=== PATIENT | female | born 1960 | race American Indian/Alaskan Native ===

== ENCOUNTER 2017-09-01 17:11 | Emergency (ER) | payer MEDICAID ==
[2017-09-01 19:58] LABS: Basophils % (Auto) 2.1 % (0.0-1.8); Hematocrit 33.2 % (30.3-42.9); Hemoglobin 10.8 gm/dl (10.1-14.3); Mean Corpuscular HGB Conc 33 % (30-34); Mean Corpuscular Hemoglobin 28 pg (28-32); Mean Corpuscular Volume 87 fl (79-97); Platelet Count 250 K/mm3 (140-440); Red Blood Count 3.83 M/mm3 (3.65-5.03); Red Cell Distribution Width 14.9 % (13.2-15.2); White Blood Count 9.2 K/mm3 (4.5-11.0)
[2017-09-01 20:23] LABS: Alanine Aminotransferase 12 units/L (7-56); Albumin 3.9 g/dL (3.9-5); Alkaline Phosphatase 134 units/L (35-129); Anion Gap 16 mmol/L; BUN/Creatinine Ratio 26; Bilirubin,Total < 0.20 mg/dL (0.1-1.2); Blood Urea Nitrogen 21 mg/dL (7-17); Calcium 9.1 mg/dL (8.4-10.2); Carbon Dioxide 24 mmol/L (22-30); Chloride 107.6 mmol/L (98-107); Glucose 117 mg/dL (65-100); Lipase 19 units/L (13-60); Potassium 3.8 mmol/L (3.6-5.0); Sodium 144 mmol/L (137-145); Total Protein 7.8 g/dL (6.3-8.2)
--- NOTE | 2017-09-02 07:43 | XRay Report ---
PA and lateral chest: Chest pain. There is focal atelectasis at the left base. Lungs otherwise appear clear and the heart is normal in size. There is no vascular congestion. Impression: Focal left basilar atelectasis.
[2017-09-02] MEDS ORDERED: MORPHINE IV ONE ×2 (08:19→10:32)
[2017-09-02] MEDS ORDERED: DECADRON IV ONE (08:19)
[2017-09-02] MEDS ORDERED: BENADRYL IV ONE (08:20)
--- NOTE | 2017-09-02 08:22 | Emergency Department Report ---
ED Chest Pain HPI - General Chief Complaint: Chest Pain Stated Complaint: VOMITING/BACK AND CHEST PAIN Time Seen by Provider: 09/02/17 07:49 Source: patient Mode of arrival: Ambulatory Limitations: No Limitations - History of Present Illness Initial Comments: 57-year-old female with known history of lupus here with a complaint of diffuse body aches and rash itchiness and some mild chest pain. The patient has had intermittent pain like this over the course of last 3 months. She states she's had multiple lupus flares of this time. She denies any shortness of breath. She's no fevers or but some chills. She's had some nausea. MD Complaint: chest pain, other (diffuse body pain) -: Sudden Onset: during rest Pain Location: left chest Pain Radiation: none Severity scale (0 -10): 10 Improves With: nothing Worsens With: nothing - Related Data Home Medications Medication Instructions Recorded Confirmed Last Taken AtorvaSTATin [Lipitor] 10 mg PO QHS 09/20/15 12/07/15 12/06/15 Metformin HCl [Fortamet ER] 500 mg PO QDAY 09/20/15 12/07/15 12/07/15 Metoprolol [Lopressor TAB] 25 mg PO BID 09/20/15 12/07/15 12/07/15 Previous Rx's Medication Instructions Recorded Last Taken Type Pantoprazole [Protonix TAB] 40 mg PO QDAY #30 tablet 09/24/15 1 Month Ago Rx ALPRAZolam [Xanax TAB] 0.25 mg PO TID PRN #15 tab 12/08/15 Unknown Rx Aspirin [Aspirin TAB] 325 mg PO QDAY #30 tablet 12/08/15 Unknown Rx Meclizine [Antivert] 12.5 mg PO BID PRN #10 tablet 12/08/15 Unknown Rx Promethazine [Phenergan TAB] 25 mg PO Q6HR PRN #20 tab 12/28/15 Unknown Rx Promethazine [Phenergan] 25 mg VA Q6HR PRN #20 supp.rect 12/28/15 Unknown Rx Ranitidine HCl [Zantac 150 MG TAB] 150 mg PO BID #30 tablet 12/28/15 Unknown Rx HYDROcodone/APAP 5-325 [[place] 1 - 2 each PO Q6HR PRN #14 tablet 09/02/17 Unknown Rx 5-325 mg TAB] predniSONE [Deltasone] 40 mg PO QDAY #8 tab 09/02/17 Unknown Rx Allergies Allergy/AdvReac Type Severity Reaction Status Date / Time metoclopramide HCl Allergy Swelling Verified 12/27/15 13:07 [From Reglan] morphine Allergy Itching Verified 12/27/15 13:07 ondansetron HCl [From Zofran] Allergy Swelling Verified 12/27/15 13:07 Penicillins Allergy Swelling Verified 12/27/15 13:07 prochlorperazine edisylate Allergy Swelling Verified 12/27/15 13:07 [From Compazine] prochlorperazine maleate Allergy Swelling Verified 12/27/15 13:07 [From Compazine] Sulfa (Sulfonamide Allergy Swelling Verified 12/27/15 13:07 Antibiotics) tramadol Allergy Swelling Verified 12/27/15 13:07 Heart Score - HEART Score History: Slightly suspicious EKG: Non-specific Age: 45-65 Risk factors: > 3 risk factors or hx of atherosclerotic disease Troponin: < normal limit HEART Score: 4 ED Review of Systems ROS: Stated complaint: VOMITING/BACK AND CHEST PAIN Other details as noted in HPI Comment: All other systems reviewed and negative Constitutional: chills. denies: fever Eyes: denies: eye pain, vision change ENT: denies: ear pain, throat pain Respiratory: denies: cough, shortness of breath, SOB with exertion, SOB at rest , wheezing Cardiovascular: denies: chest pain, palpitations Endocrine: no symptoms reported Gastrointestinal: denies: abdominal pain, nausea, diarrhea Genitourinary: denies: urgency, dysuria, discharge Musculoskeletal: denies: back pain, joint swelling, arthralgia Skin: denies: rash, lesions Neurological: denies: headache, weakness, paresthesias Psychiatric: denies: anxiety, depression Hematological/Lymphatic: denies: easy bleeding, easy bruising ED Past Medical Hx - Past Medical History Hx Hypertension: Yes Hx CVA: Yes (TIAs,) Hx Congestive Heart Failure: Yes Hx Diabetes: Yes Hx Arthritis: Yes (spine) Hx Headaches / Migraines: Yes Hx Psychiatric Treatment: Yes (anxiety) Hx Asthma: No Hx COPD: Yes Additional medical history: vertigo. lupus. sarcoidosis. Subarachnoid hemorrhage. DDD WITH L5 BULGING DISK - Surgical History Additional Surgical History: rt lung surgery BIOPSY 2004. x 5 - Family History Family history: no significant - Social History Smoking Status: Never Smoker Substance Use Type: None - Medications Home Medications: Home Medications Medication Instructions Recorded Confirmed Last Taken Type AtorvaSTATin [Lipitor] 10 mg PO QHS 09/20/15 12/07/15 12/06/15 History Metformin HCl [Fortamet ER] 500 mg PO QDAY 09/20/15 12/07/15 12/07/15 History Metoprolol [Lopressor TAB] 25 mg PO BID 09/20/15 12/07/15 12/07/15 History Pantoprazole [Protonix TAB] 40 mg PO QDAY #30 tablet 09/24/15 12/07/15 1 Month Ago Rx ALPRAZolam [Xanax TAB] 0.25 mg PO TID PRN #15 tab 12/08/15 Unknown Rx Aspirin [Aspirin TAB] 325 mg PO QDAY #30 tablet 12/08/15 Unknown Rx Meclizine [Antivert] 12.5 mg PO BID PRN #10 tablet 12/08/15 Unknown Rx Promethazine [Phenergan TAB] 25 mg PO Q6HR PRN #20 tab 12/28/15 Unknown Rx Promethazine [Phenergan] 25 mg VA Q6HR PRN #20 supp.rect 12/28/15 Unknown Rx Ranitidine HCl [Zantac 150 MG TAB] 150 mg PO BID #30 tablet 12/28/15 Unknown Rx HYDROcodone/APAP 5-325 [[place] 1 - 2 each PO Q6HR PRN #14 tablet 09/02/17 Unknown Rx 5-325 mg TAB] predniSONE [Deltasone] 40 mg PO QDAY #8 tab 09/02/17 Unknown Rx ED Physical Exam - General Limitations: No Limitations General appearance: alert, in no apparent distress - Head Head exam: Present: atraumatic, normocephalic - Eye Eye exam: Present: normal appearance - ENT ENT exam: Present: mucous membranes moist - Neck Neck exam: Present: normal inspection - Respiratory Respiratory exam: Present: normal lung sounds bilaterally. Absent: respiratory distress, wheezes, rales - Cardiovascular Cardiovascular Exam: Present: regular rate, normal rhythm. Absent: systolic murmur, diastolic murmur, rubs, gallop - GI/Abdominal GI/Abdominal exam: Present: soft, normal bowel sounds. Absent: distended, tenderness - Extremities Exam Extremities exam: Present: normal inspection - Back Exam Back exam: Present: normal inspection - Neurological Exam Neurological exam: Present: alert, oriented X3 - Psychiatric Psychiatric exam: Present: normal affect, normal mood - Skin Skin exam: Present: warm, dry, intact, normal color. Absent: rash ED Course Vital Signs 09/01/17 09/02/17 09/02/17 18:32 01:47 08:12 Temperature 98 F 97.5 F L 97.6 F Pulse Rate 64 52 L 54 L Respiratory 20 18 16 Rate Blood Pressure 156/81 152/76 Blood Pressure 136/63 [Left] O2 Sat by Pulse 100 100 100 Oximetry 09/02/17 09:46 Temperature Pulse Rate 61 Respiratory 15 Rate Blood Pressure Blood Pressure [Left] O2 Sat by Pulse Oximetry LAURO score - Lauro Score Age > 65: (0) No Aspirin use within the Past 7 Days: (0) No 3 or more CAD Risk Factors: (1) Yes 2 or more Angina events in past 24 hrs: (0) No Known CAD with more than 50% Stenosis: (0) No Elevated Cardiac Markers: (0) No ST Deviation Greater than 0.5mm: (0) No LAURO Score: 1 ED Medical Decision Making - Lab Data Result diagrams: 09/01/17 19:47 09/01/17 19:47 Laboratory Results - last 24 hr 09/01/17 09/01/17 19:47 19:47 WBC 9.2 RBC 3.83 Hgb 10.8 Hct 33.2 MCV 87 MCH 28 MCHC 33 RDW 14.9 Plt Count 250 Lymph % (Auto) 17.6 Carter % (Auto) 4.6 Eos % (Auto) 0.0 Baso % (Auto) 2.1 H Lymph # 1.6 Carter # 0.4 Eos # 0.0 Baso # 0.2 H Seg Neutrophils % 75.7 H Seg Neutrophils # 6.9 Sodium 144 Potassium 3.8 Chloride 107.6 H Carbon Dioxide 24 Anion Gap 16 BUN 21 H Creatinine 0.8 Estimated GFR > 60 BUN/Creatinine Ratio 26 Glucose 117 H Calcium 9.1 Total Bilirubin < 0.20 AST 12 ALT 12 Alkaline Phosphatase 134 H Troponin T < 0.010 Total Protein 7.8 Albumin 3.9 Albumin/Globulin Ratio 1.0 Lipase 19 - EKG Data -: EKG Interpreted by Ia - EKG Data 09/02/17 08:38 Sinus 64 normal axis normal intervals and no ST-T wave changes - Medical Decision Making Patient is a 57-year-old female who presents to the emergency department with complaint of total body pain. Patient has a history of lupus and has had multiple flares lately. She is currently taking 4 mg of Decadron daily. She describes the pain as diffuse and all over her body. She does have some chest pain. She denies shortness of breath. No fevers. Some chills. Her EKG is nonischemic and I do not think she has any cardiac issues. This is likely a lupus flare. Plan treat the patient's pain here and discharged home. Portions of this chart were dictated with dictation software. There may be dictation errors contained within this note. Workup negative plan to discharge patient with increased steroids and follow-up with her Lupus specialist. Critical care attestation.: If time is entered above; I have spent that time in minutes in the direct care of this critically ill patient, excluding procedure time. ED Disposition Clinical Impression: Lupus, Chest pain Disposition: DC- TO HOME OR SELFCARE Is pt being admited?: No Condition: Stable Instructions: Chest Pain (ED) Prescriptions: HYDROcodone/APAP 5-325 [[place] 5-325 mg TAB] 1 - 2 each PO Q6HR PRN #14 tablet PRN Reason: Pain predniSONE [Deltasone] 40 mg PO QDAY #8 tab Referrals: KUNAL STONE DO [Primary Care Provider] - 3-5 Days
[2017-09-02 11:27] VITALS: BP 121/61
== END 2017-09-02 11:30 | disposition home or self-care (01) ==
LOC: ED 17:11
DX: R07.89 Other chest pain (principal); L93.0 Discoid lupus erythematosus; I10 Essential (primary) hypertension; I50.9 Heart failure, unspecified; E11.9 Type 2 diabetes mellitus without complications; M19.90 Unspecified osteoarthritis, unspecified site; G43.909 Migraine, unspecified, not intractable, without status migrainosus; F41.9 Anxiety disorder, unspecified; J44.9 Chronic obstructive pulmonary disease, unspecified; Z86.73 Personal history of transient ischemic attack (TIA), and cerebral infarction without residual deficits; Z88.0 Allergy status to penicillin; Z88.1 Allergy status to other antibiotic agents; Z88.6 Allergy status to analgesic agent; Z88.5 Allergy status to narcotic agent
CPT/HCPCS: 36415; 71020; 80053; 83690; 84484; 85025; 93005; 93010; 96374; 96375; 96376; 99284; J1100; J1200; J2270

== ENCOUNTER 2017-12-23 04:12 | Emergency (ER) | payer MEDICAID ==
--- NOTE | 2017-12-23 06:28 | XRay Report ---
FINAL REPORT EXAM: XR SPINE LUMBOSACRAL 2-3V HISTORY: lower back pain TECHNIQUE: Three views of the lumbar spine were obtained. FINDINGS: There is a mild levoscoliosis of the lumbar spine. There is severe narrowing of the L5-S1 disc with bilateral facet arthropathy changes. There is a grade 1 anterolisthesis of L4 over L5 secondary to severe disc degeneration and facet arthropathy changes. There is mild narrowing of the L3-4 disc with mild facet arthropathy changes. There is also [id number] narrowing of the L2-3 disc with endplate spurring. There is no evidence of fracture. The SI joints are unremarkable. IMPRESSION: Grade 1 anterolisthesis of L4 over L5 secondary to severe disc degeneration and facet arthropathy changes. Severe disc degeneration at the L5-S1 level with facet arthropathy changes. Underlying spinal stenosis cannot be excluded. [id number]-[id number] disc degeneration at the L2-3 and L3-4 levels with additional facet arthropathy changes at the L3-4 level. No evidence of fracture.
[2017-12-23 07:28] LABS: Basophils % (Auto) 0.5 % (0.0-1.8); Eosinophils # (Auto) 0.1 K/mm3 (0.0-0.4); Eosinophils % (Auto) 2.1 % (0.0-4.3); Hematocrit 34.4 % (30.3-42.9); Lymphocytes # (Auto) 2.1 K/mm3 (1.2-5.4); Lymphocytes % (Auto) 29.8 % (13.4-35.0); Mean Corpuscular HGB Conc 32 % (30-34); Mean Corpuscular Hemoglobin 28 pg (28-32); Mean Corpuscular Volume 87 fl (79-97); Monocytes # (Auto) 0.8 K/mm3 (0.0-0.8); Monocytes % (Auto) 11.8 % (0.0-7.3); Platelet Count 240 K/mm3 (140-440); Red Blood Count 3.98 M/mm3 (3.65-5.03); Red Cell Distribution Width 14.7 % (13.2-15.2)
[2017-12-23 07:58] LABS: BUN/Creatinine Ratio 18; Blood Urea Nitrogen 16 mg/dL (7-17); Hemolysis Index 9
[2017-12-23 08:28] LABS: Bilirubin,Urine NEG (Negative); Blood,Urine NEG (Negative); Color,Urine Yellow (Yellow); Mucus,Urine FEW /HPF; Nitrite,Urine NEG (Negative); Protein,Urine <15 mg/dL mg/dL (Negative); Urobilinogen,Urine < 2.0 mg/dL (<2.0)
[2017-12-23 08:30] LABS: WBC,Urine < 1.0 /HPF (0.0-6.0)
--- NOTE | 2017-12-23 15:53 | Emergency Department Report ---
ED Back Pain/Injury HPI - General Chief Complaint: Back Pain/Injury Stated Complaint: BACK PAIN Time Seen by Provider: 12/23/17 15:12 Source: family Limitations: No Limitations - History of Present Illness Initial Comments: Mrs. Williamson is a 57-year-old female with a history of lupus admitted to the hospital and a half ago for lupus flare. She was given Solu-Medrol while in the hospital, but on discharge she was given a prednisone taper. According to the Mrs. Williamson, when she started to taper from the steroids she started having back pain leg pain and generalized body pain. She feels that the taper is too quick. MD Complaint: back pain -: Gradual (secondary to prednisone taper) Similar Symptoms Previously: Yes Place: home Radiation: none Severity scale (0 -10): 10 Quality: aching Consistency: constant Improves With: other (steroids) Worsens With: movement, walking Context: other (prednisone taper) Associated Symptoms: denies other symptoms - Related Data Home Medications Medication Instructions Recorded Confirmed Last Taken PROzac 10 mg PO DAILY 12/08/17 12/08/17 12/06/17 Previous Rx's Medication Instructions Recorded Last Taken Type ALPRAZolam [Xanax TAB] 0.25 mg PO TID PRN #15 tab 12/10/17 Unknown Rx Albuterol Sulfate [Albuterol 0.63% 0.63 mg IH TID PRN #180 vial.neb 12/10/17 Unknown Rx NEBS] AtorvaSTATin [Lipitor] 10 mg PO QHS #30 tablet 12/10/17 Unknown Rx Docusate Sodium [Colace CAP] 100 mg PO BID #60 capsule 12/10/17 Unknown Rx HYDROmorphone [Dilaudid] 2 mg PO Q4H PRN #14 tablet 12/10/17 Unknown Rx Ipratropium/Albuter (Nf) 2 puff IH QID #1 inha 12/10/17 Unknown Rx [Combivent Inhaler] Meclizine [Antivert] 25 mg PO TID PRN #90 tablet 12/10/17 Unknown Rx Metoprolol [Lopressor TAB] 25 mg PO BID #60 tablet 12/10/17 Unknown Rx Prednisone [predniSONE 10 mg 10 mg PO .TAPER #1 tab.ds.pk 12/10/17 Unknown Rx (6-Day Pack, 21 Tabs)] Ranitidine HCl [Zantac 150 MG TAB] 150 mg PO BID #60 tablet 12/10/17 Unknown Rx HYDROmorphone [Dilaudid] 2 mg PO Q6HR #12 tablet 12/23/17 Unknown Rx Allergies Allergy/AdvReac Type Severity Reaction Status Date / Time metoclopramide HCl Allergy Swelling Verified 12/27/15 13:07 [From Reglan] morphine Allergy Itching Verified 12/27/15 13:07 ondansetron HCl [From Zofran] Allergy Swelling Verified 12/27/15 13:07 Penicillins Allergy Swelling Verified 12/27/15 13:07 prochlorperazine edisylate Allergy Swelling Verified 12/27/15 13:07 [From Compazine] prochlorperazine maleate Allergy Swelling Verified 12/27/15 13:07 [From Compazine] Sulfa (Sulfonamide Allergy Swelling Verified 12/27/15 13:07 Antibiotics) tramadol Allergy Swelling Verified 12/27/15 13:07 ED Review of Systems ROS: Stated complaint: BACK PAIN Other details as noted in HPI Constitutional: denies: chills, fever Eyes: denies: eye pain, eye discharge, vision change ENT: denies: ear pain, throat pain Respiratory: denies: cough, shortness of breath, wheezing Cardiovascular: denies: chest pain, palpitations Endocrine: no symptoms reported Gastrointestinal: denies: abdominal pain, nausea, diarrhea Genitourinary: denies: urgency, dysuria, discharge Musculoskeletal: denies: joint swelling, arthralgia Skin: denies: rash, lesions Neurological: denies: headache, weakness, paresthesias Psychiatric: depression. denies: anxiety Hematological/Lymphatic: denies: easy bleeding, easy bruising ED Past Medical Hx - Past Medical History Previous Medical History?: Yes Hx Hypertension: Yes Hx CVA: Yes (TIAs) Hx Congestive Heart Failure: Yes Hx Diabetes: Yes Hx Arthritis: Yes (spine) Hx Headaches / Migraines: Yes Hx Psychiatric Treatment: Yes (anxiety) Hx Asthma: No Hx COPD: Yes Additional medical history: vertigo. lupus. sarcoidosis. Subarachnoid hemorrhage. DDD WITH L5 BULGING DISK - Surgical History Past Surgical History?: Yes Additional Surgical History: rt lung surgery BIOPSY 2004. x 5 - Social History Smoking Status: Never Smoker Substance Use Type: None - Medications Home Medications: Home Medications Medication Instructions Recorded Confirmed Last Taken Type PROzac 10 mg PO DAILY 12/08/17 12/08/17 12/06/17 History ALPRAZolam [Xanax TAB] 0.25 mg PO TID PRN #15 tab 12/10/17 Unknown Rx Albuterol Sulfate [Albuterol 0.63% 0.63 mg IH TID PRN #180 vial.neb 12/10/17 Unknown Rx NEBS] AtorvaSTATin [Lipitor] 10 mg PO QHS #30 tablet 12/10/17 Unknown Rx Docusate Sodium [Colace CAP] 100 mg PO BID #60 capsule 12/10/17 Unknown Rx HYDROmorphone [Dilaudid] 2 mg PO Q4H PRN #14 tablet 12/10/17 Unknown Rx Ipratropium/Albuter (Nf) 2 puff IH QID #1 inha 12/10/17 Unknown Rx [Combivent Inhaler] Meclizine [Antivert] 25 mg PO TID PRN #90 tablet 12/10/17 Unknown Rx Metoprolol [Lopressor TAB] 25 mg PO BID #60 tablet 12/10/17 Unknown Rx Prednisone [predniSONE 10 mg 10 mg PO .TAPER #1 tab.ds.pk 12/10/17 Unknown Rx (6-Day Pack, 21 Tabs)] Ranitidine HCl [Zantac 150 MG TAB] 150 mg PO BID #60 tablet 12/10/17 Unknown Rx HYDROmorphone [Dilaudid] 2 mg PO Q6HR #12 tablet 12/23/17 Unknown Rx ED Physical Exam - General Limitations: No Limitations General appearance: alert, in no apparent distress - Head Head exam: Present: atraumatic, normocephalic - Eye Eye exam: Present: normal appearance, EOMI - ENT ENT exam: Present: mucous membranes moist - Neck Neck exam: Present: normal inspection, full ROM - Respiratory Respiratory exam: Present: normal lung sounds bilaterally. Absent: respiratory distress, wheezes, rales, rhonchi - Cardiovascular Cardiovascular Exam: Present: regular rate, normal rhythm. Absent: systolic murmur, diastolic murmur, rubs, gallop - GI/Abdominal GI/Abdominal exam: Present: soft, normal bowel sounds, other. Absent: distended , tenderness - Rectal Rectal exam: Present: deferred - Extremities Exam Extremities exam: Present: normal inspection, full ROM, other (fat) - Back Exam Back exam: Present: normal inspection, full ROM - Neurological Exam Neurological exam: Present: alert, oriented X3, CN II-XII intact - Psychiatric Psychiatric exam: Present: normal affect, normal mood - Skin Skin exam: Present: warm, dry, intact, normal color. Absent: rash ED Course Vital Signs 12/23/17 12/23/17 04:19 16:06 Temperature 98.4 F 98.6 F Pulse Rate 69 66 Respiratory 18 18 Rate Blood Pressure 156/82 Blood Pressure 110/50 [Right] O2 Sat by Pulse 98 100 Oximetry - Reevaluation(s) Reevaluation #1: 12/23/17 17:24 Dr. Wyatt the patient's PCP came to the emergency department to examine her. He recommended Solu-Medrol and Dilaudid. And once her discharge with 2 days' worth of Dilaudid and no steroids. ED Medical Decision Making - Lab Data Result diagrams: 12/23/17 07:00 12/23/17 07:00 - Radiology Data Radiology results: report reviewed (x-ray lumbar spine: Grade 1 anterior listhesis of L4 over L5 secondary to severe disc degeneration and facet arthropathy changes:; Severe disc degeneration at L5-S1 level with facet arthropathy changes; mild to moderate discharge degeneration at the L2 to 3 and L3 to 4 levels with additional facet arthropathy changes at the L3 to L4 level) Critical care attestation.: If time is entered above; I have spent that time in minutes in the direct care of this critically ill patient, excluding procedure time. 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 Wyatt tomorrow. Return to the emergency department if you have any urinating on herself or bowel movement on herself or inability to urinate or inability to have a bowel movement Or for any increasing ear symptoms or for any concerns. Prescriptions: HYDROmorphone [Dilaudid] 2 mg PO Q6HR #12 tablet Referrals: PAYAM MURILLO MD [Primary Care Provider] - 3-5 Days Time of Disposition: 16:06 (Dr. WYATT her PCP was paged and he came and examined the patient and will see her tomorrow in the office.)
[2017-12-23 16:08] VITALS: BP 110/50
[2017-12-23] MEDS ORDERED: DILAUDID PO ONE (17:15)
[2017-12-23] MEDS ORDERED: BENADRYL PO ONE ×2 (17:33→17:34)
[2017-12-23] MEDS ORDERED: PERCOCET 5/325 ONE (17:54)
== END 2017-12-23 18:57 | disposition home or self-care (01) ==
LOC: ED 04:12
DX: M51.36 Other intervertebral disc degeneration, lumbar region (principal); L93.0 Discoid lupus erythematosus; Z86.73 Personal history of transient ischemic attack (TIA), and cerebral infarction without residual deficits; I50.9 Heart failure, unspecified; E11.9 Type 2 diabetes mellitus without complications; F41.9 Anxiety disorder, unspecified; I10 Essential (primary) hypertension; J44.9 Chronic obstructive pulmonary disease, unspecified; Z88.6 Allergy status to analgesic agent; Z88.8 Allergy status to other drugs, medicaments and biological substances
CPT/HCPCS: 36415; 72100; 80048; 81001; 85025; 96372; 99284; J2930

== ENCOUNTER 2018-02-21 03:53 | Emergency (ER) | payer MEDICAID ==
[2018-02-21 06:43] LABS: Basophils # (Auto) 0.1 K/mm3 (0.0-0.1); Basophils % (Auto) 0.9 % (0.0-1.8); Eosinophils # (Auto) 0.2 K/mm3 (0.0-0.4); Eosinophils % (Auto) 3.2 % (0.0-4.3); Hemoglobin 11.4 gm/dl (10.1-14.3); Lymphocytes # (Auto) 2.7 K/mm3 (1.2-5.4); Lymphocytes % (Auto) 40.7 % (13.4-35.0); Mean Corpuscular HGB Conc 33 % (30-34); Mean Corpuscular Hemoglobin 28 pg (28-32); Mean Corpuscular Volume 86 fl (79-97); Monocytes # (Auto) 0.7 K/mm3 (0.0-0.8); Monocytes % (Auto) 9.9 % (0.0-7.3); Platelet Count 240 K/mm3 (140-440); Red Blood Count 4.07 M/mm3 (3.65-5.03); Red Cell Distribution Width 14.7 % (13.2-15.2)
[2018-02-21 07:03] LABS: Albumin 3.6 g/dL (3.9-5); BUN/Creatinine Ratio 23; Blood Urea Nitrogen 21 mg/dL (7-17); Calcium 9.2 mg/dL (8.4-10.2); Hemolysis Index 178; Lipase 22 units/L (13-60)
[2018-02-21 07:17] LABS: Alanine Aminotransferase 25 units/L (7-56)
[2018-02-21 07:59] LABS: Bilirubin,Urine NEG (Negative); Color,Urine Yellow (Yellow)
[2018-02-21 08:00] LABS: Bacteria,Urine 1+ /HPF (Negative); Blood,Urine NEG (Negative); Mucus,Urine FEW /HPF; Protein,Urine <15 mg/dL mg/dL (Negative); Urobilinogen,Urine < 2.0 mg/dL (<2.0)
--- NOTE | 2018-02-21 10:58 | Cat Scan Report ---
CT ABDOMEN AND PELVIS WITHOUT CONTRAST: 02/21/18 03:53:00 CLINICAL:Right flank pain. TECHNIQUE: Volumetric acquisition and 1.25 millimeter scan reconstructions from the lung bases through the pelvis. The study was performed without oral contrast. FINDINGS: Abdomen: The uppermost cut demonstrates wedge-shaped opacification of the lingula. The lung bases are otherwise clear. No urinary calculi identified. The kidneys are small with the right kidney measuring 8.7 x 4.2 x 3.6 cm and the left kidney measuring 8.8 x 5.9 x 5.0 cm. The renal collecting systems and ureters are nondilated. A 1.4 cm benign cyst in the posterior midportion of the right kidney. Normal adrenal glands. Normal liver, bile ducts and gallbladder. Stomach is normal but there are a few prominent lymph nodes medial to the gastric fundus. The largest measures 2.2 x 1.2 cm. Normal duodenum, pancreas and spleen. No ascites and no pneumoperitoneum. The small bowel and colon are normal. The appendix is well imaged and normal. Pelvis: Normal bladder, uterus and rectum.Normal right ovary. The left ovary is not identified. Status post bilateral tubal ligation. Normal sigmoid colon. IMPRESSION: 1. Small but otherwise normal kidneys. 2. No urinary calculus and no signs of pyelonephritis. 3. Lingular airspace disease, scar or atelectasis. 4. Nonspecific upper abdominal lymphadenopathy. 5. Normal pelvis but no left ovary identified.
[2018-02-21] MEDS ORDERED: TORADOL IM ONE (11:24)
--- NOTE | 2018-02-21 12:42 | Emergency Department Report ---
ED General Adult HPI - General Chief complaint: Back Pain/Injury Stated complaint: BACK PAIN Time Seen by Provider: 02/21/18 09:40 Source: patient Mode of arrival: Ambulatory Limitations: No Limitations - History of Present Illness Initial comments: Mrs. Williamson is a 57-year-old female with history of lupus multiple comorbidities presents with right lower quadrant pain radiating to the right flank for 2 days. She has nausea and vomiting. She denies dysuria. She denies hematuria. Pain is 9 out of 10 sharp pain. No change with movement. Pain is been constant. Patient also has pain in her right anterior thigh. Very tender to touch. With mild swelling. No fever. No trauma. Gradual onset of this pain several days prior. Has had history of lupus flare. Severity scale (0 -10): 0 - Related Data Home Medications Medication Instructions Recorded Confirmed Last Taken PROzac 10 mg PO DAILY 12/08/17 12/08/17 12/06/17 Previous Rx's Medication Instructions Recorded Last Taken Type ALPRAZolam [Xanax TAB] 0.25 mg PO TID PRN #15 tab 12/10/17 Unknown Rx Albuterol Sulfate [Albuterol 0.63% 0.63 mg IH TID PRN #180 vial.neb 12/10/17 Unknown Rx NEBS] AtorvaSTATin [Lipitor] 10 mg PO QHS #30 tablet 12/10/17 Unknown Rx Docusate Sodium [Colace CAP] 100 mg PO BID #60 capsule 12/10/17 Unknown Rx HYDROmorphone [Dilaudid] 2 mg PO Q4H PRN #14 tablet 12/10/17 Unknown Rx Ipratropium/Albuter (Nf) 2 puff IH QID #1 inha 12/10/17 Unknown Rx [Combivent Inhaler] Meclizine [Antivert] 25 mg PO TID PRN #90 tablet 12/10/17 Unknown Rx Metoprolol [Lopressor TAB] 25 mg PO BID #60 tablet 12/10/17 Unknown Rx Prednisone [predniSONE 10 mg 10 mg PO .TAPER #1 tab.ds.pk 12/10/17 Unknown Rx (6-Day Pack, 21 Tabs)] Ranitidine HCl [Zantac 150 MG TAB] 150 mg PO BID #60 tablet 12/10/17 Unknown Rx HYDROmorphone [Dilaudid] 2 mg PO Q6HR #12 tablet 12/23/17 Unknown Rx HYDROmorphone [Dilaudid] 2 mg PO Q6HR PRN #8 tablet 02/21/18 Unknown Rx Allergies Allergy/AdvReac Type Severity Reaction Status Date / Time acetaminophen [From Percocet] Allergy Swelling Verified 12/23/17 18:04 metoclopramide HCl Allergy Swelling Verified 12/27/15 13:07 [From Reglan] morphine Allergy Itching Verified 12/27/15 13:07 ondansetron HCl [From Zofran] Allergy Swelling Verified 12/27/15 13:07 oxycodone [From Percocet] Allergy Swelling Verified 12/23/17 18:04 Penicillins Allergy Swelling Verified 12/27/15 13:07 prochlorperazine edisylate Allergy Swelling Verified 12/27/15 13:07 [From Compazine] prochlorperazine maleate Allergy Swelling Verified 12/27/15 13:07 [From Compazine] Sulfa (Sulfonamide Allergy Swelling Verified 12/27/15 13:07 Antibiotics) tramadol Allergy Swelling Verified 12/27/15 13:07 ED Review of Systems ROS: Stated complaint: BACK PAIN Other details as noted in HPI Comment: All other systems reviewed and negative Respiratory: denies: cough Cardiovascular: denies: chest pain Gastrointestinal: nausea, vomiting ED Past Medical Hx - Past Medical History Hx Hypertension: Yes Hx CVA: Yes (TIAs) Hx Congestive Heart Failure: Yes Hx Diabetes: Yes Hx Arthritis: Yes (spine) Hx Headaches / Migraines: Yes Hx Psychiatric Treatment: Yes (anxiety) Hx Asthma: No Hx COPD: Yes Additional medical history: vertigo. lupus. sarcoidosis. Subarachnoid hemorrhage. DDD WITH L5 BULGING DISK - Surgical History Additional Surgical History: rt lung surgery BIOPSY 2004. x 5, Uterine Ablation - Social History Smoking Status: Never Smoker Substance Use Type: None - Medications Home Medications: Home Medications Medication Instructions Recorded Confirmed Last Taken Type PROzac 10 mg PO DAILY 12/08/17 12/08/17 12/06/17 History ALPRAZolam [Xanax TAB] 0.25 mg PO TID PRN #15 tab 12/10/17 Unknown Rx Albuterol Sulfate [Albuterol 0.63% 0.63 mg IH TID PRN #180 vial.neb 12/10/17 Unknown Rx NEBS] AtorvaSTATin [Lipitor] 10 mg PO QHS #30 tablet 12/10/17 Unknown Rx Docusate Sodium [Colace CAP] 100 mg PO BID #60 capsule 12/10/17 Unknown Rx HYDROmorphone [Dilaudid] 2 mg PO Q4H PRN #14 tablet 12/10/17 Unknown Rx Ipratropium/Albuter (Nf) 2 puff IH QID #1 inha 12/10/17 Unknown Rx [Combivent Inhaler] Meclizine [Antivert] 25 mg PO TID PRN #90 tablet 12/10/17 Unknown Rx Metoprolol [Lopressor TAB] 25 mg PO BID #60 tablet 12/10/17 Unknown Rx Prednisone [predniSONE 10 mg 10 mg PO .TAPER #1 tab.ds.pk 12/10/17 Unknown Rx (6-Day Pack, 21 Tabs)] Ranitidine HCl [Zantac 150 MG TAB] 150 mg PO BID #60 tablet 12/10/17 Unknown Rx HYDROmorphone [Dilaudid] 2 mg PO Q6HR #12 tablet 12/23/17 Unknown Rx HYDROmorphone [Dilaudid] 2 mg PO Q6HR PRN #8 tablet 02/21/18 Unknown Rx ED Physical Exam - General Limitations: No Limitations General appearance: alert, in no apparent distress - Head Head exam: Present: atraumatic, normocephalic - Eye Eye exam: Present: normal appearance - ENT ENT exam: Present: mucous membranes moist - Neck Neck exam: Present: normal inspection - Respiratory Respiratory exam: Present: normal lung sounds bilaterally. Absent: respiratory distress, wheezes, rhonchi - Cardiovascular Cardiovascular Exam: Present: regular rate, normal rhythm. Absent: systolic murmur, diastolic murmur, rubs, gallop - GI/Abdominal GI/Abdominal exam: Present: soft, normal bowel sounds. Absent: distended, tenderness, guarding, rebound - Extremities Exam Extremities exam: Present: normal inspection, other (mild anterior thigh tenderness without swelling) - Back Exam Back exam: Present: normal inspection - Neurological Exam Neurological exam: Present: alert, oriented X3 - Psychiatric Psychiatric exam: Present: normal affect, normal mood - Skin Skin exam: Present: warm, dry, intact, normal color. Absent: rash ED Course Vital Signs 02/21/18 02/21/1818 05:32 09:43 09:45 Temperature 97.6 F Pulse Rate 73 Respiratory 20 Rate Blood Pressure 178/69 104/50 Blood Pressure [Left] O2 Sat by Pulse 98 100 96 Oximetry 02/21/18 02/21/18 02/21/18 10:00 10:15 10:40 Temperature Pulse Rate Respiratory Rate Blood Pressure 130/56 120/61 130/56 Blood Pressure [Left] O2 Sat by Pulse 96 97 45 L Oximetry 02/21/18 02/21/18 02/21/18 10:46 11:00 11:12 Temperature 98.9 F Pulse Rate 88 Respiratory 20 Rate Blood Pressure 127/65 143/68 Blood Pressure 128/82 [Left] O2 Sat by Pulse 100 96 100 Oximetry ED Medical Decision Making - Lab Data Result diagrams: 02/21/18 05:57 02/21/18 05:57 Laboratory Results - last 24 hr 02/21/18 02/21/18 02/21/18 05:57 05:57 06:53 WBC 6.8 RBC 4.07 Hgb 11.4 Hct 35.0 MCV 86 MCH 28 MCHC 33 RDW 14.7 Plt Count 240 Lymph % (Auto) 40.7 H [place] % (Auto) 9.9 H Eos % (Auto) 3.2 Baso % (Auto) 0.9 Lymph # 2.7 [place] # 0.7 Eos # 0.2 Baso # 0.1 Seg Neutrophils % 45.3 Seg Neutrophils # 3.1 Sodium 142 Potassium 5.3 H Chloride 105.2 Carbon Dioxide 22 Anion Gap 20 BUN 21 H Creatinine 0.9 Estimated GFR > 60 BUN/Creatinine Ratio 23 Glucose 77 Calcium 9.2 Total Bilirubin 0.30 AST 36 ALT 25 Alkaline Phosphatase 116 Total Protein 7.8 Albumin 3.6 L Albumin/Globulin Ratio 0.9 Lipase 22 Urine Color Yellow Urine Turbidity Clear Urine pH 5.0 Ur Specific [place] 1.025 Urine Protein <15 mg/dl Urine Glucose (UA) Neg Urine Ketones Neg Urine Blood Neg Urine Nitrite Neg Urine Bilirubin Neg Urine Urobilinogen < 2.0 Ur Leukocyte Esterase Neg Urine WBC (Auto) 1.0 Urine RBC (Auto) 1.0 U Epithel Cells (Auto) 2.0 Urine Bacteria (Auto) 1+ Urine Mucus Few Vital Signs - 24 hr 02/21/18 02/21/18 02/21/18 05:32 09:43 09:45 Temperature 97.6 F Pulse Rate 73 Respiratory 20 Rate Blood Pressure 178/69 104/50 Blood Pressure [Left] O2 Sat by Pulse 98 100 96 Oximetry 02/21/18 02/21/18 02/21/18 10:00 10:15 10:40 Temperature Pulse Rate Respiratory Rate Blood Pressure 130/56 120/61 130/56 Blood Pressure [Left] O2 Sat by Pulse 96 97 45 L Oximetry 02/21/18 02/21/18 02/21/18 10:46 11:00 11:12 Temperature 98.9 F Pulse Rate 88 Respiratory 20 Rate Blood Pressure 127/65 143/68 Blood Pressure 128/82 [Left] O2 Sat by Pulse 100 96 100 Oximetry - Medical Decision Making Mrs. blanco presents with right flank pain. No indication of appendicitis or renal colic. Mentation of intra-abdominal process. Right lower extremity pain differential diagnosis includes sciatica versus lupus flare. Unfortunately with multiple drug allergies, unable to treat with hydromorphine or morphine in the ED due to unavailability of these medications. She has allergy to Toradol and tramadol. I have prescribed oral Dilaudid until she is in able to see her PCP Dr. Wyatt on Friday. Critical care attestation.: If time is entered above; I have spent that time in minutes in the direct care of this critically ill patient, excluding procedure time. ED Disposition Clinical Impression: Right flank pain, Right leg pain, Lupus Disposition: TO HOME OR SELFCARE Is pt being admited?: No Does the pt Need Aspirin: No Condition: Stable Instructions: Lumbar Radiculopathy (ED) Prescriptions: HYDROmorphone [Dilaudid] 2 mg PO Q6HR PRN #8 tablet PRN Reason: Pain Referrals: ZOFIA WYATT MD [Staff Physician] - 2-3 Days Time of Disposition: 12:43
[2018-02-21] MEDS ORDERED: ZOFRAN ODT ONE (13:01)
[2018-02-21] MEDS ORDERED: PHENERGAN ONE (13:03)
[2018-02-21] MEDS ORDERED: PHENERGAN PO ONE (13:05)
[2018-02-21 13:52] VITALS: BP 133/42
== END 2018-02-21 14:06 | disposition home or self-care (01) ==
LOC: ED 03:53
DX: M32.9 Systemic lupus erythematosus, unspecified (principal); R10.31 Right lower quadrant pain; M79.651 Pain in right thigh; R11.2 Nausea with vomiting, unspecified; I11.0 Hypertensive heart disease with heart failure; I50.9 Heart failure, unspecified; E11.9 Type 2 diabetes mellitus without complications; F41.9 Anxiety disorder, unspecified; G43.909 Migraine, unspecified, not intractable, without status migrainosus; M47.9 Spondylosis, unspecified; J44.9 Chronic obstructive pulmonary disease, unspecified; Z86.73 Personal history of transient ischemic attack (TIA), and cerebral infarction without residual deficits; Z88.6 Allergy status to analgesic agent; Z88.5 Allergy status to narcotic agent; Z88.8 Allergy status to other drugs, medicaments and biological substances
CPT/HCPCS: 36415; 74176; 80053; 81001; 83690; 85025; 99284; J1885; Q0162; Q0169

== ENCOUNTER 2018-12-26 20:32 | Inpatient (IN) | payer MEDICAID ==
[2018-12-26] MEDS ORDERED: ASPIRIN PO ONE (20:50)
[2018-12-26 21:29] LABS: Basophils # (Auto) 0.1 K/mm3 (0.0-0.1); Basophils % (Auto) 0.9 % (0.0-1.8); Eosinophils # (Auto) 0.2 K/mm3 (0.0-0.4); Eosinophils % (Auto) 2.5 % (0.0-4.3); Hematocrit 35.5 % (30.3-42.9); Hemoglobin 11.4 gm/dl (10.1-14.3); Lymphocytes # (Auto) 2.6 K/mm3 (1.2-5.4); Mean Corpuscular HGB Conc 32 % (30-34); Mean Corpuscular Volume 90 fl (79-97); Monocytes # (Auto) 0.8 K/mm3 (0.0-0.8); Monocytes % (Auto) 11.9 % (0.0-7.3); Platelet Count 246 K/mm3 (140-440); Red Blood Count 3.96 M/mm3 (3.65-5.03); Red Cell Distribution Width 14.4 % (13.2-15.2)
[2018-12-26 21:33] LABS: BUN/Creatinine Ratio 19; Blood Urea Nitrogen 25 mg/dL (7-17); Calcium 9.8 mg/dL (8.4-10.2); Hemolysis Index 2
[2018-12-27] MEDS ORDERED: MORPHINE IV ONE ×3 (00:21→21:26)
[2018-12-27] MEDS ORDERED: BENADRYL IV ONE ×3 (00:21→21:25)
--- NOTE | 2018-12-27 00:24 | Emergency Department Report ---
ED Chest Pain HPI - General Chief Complaint: Chest Pain Stated Complaint: CP,VOMITING Time Seen by Provider: 12/27/18 00:10 Source: patient Mode of arrival: Ambulatory Limitations: No Limitations - History of Present Illness Initial Comments: Patient is a 8-year-old female that presents to emergency room with complaints of chest pain, nausea vomiting and diarrhea 2 days. Patient states the chest pain is substernal and 10 out of 10 and nonradiating. Patient states that the pain is better with rest and worse with exertion. Patient states that she's had a gastrointestinal virus causing her to have nausea vomiting and diarrhea. Patient states that she's having mild epigastric tenderness. Patient states that she's been able to tolerate oral intake. Patient states that she has multiple comorbidities and risk factors. Patient has a history of diabetes, CHF, COPD, CVA, hypertension. Denies shortness of breath. Patient denies fever and chills. MD Complaint: chest pain Onset: during rest Pain Location: substernal, left chest Pain Radiation: none Severity: severe Severity scale (0 -10): 10 Quality: heaviness, sharp Consistency: constant Improves With: rest Worsens With: exertion Context: recent illness re: nausea, vomting. denies: diaphoresis, dyspnea, sense of impending doom Other Symptoms: denies: cough, fever, syncope, rash, acid taste in mouth, leg swelling, palpitations, burping Treatments Prior to Arrival: none Aspirin use within the Past 7 Days: (1) Yes - Related Data On Oral Contraceptives: No Previous Rx's Medication Instructions Recorded Last Taken Type ALPRAZolam [Xanax TAB] 0.25 mg PO TID PRN #15 tab 12/10/17 Unknown Rx Albuterol Sulfate [Albuterol 0.63% 0.63 mg IH TID PRN #180 vial.neb 12/10/17 Unknown Rx NEBS] AtorvaSTATin [Lipitor] 10 mg PO QHS #30 tablet 12/10/17 Unknown Rx Docusate Sodium [Colace CAP] 100 mg PO BID #60 capsule 12/10/17 Unknown Rx Ipratropium/Albuter (Nf) 2 puff IH QID #1 inha 12/10/17 Unknown Rx [Combivent Inhaler] Meclizine [Antivert] 25 mg PO TID PRN #90 tablet 12/10/17 Unknown Rx Metoprolol [Lopressor TAB] 25 mg PO BID #60 tablet 12/10/17 Unknown Rx Ranitidine HCl [Zantac 150 MG TAB] 150 mg PO BID #60 tablet 12/10/17 Unknown Rx Promethazine [Phenergan TAB] 25 mg PO Q6HR PRN #20 tab 02/21/18 Unknown Rx Furosemide [Lasix TAB] 20 mg PO QDAY #30 tablet 04/28/18 Unknown Rx Allergies Allergy/AdvReac Type Severity Reaction Status Date / Time acetaminophen [From Percocet] Allergy Swelling Verified 12/23/17 18:04 metoclopramide HCl Allergy Swelling Verified 12/27/15 13:07 [From Reglan] morphine Allergy Itching Verified 12/27/15 13:07 nitroglycerin Allergy Hives Verified 04/26/18 10:59 ondansetron HCl [From Zofran] Allergy Swelling Verified 12/27/15 13:07 oxycodone [From Percocet] Allergy Swelling Verified 12/23/17 18:04 Penicillins Allergy Swelling Verified 12/27/15 13:07 prochlorperazine edisylate Allergy Swelling Verified 12/27/15 13:07 [From Compazine] prochlorperazine maleate Allergy Swelling Verified 12/27/15 13:07 [From Compazine] Sulfa (Sulfonamide Allergy Swelling Verified 12/27/15 13:07 Antibiotics) tramadol Allergy Swelling Verified 12/27/15 13:07 Heart Score - HEART Score History: Highly suspicious EKG: Non-specific Age: 45-65 Risk factors: > 3 risk factors or hx of atherosclerotic disease Troponin: < normal limit HEART Score: 6 ED Review of Systems ROS: Stated complaint: CP,VOMITING Other details as noted in HPI Constitutional: denies: chills, fever Eyes: denies: eye pain, eye discharge, vision change ENT: denies: ear pain, throat pain Respiratory: denies: cough, shortness of breath, wheezing Cardiovascular: chest pain. denies: palpitations Endocrine: no symptoms reported Gastrointestinal: abdominal pain, nausea, vomiting, diarrhea Genitourinary: denies: urgency, dysuria, discharge Musculoskeletal: denies: back pain, joint swelling, arthralgia Skin: denies: rash, lesions Neurological: denies: headache, weakness, paresthesias Psychiatric: denies: anxiety, depression Hematological/Lymphatic: denies: easy bleeding, easy bruising ED Past Medical Hx - Past Medical History Previous Medical History?: Yes Hx Hypertension: Yes Hx CVA: Yes (TIAs) Hx Congestive Heart Failure: Yes Hx Diabetes: Yes Hx Arthritis: Yes (spine) Hx Headaches / Migraines: Yes Hx Psychiatric Treatment: Yes (anxiety) Hx Asthma: Yes Hx COPD: Yes Additional medical history: vertigo, Obesity. lupus, C.diff. sarcoidosis. Subarachnoid hemorrhage. DDD WITH L5 BULGING DISK - Surgical History Past Surgical History?: Yes Additional Surgical History: rt lung surgery BIOPSY 2004. x 5, Uterine Ablation - Family History Family history: no significant - Social History Smoking Status: Never Smoker Substance Use Type: None - Medications Home Medications: Home Medications Medication Instructions Recorded Confirmed Last Taken Type ALPRAZolam [Xanax TAB] 0.25 mg PO TID PRN #15 tab 12/10/17 04/28/18 Unknown Rx Albuterol Sulfate [Albuterol 0.63% 0.63 mg IH TID PRN #180 vial.neb 12/10/17 04/28/18 Unknown Rx NEBS] AtorvaSTATin [Lipitor] 10 mg PO QHS #30 tablet 12/10/17 04/28/18 Unknown Rx Docusate Sodium [Colace CAP] 100 mg PO BID #60 capsule 12/10/17 04/28/18 Unknown Rx Ipratropium/Albuter (Nf) 2 puff IH QID #1 inha 12/10/17 04/28/18 Unknown Rx [Combivent Inhaler] Meclizine [Antivert] 25 mg PO TID PRN #90 tablet 12/10/17 04/28/18 Unknown Rx Metoprolol [Lopressor TAB] 25 mg PO BID #60 tablet 12/10/17 04/28/18 Unknown Rx Ranitidine HCl [Zantac 150 MG TAB] 150 mg PO BID #60 tablet 12/10/17 04/28/18 Unknown Rx Promethazine [Phenergan TAB] 25 mg PO Q6HR PRN #20 tab 02/21/18 04/28/18 Unknown Rx Furosemide [Lasix TAB] 20 mg PO QDAY #30 tablet 04/28/18 Unknown Rx ED Physical Exam - General Limitations: No Limitations General appearance: alert, in no apparent distress - Head Head exam: Present: atraumatic, normocephalic - Eye Eye exam: Present: normal appearance - ENT ENT exam: Present: mucous membranes moist - Neck Neck exam: Present: normal inspection - Respiratory Respiratory exam: Present: normal lung sounds bilaterally. Absent: respiratory distress - Cardiovascular Cardiovascular Exam: Present: regular rate, normal rhythm. Absent: systolic murmur, diastolic murmur, rubs, gallop - GI/Abdominal GI/Abdominal exam: Present: soft, tenderness (epigastric tenderness), normal bowel sounds - Extremities Exam Extremities exam: Present: normal inspection - Back Exam Back exam: Present: normal inspection - Neurological Exam Neurological exam: Present: alert, oriented X3 - Psychiatric Psychiatric exam: Present: normal affect, normal mood - Skin Skin exam: Present: warm, dry, intact, normal color. Absent: rash ED Course Vital Signs 12/26/18 12/27/18 12/27/18 20:45 00:02 00:16 Temperature 98.7 F Pulse Rate 85 93 H 75 Respiratory 18 13 Rate Blood Pressure 128/60 146/74 O2 Sat by Pulse 100 100 Oximetry 12/27/18 12/27/18 12/27/18 00:30 00:46 01:00 Temperature Pulse Rate 72 74 72 Respiratory 10 L 11 L 13 Rate Blood Pressure 146/74 146/74 146/74 O2 Sat by Pulse 97 100 100 Oximetry 12/27/18 12/27/18 12/27/18 01:16 01:30 01:56 Temperature Pulse Rate 87 76 79 Respiratory 11 L 15 18 Rate Blood Pressure 146/74 146/74 146/74 O2 Sat by Pulse 100 100 100 Oximetry 12/27/18 12/27/18 02:00 02:16 Temperature Pulse Rate 77 89 Respiratory 14 18 Rate Blood Pressure 146/74 146/75 O2 Sat by Pulse 99 100 Oximetry - Reevaluation(s) Reevaluation #1: Initial evaluation done. Patient states she is able to take morphine as long as she gets Benadryl. Patient given aspirin and morphine and Benadryl. 12/27/18 00:10 Discussed all results with patient. 12/27/18 01:01 Discussed all results with patient. Patient agrees plan of care and admission. Patient to be admitted to the hospitalist service for further evaluation treatment. 12/27/18 02:31 She needs an IV. Patient refused for me to put an EJ in. 12/27/18 03:00 - Consultations Consultation #1: Hospitals consultation for admission. Hospitalist to admit patient and assume care of patient. 12/27/18 02:30 LAURO score - Lauro Score Age > 65: (0) No Aspirin use within the Past 7 Days: (1) Yes 3 or more CAD Risk Factors: (1) Yes 2 or more Angina events in past 24 hrs: (1) Yes Known CAD with more than 50% Stenosis: (0) No Elevated Cardiac Markers: (0) No ST Deviation Greater than 0.5mm: (0) No LAURO Score: 3 ED Medical Decision Making - Lab Data Result diagrams: 12/26/18 20:51 12/26/18 20:51 - EKG Data -: EKG Interpreted by Me EKG shows normal: sinus rhythm, axis, intervals, QRS complexes, ST-T waves Rate: normal - Radiology Data Radiology results: report reviewed, image reviewed interpreted by me: Chest x-ray negative. CT negative for acute findings. - Medical Decision Making Patient is a 58-year-old female that presents emergency room with complaints of chest pain and abdominal pain, nausea and vomiting and diarrhea. Patient's abdominal pain nausea vomiting diarrhea most likely secondary to a viral gastroenteritis. Patient to be admitted to the hospitalist service to rule out ACS. Initial cardiac workup negative. Labs unremarkable Except for renal insufficiency. - Differential Diagnosis acs. cp. gastroenteritis. n/v/d Critical Care Time: Yes Critical care attestation.: If time is entered above; I have spent that time in minutes in the direct care of this critically ill patient, excluding procedure time. Critical Care Time: 35 minutes. ED Disposition Clinical Impression: Epigastric abdominal pain, Gastroenteritis Chest pain Qualifiers: Chest pain type: unspecified Qualified Code(s): R07.9 - Chest pain, unspecified Nausea & vomiting Qualifiers: Vomiting type: unspecified Vomiting Intractability: non-intractable Qualified Code(s): R11.2 - Nausea with vomiting, unspecified Diarrhea Qualifiers: Diarrhea type: unspecified type Qualified Code(s): R19.7 - Diarrhea, unspe cified Disposition: 09 OP ADMIT IP TO THIS HOSP Is pt being admited?: Yes Does the pt Need Aspirin: No Condition: Critical Time of Disposition: 02:34
--- NOTE | 2018-12-27 02:21 | Cat Scan Report ---
FINAL REPORT EXAM: CT ABDOMEN PELVIS WO CON HISTORY: n/v abd pain. TECHNIQUE: Helical CT scan through the abdomen and pelvis without contrast. Images are reconstructed in the sagittal and coronal planes. PRIORS: 12/27/2015 FINDINGS: Solid organ and bowel evaluation is limited without intravenous contrast. Bowel evaluation is limited without oral contrast. The lung bases are clear. The liver, gallbladder, pancreas, spleen and adrenal glands appear normal. The kidneys appear grossly normal. The pelvic organs appear grossly normal. The stomach appears grossly within normal limits. There are no abnormally dilated loops of bowel or acute inflammatory changes. A normal-appearing appe ndix is identified. The abdominal aorta has a normal diameter. There is a old healed fracture of right posterior 6th rib. There is advanced degenerative disc diseas e at L5 S1 with severe loss of disc height and vacuum disc. There is advanced degenerative facet dise ase at L4-5 with 5 mm anterolisthesis of L4 on L5. IMPRESSION: No acute findings in the abdomen/pelvis
[2018-12-27] MEDS ORDERED: MORPHINE ONE (02:34)
[2018-12-27] MEDS ORDERED: BENADRYL ONE ×2 (02:34→17:12)
[2018-12-27] MEDS ORDERED: ASPIRIN ONE (02:38)
--- NOTE | 2018-12-27 02:43 | XRay Report ---
FINAL REPORT PROCEDURE: XR CHEST 1V AP TECHNIQUE: Chest radiograph anteroposterior view. CPT 94570 HISTORY: cp COMPARISON: No prior studies are available for comparison. FINDINGS: Heart: Normal. Mediastinum/Vessels: Normal. Lungs/Pleural space: Lungs are expanded. There are no infiltrates, effusions or pneumothoraces.. Bony thorax: No acute osseous abnormality. Life support devices: None. IMPRESSION: No acute cardiopulmonary abnormality.
[2018-12-27] MEDS ORDERED: SODIUM CHLORIDE FLUSH SYRINGE 10 ML IV PRN ×2 (06:21)
[2018-12-27] MEDS ORDERED: ZOFRAN IV PRN (06:21)
[2018-12-27] MEDS ORDERED: NITROSTAT SL PRN (06:21)
--- NOTE | 2018-12-27 06:21 | History and Physical Report ---
History of Present Illness Date of examination: 12/27/18 Date of admission: 12/27/2018 Chief complaint: Chest pain History of present illness: Patient is a 58-year-old female with past medical history of CAD/KS, CHF, CVA, DM type II, hypertension, hypercholesterolemia, morbid obesity who presents to the ER with complaints of chest pain, nausea and vomiting x 1 day. Patient states that the chest pain occurred in the middle of the night, she also was having nausea and vomiting. Patient reports that she has been taking Lasix which caused her to urinate often, she has been unable to control her urine and her feces, which upset her sister's who decided to take her to the ER for evaluation. Patient denies any shortness of breath, denies any recent illn ess, denied coughs, denies congestions, denies palpitation, denies lightheadedness or dizziness. In the ER her EKG was negative, her cardiac enzymes were negative, a CT scan of the abdomen and pelvis was negative, chest x-ray was negative, patient was admitted for further evaluation of this chest p ain. Past History Past Medical History: CAD, diabetes, hypertension, hyperlipidemia, stroke Past Surgical History: No surgical history Social history: no significant social history Family history: no significant family history Medications and Allergies Allergies Allergy/AdvReac Type Severity Reaction Status Date / Time acetaminophen [From Percocet] Allergy Swelling Verified 12/23/17 18:04 metoclopramide HCl Allergy Swelling Verified 12/27/15 13:07 [From Reglan] morphine Allergy Itching Verified 12/27/15 13:07 nitroglycerin Allergy Hives Verified 04/26/18 10:59 ondansetron HCl [From Zofran] Allergy Swelling Verified 12/27/15 13:07 oxycodone [From Percocet] Allergy Swelling Verified 12/23/17 18:04 Penicillins Allergy Swelling Verified 12/27/15 13:07 prochlorperazine edisylate Allergy Swelling Verified 12/27/15 13:07 [From Compazine] prochlorperazine maleate Allergy Swelling Verified 12/27/15 13:07 [From Compazine] Sulfa (Sulfonamide Allergy Swelling Verified 12/27/15 13:07 Antibiotics) tramadol Allergy Swelling Verified 12/27/15 13:07 Home Medications Medication Instructions Recorded Confirmed Last Taken Type ALPRAZolam [Xanax TAB] 0.25 mg PO TID PRN #15 tab 12/10/17 04/28/18 Unknown Rx Albuterol Sulfate [Albuterol 0.63% 0.63 mg IH TID PRN #180 vial.neb 12/10/17 04/28/18 Unknown Rx NEBS] AtorvaSTATin [Lipitor] 10 mg PO QHS #30 tablet 12/10/17 04/28/18 Unknown Rx Docusate Sodium [Colace CAP] 100 mg PO BID #60 capsule 12/10/17 04/28/18 Unknown Rx Ipratropium/Albuter (Nf) 2 puff IH QID #1 inha 12/10/17 04/28/18 Unknown Rx [Combivent Inhaler] Meclizine [Antivert] 25 mg PO TID PRN #90 tablet 12/10/17 04/28/18 Unknown Rx Metoprolol [Lopressor TAB] 25 mg PO BID #60 tablet 12/10/17 04/28/18 Unknown Rx Ranitidine HCl [Zantac 150 MG TAB] 150 mg PO BID #60 tablet 12/10/17 04/28/18 Unknown Rx Promethazine [Phenergan TAB] 25 mg PO Q6HR PRN #20 tab 02/21/18 04/28/18 Unknown Rx Furosemide [Lasix TAB] 20 mg PO QDAY #30 tablet 04/28/18 Unknown Rx Review of Systems Cardiovascular: chest pain Gastrointestinal: nausea Exam - Constitutional Vitals: Temp Pulse Resp BP Pulse Ox 98.7 F 85 12 146/75 99 12/26/18 20:45 12/27/18 03:16 12/27/18 03:16 12/27/18 04:16 12/27/18 04:16 General appearance: Present: no acute distress - EENT Eyes: Present: PERRL, EOM intact ENT: hearing intact - Neck Neck: Present: supple, normal ROM - Respiratory Respiratory effort: normal - Cardiovascular Rhythm: regular - Extremities Extremities: no ischemia, No edema Peripheral Pulses: within normal limits - Abdominal General gastrointestinal: Present: non-tender, non-distended Female genitourinary: Present: deferred - Rectal Rectal Exam: deferred - Integumentary Integumentary: Present: warm, dry - Musculoskeletal Musculoskeletal: strength equal bilaterally - Psychiatric Psychiatric: appropriate mood/affect, cooperative - Neurologic Neurologic: moves all extremities Results - Labs CBC & Chem 7: 12/26/18 20:51 12/27/18 06:39 Labs: Laboratory Last Values WBC 6.7 K/mm3 (4.5-11.0) 12/26/18 20:51 RBC 3.96 M/mm3 (3.65-5.03) 12/26/18 20:51 Hgb 11.4 gm/dl (10.1-14.3) 12/26/18 20:51 Hct 35.5 % (30.3-42.9) 12/26/18 20:51 MCV 90 fl (79-97) 12/26/18 20:51 MCH 29 pg (28-32) 12/26/18 20:51 MCHC 32 % (30-34) 12/26/18 20:51 RDW 14.4 % (13.2-15.2) 12/26/18 20:51 Plt Count 246 K/mm3 (140-440) 12/26/18 20:51 Lymph % (Auto) 39.0 % (13.4-35.0) H 12/26/18 20:51 [place] % (Auto) 11.9 % (0.0-7.3) H 12/26/18 20:51 Eos % (Auto) 2.5 % (0.0-4.3) 12/26/18 20:51 Baso % (Auto) 0.9 % (0.0-1.8) 12/26/18 20:51 Lymph # 2.6 K/mm3 (1.2-5.4) 12/26/18 20:51 [place] # 0.8 K/mm3 (0.0-0.8) 12/26/18 20:51 Eos # 0.2 K/mm3 (0.0-0.4) 12/26/18 20:51 Baso # 0.1 K/mm3 (0.0-0.1) 12/26/18 20:51 Seg Neutrophils % 45.7 % (40.0-70.0) 12/26/18 20:51 Seg Neutrophils # 3.1 K/mm3 (1.8-7.7) 12/26/18 20:51 Sodium 145 mmol/L (137-145) 12/26/18 20:51 Potassium 4.0 mmol/L (3.6-5.0) 12/26/18 20:51 Chloride 105.5 mmol/L (98-107) 12/26/18 20:51 Carbon Dioxide 25 mmol/L (22-30) 12/26/18 20:51 Anion Gap 19 mmol/L 12/26/18 20:51 BUN 25 mg/dL (7-17) H 12/26/18 20:51 Creatinine 1.3 mg/dL (0.7-1.2) H 12/26/18 20:51 Estimated GFR 51 ml/min 12/26/18 20:51 BUN/Creatinine Ratio 19 % 12/26/18 20:51 Glucose 79 mg/dL (65-100) 12/26/18 20:51 Calcium 9.8 mg/dL (8.4-10.2) 12/26/18 20:51 Troponin T < 0.010 ng/mL (0.00-0.029) 12/26/18 23:03 Assessment and Plan Assessment and plan: 1. Chest pain rule out KS 2. CAD/s/p [place] 3. CHF/cardiomyopathy (EF unknown) 4. CVA 5. DM type II 6. Hypertension 7. Hyperlipidemia 8. Morbid obesity Plan: Patient is admitted for rule out KS, and for CHF Continue cardiac enzymes every 6 hours 2 Continue cardiac monitoring Morphine when necessary for chest pain Resume home meds Consult cardiology for evaluation Continue Lasix Further plan per cardiology evaluation Plan discussed with patient's voiced understanding Patient's condition and plan of care discussed with Advance Directives: Yes VTE prophylaxis?: Chemical Plan of care discussed with patient/family: Yes
[2018-12-27 07:16] LABS: BUN/Creatinine Ratio 27; Blood Urea Nitrogen 24 mg/dL (7-17); Calcium 9.4 mg/dL (8.4-10.2); Hemolysis Index 55
[2018-12-27 07:32] LABS: Basophils # (Auto) 0.1 K/mm3 (0.0-0.1); Eosinophils # (Auto) 0.2 K/mm3 (0.0-0.4); Eosinophils % (Auto) 3.1 % (0.0-4.3); Hematocrit 32.4 % (30.3-42.9); Hemoglobin 10.5 gm/dl (10.1-14.3); Lymphocytes # (Auto) 2.7 K/mm3 (1.2-5.4); Lymphocytes % (Auto) 41.2 % (13.4-35.0); Mean Corpuscular HGB Conc 33 % (30-34); Mean Corpuscular Volume 89 fl (79-97); Monocytes # (Auto) 0.9 K/mm3 (0.0-0.8); Monocytes % (Auto) 14.2 % (0.0-7.3); Red Blood Count 3.66 M/mm3 (3.65-5.03); Red Cell Distribution Width 14.4 % (13.2-15.2)
[2018-12-27 08:08] LABS: Platelet Count 215 K/mm3 (140-440)
--- NOTE | 2018-12-27 13:37 | Consultation ---
History of Present Illness Consult date: 12/27/18 Consult reason: chest pain History of present illness: 58-year-old woman with a history of obesity, hypertension who presented to the hospital with 2 days of abdominal discomfort and repeated vomiting, culminating in chest pain that occurred at the end of 2 days of bed vomiting. There are no associated symptoms, and the chest pain was nonexertional. Cardiac consultation was requested for chest pain and assessment. At this time, the patient is on telemetry floor, looks and feels comfortable except she continues to complain of abdominal discomfort and nausea. ECG is normal sinus rhythm, normal ECG. Chest x-ray was reported normal. Patient has had prior cardiac workup including an echocardiogram several months ago that reported left ventricular ejection fraction 50-55%, and a thallium stress test about a year ago that was negative. In addition to the atypical chest pain, there is some reference in the records to "CHF", but patient has no symptoms, no clinical or radiologic evidence of he art failure or fluid overload. Past History Past Medical History: diabetes, hypertension, hyperlipidemia Past Surgical History: No surgical history Social history: no significant social history Family history: no significant family history Medications and Allergies Allergies Allergy/AdvReac Type Severity Reaction Status Date / Time acetaminophen [From Percocet] Allergy Swelling Verified 12/23/17 18:04 metoclopramide HCl Allergy Swelling Verified 12/27/15 13:07 [From Reglan] morphine Allergy Itching Verified 12/27/15 13:07 nitroglycerin Allergy Hives Verified 04/26/18 10:59 ondansetron HCl [From Zofran] Allergy Swelling Verified 12/27/15 13:07 oxycodone [From Percocet] Allergy Swelling Verified 12/23/17 18:04 Penicillins Allergy Swelling Verified 12/27/15 13:07 prochlorperazine edisylate Allergy Swelling Verified 12/27/15 13:07 [From Compazine] prochlorperazine maleate Allergy Swelling Verified 12/27/15 13:07 [From Compazine] Sulfa (Sulfonamide Allergy Swelling Verified 12/27/15 13:07 Antibiotics) tramadol Allergy Swelling Verified 12/27/15 13:07 Home Medications Medication Instructions Recorded Confirmed Last Taken Type ALPRAZolam [Xanax TAB] 0.25 mg PO TID PRN #15 tab 12/10/17 04/28/18 Unknown Rx Albuterol Sulfate [Albuterol 0.63% 0.63 mg IH TID PRN #180 vial.neb 12/10/17 04/28/18 Unknown Rx NEBS] AtorvaSTATin [Lipitor] 10 mg PO QHS #30 tablet 12/10/17 04/28/18 Unknown Rx Docusate Sodium [Colace CAP] 100 mg PO BID #60 capsule 12/10/17 04/28/18 Unknown Rx Ipratropium/Albuter (Nf) 2 puff IH QID #1 inha 12/10/17 04/28/18 Unknown Rx [Combivent Inhaler] Meclizine [Antivert] 25 mg PO TID PRN #90 tablet 12/10/17 04/28/18 Unknown Rx Metoprolol [Lopressor TAB] 25 mg PO BID #60 tablet 12/10/17 04/28/18 Unknown Rx Ranitidine HCl [Zantac 150 MG TAB] 150 mg PO BID #60 tablet 12/10/17 04/28/18 Unknown Rx Promethazine [Phenergan TAB] 25 mg PO Q6HR PRN #20 tab 02/21/18 04/28/18 Unknown Rx Furosemide [Lasix TAB] 20 mg PO QDAY #30 tablet 04/28/18 Unknown Rx Active Meds: Active Medications Acetaminophen (Tylenol) 650 mg PO Q4H PRN PRN Reason: Pain MILD(1-3)/Fever >100.5/ANDINO Aspirin (Ecotrin) 325 mg PO QDAY EPI Furosemide (Lasix) 20 mg PO 0600,1800 EPI Nitroglycerin (Nitrostat) 0.4 mg SL Q5M PRN PRN Reason: Chest Pain Ondansetron HCl (Zofran) 4 mg IV Q8H PRN PRN Reason: Nausea And Vomiting Sodium Chloride (Sodium Chloride Flush Syringe 10 Ml) 10 ml IV BID EPI Sodium Chloride (Sodium Chloride Flush Syringe 10 Ml) 10 ml IV PRN PRN PRN Reason: LINE FLUSH Sodium Chloride (Sodium Chloride Flush Syringe 10 Ml) 10 ml IV PRN PRN PRN Reason: LINE FLUSH Review of Systems Cardiovascular: chest pain, no orthopnea, no palpitations, no rapid/irregular heart beat, no edema, no syncope, no lightheadedness, no shortness of breath Gastrointestinal: abdominal pain, nausea, vomiting Physical Examination Vital Signs Temp Pulse Resp BP Pulse Ox 98.7 F 85 18 128/60 100 12/26/18 20:45 12/26/18 20:45 12/26/18 20:45 12/26/18 20:45 12/26/18 20:45 General appearance: no acute distress, obese HEENT: Positive: PERRL Neck: Positive: neck supple Cardiac: Positive: Reg Rate and Rhythm Lungs: Positive: Decreased Breath Sounds Neuro: Positive: Grossly Intact Abdomen: Positive: Soft Female genitourinary: deferred Skin: Positive: Clear Extremities: Absent: edema Results 12/27/18 06:39 12/27/18 06:39 CBC 12/26/18 12/27/18 Range/Units 20:51 06:39 WBC 6.7 6.5 (4.5-11.0) K/mm3 RBC 3.96 3.66 (3.65-5.03) M/mm3 Hgb 11.4 10.5 (10.1-14.3) gm/dl Hct 35.5 32.4 (30.3-42.9) % Plt Count 246 215 (140-440) K/mm3 Lymph # 2.6 2.7 (1.2-5.4) K/mm3 [place] # 0.8 0.9 H (0.0-0.8) K/mm3 Eos # 0.2 0.2 (0.0-0.4) K/mm3 Baso # 0.1 0.1 (0.0-0.1) K/mm3 Comprehensive Metabolic Panel 12/26/18 12/27/18 Range/Units 20:51 06:39 Sodium 145 138 (137-145) mmol/L Potassium 4.0 3.6 (3.6-5.0) mmol/L Chloride 105.5 106.9 (98-107) mmol/L Carbon Dioxide 25 20 L (22-30) mmol/L BUN 25 H 24 H (7-17) mg/dL Creatinine 1.3 H 0.9 (0.7-1.2) mg/dL Glucose 79 106 H (65-100) mg/dL Calcium 9.8 9.4 (8.4-10.2) mg/dL EKG interpretations - Telemetry EKG Rhythm: Sinus Rhythm Assessment and Plan - Patient Problems (1) Chest pain Current Visit: Yes Status: Acute Qualifiers: Chest pain type: unspecified Qualified Code(s): R07.9 - Chest pain, unspecified Plan to address problem: The patient's chest pain is atypical, and its presentation after 2 days of repeated vomiting likely suggests gastroesophageal reflux. We will recommend treatment with a proton pump inhibitor, and focused attention on work up of the patient's abdominal pain and nausea.
[2018-12-27] MEDS: PERCOCET 5/325 PO PRN (17:11)
[2018-12-27] MEDS: SODIUM CHLORIDE FLUSH SYRINGE 10 ML IV SCH (17:12)
[2018-12-27] MEDS: LASIX PO SCH (17:12)
[2018-12-28] MEDS: SODIUM CHLORIDE FLUSH SYRINGE 10 ML IV SCH ×3 (00:54→22:57)
[2018-12-28] MEDS ORDERED: RESTORIL PO PRN (02:28)
[2018-12-28] MEDS: BENADRYL IV PRN ×3 (03:01→16:34)
[2018-12-28] MEDS: PERCOCET 5/325 PO PRN ×2 (03:02→10:08)
[2018-12-28] MEDS: LASIX PO SCH ×2 (06:02→18:25)
--- NOTE | 2018-12-28 10:30 | Progress Note ---
Addendum entered and electronically signed by AGUSTIN DEL ANGEL MD 12/28/18 14:46: Atypical chest pain, following a protracted bout of vomiting, appears gastroesop hageal reflux. Original Note: Assessment and Plan Abdominal pain with N/V Chest pain is atypical Hypertension Diabetes Obesity 03/2018 echocardiogram reports a normal LVEF 50-55%. 08/2017 stress thallium test was negative for ischemia. Conservative cardiac management. Subjective Date of service: 12/28/18 Interval history: Patient complains of nausea without vomiting. She denies chest pain and shortness of breath. Objective Vital Signs Temp Pulse Resp BP Pulse Ox 12/28/18 07:41 98.4 F 90 20 112/72 97 12/28/18 04:09 97.9 F 91 H 18 102/60 95 12/28/18 03:02 18 12/27/18 23:10 98.0 F 89 18 104/44 98 12/27/18 21:50 20 12/27/18 20:03 98.3 F 103 H 18 144/79 96 12/27/18 17:53 96 H 12/27/18 15:49 98.4 F 85 20 103/61 98 - Physical Examination General: No Apparent Distress HEENT: Positive: PERRL Neck: Positive: trachea midline Cardiac: Positive: Reg Rate and Rhythm Lungs: Positive: Decreased Breath Sounds Neuro: Positive: Grossly Intact Abdomen: Positive: Soft Extremities: Absent: edema
[2018-12-28] MEDS: ECOTRIN PO SCH (12:54)
--- NOTE | 2018-12-28 15:57 | Discharge Summary ---
Providers - Providers Date of Admission: 12/27/18 09:14 Date of discharge: 12/28/18 Attending physician: SAQIB ARIZA 12/27/18 Consult to Cardiac Rehabilitation [CONS] Routine Reason For Exam: Phase I 12/27/18 06:21 Consult to Cardiology [CONS] Routine Consulting Provider: PAYAM GAMINO Reason For Exam: chest pain, CHF Primary care physician: SAQIB ARIZA Hospitalization Condition: Critical Hospital course: Discharge diagnosis: Atypical chest pain, following a protracted bout of vomiting, appears gastroesophageal reflux. - 03/2018 echocardiogram reports a normal LVEF 50-55%. - 08/2017 stress thallium test was negative for ischemia. Abdominal pain with N/V, likely viral gastroenteritis Hypertension Diabetes Obesity Disposition: - TO HOME OR SELFCARE Time spent for discharge: 34 minutes Core Measure Documentation - Palliative Care Palliative Care/ Comfort Measures: Not Applicable - Core Measures Any of the following diagnoses?: none Exam - Constitutional Vitals: Temp Pulse Resp BP Pulse Ox 98.0 F 79 20 125/71 100 12/28/18 10:43 12/28/18 10:43 12/28/18 10:43 12/28/18 10:43 12/28/18 10:43 General appearance: Present: no acute distress, well-nourished - EENT Eyes: Present: PERRL ENT: hearing intact, clear oral mucosa - Neck Neck: Present: supple, normal ROM - Respiratory Respiratory effort: normal Respiratory: bilateral: CTA - Cardiovascular Heart Sounds: Present: S1 & S2. Absent: rub, click - Extremities Extremities: pulses symmetrical, No edema Peripheral Pulses: within normal limits - Abdominal General gastrointestinal: Present: soft, non-tender, non-distended, normal bowel sounds - Integumentary Integumentary: Present: clear, warm, dry - Musculoskeletal Musculoskeletal: gait normal, strength equal bilaterally - Psychiatric Psychiatric: appropriate mood/affect, intact judgment & insight - Neurologic Neurologic: CNII-XII intact, moves all extremities Plan Activity: advance as tolerated Weight Bearing Status: Weight Bear as Tolerated Diet: low fat, low salt Follow up with: LUNA SULLIVAN MD [Staff Physician] - 3-5 Days Prescriptions: Pantoprazole [Protonix] 40 mg PO QDAY #30 tablet
[2018-12-28] MEDS: TYLENOL PO PRN (18:19)
[2018-12-28] MEDS ORDERED: NON-FORMULARY (Albuterol Sulfate [Albuterol 0.63% Nebs] 0.63 MG) IH PRN (19:04)
[2018-12-28] MEDS ORDERED: XANAX PO PRN (19:04)
--- NOTE | 2018-12-28 19:07 | Progress Note ---
Assessment and Plan Suicidal thought ?? - refused to go home stating she will feel suicidal if she was discharged (initially stated she has no ride), but feels ok as long as she stays in the hospital - suspect fictitious?? STAES SHE HAS NO PLAN FOR COMMITTING SUICIDE BUT STESSORS AT HOME WILL MAKE HER FEEL SUICIDAL - consulted psych, no 1013 Atypical chest pain, following a protracted bout of vomiting, appears gastroesophageal reflux. - 03/2018 echocardiogram reports a normal LVEF 50-55%. - 08/2017 stress thallium test was negative for ischemia. 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 So her d/c cancelled. She has no plan for any suicidal attempt now or as long as she is in the hospital she says denies any chest pain Objective - Constitutional Vitals: Vital Signs - 12hr 12/28/18 12/28/18 12/28/18 07:41 10:43 15:44 Temperature 98.4 F 98.0 F 98.6 F Pulse Rate 90 79 80 Respiratory 20 20 20 Rate Blood Pressure 112/72 125/71 93/52 O2 Sat by Pulse 97 100 97 Oximetry General appearance: Present: no acute distress, obese - EENT Eyes: PERRL, EOM intact ENT: hearing intact, clear oral mucosa Ears: bilateral: normal - Neck Neck: supple, normal ROM - Respiratory Respiratory effort: normal Respiratory: bilateral: CTA - Cardiovascular Rhythm: regular Heart Sounds: Present: S1 & S2. Absent: gallop, rub Extremities: pulses intact, No edema, normal color, Full ROM - Gastrointestinal General gastrointestinal: Present: soft, non-tender, non-distended, normal bowel sounds - Integumentary Integumentary: clear, warm, dry - Musculoskeletal Musculoskeletal: 1, strength equal bilaterally - Neurologic Neurologic: moves all extremities - Psychiatric Psychiatric: memory intact, appropriate mood/affect, intact judgment & insight - Labs CBC & Chem 7: 12/27/18 06:39 12/27/18 06:39 Labs: Abnormal lab results 12/27/18 Range/Units 21:31 POC Glucose 109 H (70-105)
[2018-12-28] MEDS ORDERED: PROVENTIL IH PRN (19:08)
[2018-12-28] MEDS ORDERED: NON-FORMULARY (Ipratropium/Albuter (Nf) 2 PUFF) IH SCH (22:00)
[2018-12-28] MEDS: COLACE PO SCH (22:57)
[2018-12-29] MEDS: TYLENOL PO PRN ×2 (02:03→14:39)
[2018-12-29] MEDS: LASIX PO SCH (06:58)
[2018-12-29] MEDS: DUONEB *Not for PRN Use IH SCH ×3 (08:33→14:29)
[2018-12-29] MEDS: ECOTRIN PO SCH (09:42)
[2018-12-29] MEDS: COLACE PO SCH (09:42)
[2018-12-29] MEDS: SODIUM CHLORIDE FLUSH SYRINGE 10 ML IV SCH (09:43)
--- NOTE | 2018-12-29 12:54 | Progress Note ---
Assessment and Plan - Patient Problems (1) Chest pain Current Visit: Yes Status: Acute Qualifiers: Chest pain type: unspecified Qualified Code(s): R07.9 - Chest pain, unspecified Plan to address problem: The patient's chest pain is atypical, and its presentation after 2 days of repeated vomiting likely suggests gastroesophageal reflux. We will recommend treatment with a proton pump inhibitor, and focused attention on work up of the patient's abdominal pain and nausea. Subjective Date of service: 12/29/18 Interval history: Patient is comfortable, no cardiac complaints. Objective Vital Signs Temp Pulse Pulse Pulse Resp Resp Resp 12/29/18 09:05 87 20 12/29/18 09:04 98.1 F 12/29/18 08:35 85 91 H 16 18 12/29/18 05:22 98.4 F 86 20 12/29/18 00:07 97.9 F 83 20 12/28/18 20:12 98.2 F 85 20 12/28/18 20:00 87 12/28/18 15:44 98.6 F 80 20 BP Pulse Ox 12/29/18 09:05 127/53 100 12/29/18 09:04 12/29/18 08:35 12/29/18 05:22 117/69 96 12/29/18 00:07 115/65 100 12/28/18 20:12 121/58 99 12/28/18 20:00 12/28/18 15:44 93/52 97 - Physical Examination General: No Apparent Distress HEENT: Positive: PERRL Neck: Positive: trachea midline Cardiac: Positive: Reg Rate and Rhythm Lungs: Positive: Decreased Breath Sounds Neuro: Positive: Grossly Intact Abdomen: Positive: Soft Skin: Positive: Clear Extremities: Absent: edema
[2018-12-29 13:08] VITALS: BP 125/77
--- NOTE | 2018-12-29 15:45 | Progress Note ---
Assessment and Plan Suicidal thought ?? - refused to go home stating she will feel suicidal if she was discharged (initially stated she has no ride), but feels ok as long as she stays in the hospital - suspect fictitious?? STAES SHE HAS NO PLAN FOR COMMITTING SUICIDE BUT STESSORS AT HOME WILL MAKE HER FEEL SUICIDAL - consulted psych, no 1013 Atypical chest pain, following a protracted bout of vomiting, appears gastroesophageal reflux. treat with PPI - 03/2018 echocardiogram reports a normal LVEF 50-55%. - 08/2017 stress thallium test was negative for ischemia. Abdominal pain with N/V, likely viral gastroenteritis, resolved tolerating diet Hypertension, cont home meds Diabetes, diet controlled, A1c 6.2 Obesity, given exercise/dietary recommendation Dvt Px, ambulatory Subjective Date of service: 12/29/18 Objective - Exam Narrative Exam: General appearance: Present: no acute distress, obese - EENT Eyes: PERRL, EOM intact ENT: hearing intact, clear oral mucosa Ears: bilateral: normal - Neck Neck: supple, normal ROM - Respiratory Respiratory effort: normal Respiratory: bilateral: CTA - Cardiovascular Rhythm: regular Heart Sounds: Present: S1 & S2. Absent: gallop, rub Extremities: pulses intact, No edema, normal color, Full ROM - Gastrointestinal General gastrointestinal: Present: soft, non-tender, non-distended, normal bowel sounds - Integumentary Integumentary: clear, warm, dry - Musculoskeletal Musculoskeletal: 1, strength equal bilaterally - Neurologic Neurologic: moves all extremities - Psychiatric Psychiatric: memory intact, appropriate mood/affect, intact judgment & insight - Constitutional Vitals: Vital Signs - 12hr 12/29/18 12/29/18 12/29/18 05:22 08:35 09:04 Temperature 98.4 F 98.1 F Pulse Rate 86 Pulse Rate [ 85 Bilateral Throughout] Pulse Rate [ 91 H Throughout] Respiratory 20 Rate Respiratory 16 Rate [Bilateral Throughout] Respiratory 18 Rate [ Throughout] Blood Pressure 117/69 O2 Sat by Pulse 96 Oximetry 12/29/18 12/29/18 12/29/18 09:05 13:07 13:08 Temperature 97.7 F Pulse Rate 87 98 H Pulse Rate [ Bilateral Throughout] Pulse Rate [ Throughout] Respiratory 20 18 Rate Respiratory Rate [Bilateral Throughout] Respiratory Rate [ Throughout] Blood Pressure 127/53 125/77 O2 Sat by Pulse 100 99 Oximetry 12/29/18 14:32 Temperature Pulse Rate Pulse Rate [ 85 Bilateral Throughout] Pulse Rate [ 88 Throughout] Respiratory Rate Respiratory 18 Rate [Bilateral Throughout] Respiratory 18 Rate [ Throughout] Blood Pressure O2 Sat by Pulse Oximetry - Labs CBC & Chem 7: 12/27/18 06:39 12/27/18 06:39 Labs: Abnormal lab results 12/28/18 Range/Units 20:29 Hemoglobin A1c 6.2 H (4-6) %
[2018-12-29] MEDS ORDERED: PROTONIX PO SCH (16:00)
--- NOTE | 2018-12-29 16:41 | Discharge Summary ---
Providers - Providers Date of Admission: 12/27/18 09:14 Date of discharge: 12/29/18 Attending physician: SAQIB ARIZA 12/27/18 Consult to Cardiac Rehabilitation [CONS] Routine Reason For Exam: Phase I 12/27/18 06:21 Consult to Cardiology [CONS] Routine Consulting Provider: PAYAM GAMINO Reason For Exam: chest pain, CHF 12/28/18 19:03 Consult to Mental Health [CONS] Routine Reason For Exam: feels sucidal when at home Place consult to:: mental health Notified:: yes 12/29/18 11:10 Physical Therapy Evaluation and Treat [CONS] Routine Comment: Reason For Exam: placement Primary care physician: SAQIB ARIZA Hospitalization Condition: Critical Pertinent studies: abdomen/pelvis CT CXR Hospital course: 58-year-old woman with a history of obesity, hypertension who presented to the hospital with 2 days of abdominal discomfort and repeated vomiting, culminating in chest pain that occurred at the end of 2 days of bed vomiting. There are no associated symptoms, and the chest pain was nonexertional. Cardiac consultation was requested for chest pain and assessment. ECG is normal sinus rhythm, normal ECG. Chest x-ray was reported normal. Patient has had prior cardiac workup including an echocardiogram several months ago that reported left ventricular ejection fraction 50-55%, and a thallium stress test about a year ago that was negative. CXR and CT abdomen/pelvis was unremarkable. Cardiology recommended medical management. Then she stated that she might feel suicidal if she was discharge, but then later she stated she has no plan for suicide and due to stress she stated something like that but her social issue now has taken care off. She feels safe for discharge and was then discharged home in stable condition at her sister's place. Discahrge diagnosis and management: /Suicidal thought ?? - refused to go home stating she will feel suicidal if she was discharged (initially stated she has no ride), but feels ok as long as she stays in the hospital - suspect fictitious?? STAES SHE HAS NO PLAN FOR COMMITTING SUICIDE BUT STESSORS AT HOME WILL MAKE HER FEEL SUICIDAL - next day she stated She will be Ok at home, and has no major issue going on and denied any suicidal thought /Atypical chest pain, following a protracted bout of vomiting, appears gastroesophageal reflux. treat with PPI - 03/2018 echocardiogram reports a normal LVEF 50-55%. - 08/2017 stress thallium test was negative for ischemia. /Abdominal pain with N/V, likely viral gastroenteritis, resolved tolerating diet /Hypertension, cont home meds /Diabetes, diet controlled, A1c 6.2 /Obesity, given exercise/dietary recommendation /Noah, likley prerenal due to dehydration, resolved - was present on admission /Dvt Px, ambulatory Objective - Exam Narrative Exam: General appearance: Present: no acute distress, obese - EENT Eyes: PERRL, EOM intact ENT: hearing intact, clear oral mucosa Ears: bilateral: normal - Neck Neck: supple, normal ROM - Respiratory Respiratory effort: normal Respiratory: bilateral: CTA - Cardiovascular Rhythm: regular Heart Sounds: Present: S1 & S2. Absent: gallop, rub Extremities: pulses intact, No edema, normal color, Full ROM - Gastrointestinal General gastrointestinal: Present: soft, non-tender, non-distended, normal bowel sounds - Integumentary Integumentary: clear, warm, dry - Musculoskeletal Musculoskeletal: 1, strength equal bilaterally - Neurologic Neurologic: moves all extremities - Psychiatric Psychiatric: memory intact, appropriate mood/affect, intact judgment & insight Disposition: DC-01 TO HOME OR SELFCARE Core Measure Documentation - Palliative Care Palliative Care/ Comfort Measures: Not Applicable - Core Measures Any of the following diagnoses?: history only Exam - Constitutional Vitals: Temp Pulse Resp BP Pulse Ox 97.7 F 85 18 125/77 99 12/29/18 13:08 12/29/18 14:32 12/29/18 14:32 12/29/18 13:07 12/29/18 13:07 Plan Activity: advance as tolerated Weight Bearing Status: Weight Bear as Tolerated Diet: low fat, low salt Follow up with: LUNA SULLIVAN MD [Staff Physician] - 3-5 Days Prescriptions: Dicyclomine [Bentyl] 10 mg PO QID #14 capsule Pantoprazole [Protonix] 40 mg PO QDAY #30 tablet
== END 2018-12-29 17:02 | disposition home or self-care (01) | DRG 683 ==
LOC: ED 20:32 → 4A 12-27 09:14
PROVIDERS: ADMIT Internal Medicine; ATTEND Internal Medicine
DX: N17.9 Acute kidney failure, unspecified (principal); Z68.43 Body mass index [BMI] 50.0-59.9, adult; I42.9 Cardiomyopathy, unspecified; K21.9 Gastro-esophageal reflux disease without esophagitis; E66.01 Morbid (severe) obesity due to excess calories; A08.4 Viral intestinal infection, unspecified; E11.9 Type 2 diabetes mellitus without complications; I25.10 Atherosclerotic heart disease of native coronary artery without angina pectoris; I25.2 Old myocardial infarction; I11.0 Hypertensive heart disease with heart failure; I50.9 Heart failure, unspecified; Z86.73 Personal history of transient ischemic attack (TIA), and cerebral infarction without residual deficits; E78.00 Pure hypercholesterolemia, unspecified; E78.5 Hyperlipidemia, unspecified; Z88.8 Allergy status to other drugs, medicaments and biological substances; Z88.0 Allergy status to penicillin; Z88.2 Allergy status to sulfonamides; M19.90 Unspecified osteoarthritis, unspecified site; J44.9 Chronic obstructive pulmonary disease, unspecified; G43.909 Migraine, unspecified, not intractable, without status migrainosus; F41.9 Anxiety disorder, unspecified; M32.9 Systemic lupus erythematosus, unspecified
CPT/HCPCS: 36415; 71045; 74176; 80048; 82962; 83036; 84484; 85025; 87116; 93005; 93010; 94640; G0378; A9270-GY; J1200; J2270

== ENCOUNTER 2019-05-04 18:01 | Emergency (ER) | payer MEDICAID ==
[2019-05-04 19:20] LABS: Basophils # (Auto) 0.1 K/mm3 (0.0-0.1); Eosinophils # (Auto) 0.1 K/mm3 (0.0-0.4); Eosinophils % (Auto) 1.6 % (0.0-4.3); Hematocrit 34.9 % (30.3-42.9); Hemoglobin 11.6 gm/dl (10.1-14.3); Lymphocytes # (Auto) 2.7 K/mm3 (1.2-5.4); Lymphocytes % (Auto) 35.3 % (13.4-35.0); Mean Corpuscular HGB Conc 33 % (30-34); Mean Corpuscular Volume 87 fl (79-97); Monocytes # (Auto) 0.8 K/mm3 (0.0-0.8); Monocytes % (Auto) 9.8 % (0.0-7.3); Platelet Count 290 K/mm3 (140-440)
--- NOTE | 2019-05-04 19:21 | Emergency Department Report ---
ED General Adult HPI - General Chief complaint: Chest Pain Stated complaint: CHEST AND RT LEG PAIN Time Seen by Provider: 05/04/19 19:13 Source: patient, RN notes reviewed, old records reviewed Mode of arrival: Stretcher Limitations: Physical Limitation - History of Present Illness Initial comments: This is a 58-year-old female. The patient is not known to this provider previously. Her primary care nurse practitioner is Stephen Weeks Her past medical history includes morbid obesity, stability, reported history of hypertension. She may also have a history of diabetes, and possible COPD, bronchitis. The patient presents to the emergency room today with multiple complaints. Her first complaint is nontraumatic right leg pain and swelling. It is around the right thigh. This swelling is intermittent. It comes and goes. The swelling does not appear to have exacerbating or relieving factors. She reports that she saw her primary care provider in March earlier on this year for similar complaint, and was given meloxicam. The swelling subsided, and it subsequently returned. The swelling has been present for the past 3-4 days. She reports the swelling and pain is most prominent on the medial aspect of her right thigh. She endorses a secondary complaint of hip pain. She endorses a tertiary complaint of chest wall pain. The pain is present constantly for the past 2 days. She reports it does not radiate to the back, arms or neck. There is positive vomiting. There is no diaphoresis. There is chronic shortness of breath which is not a new, worsening or different. She may have had a DVT in the right lower extremity in 2006 at 2007. However, she endorses for mobility over the past 4 days. She endorses that she is able to tolerate Zofran and hydromorphone and morphine, but typically requires Benadryl for "itching." No recent aspirin consumption. Of note, the patient was seen by cardiology at this hospital for similar sy mptoms in December 2018. The patient had an extensive evaluation by cardiology, and they documented that she had an unremarkable ejection fraction of 50-55%, and an unremarkable thallium stress test approximately 1 year prior to December 2018. They did not recommend further ischemic workup. They felt like her symptoms were likely due to GI etiology. -: days(s) Location: chest, right, lower extremity Radiation: non-radiation Severity scale (0 -10): 10 Quality: aching Consistency: constant Improves with: rest Worsens with: movement Associated Symptoms: chest pain, cough, nausea/vomiting, shortness of breath - Related Data Previous Rx's Medication Instructions Recorded Last Taken Type Albuterol Sulfate [Albuterol 0.63% 0.63 mg IH TID PRN #180 vial.neb 12/10/17 Unknown Rx NEBS] AtorvaSTATin [Lipitor] 10 mg PO QHS #30 tablet 12/10/17 Unknown Rx Docusate Sodium [Colace CAP] 100 mg PO BID #60 capsule 12/10/17 Unknown Rx Ipratropium/Albuter (Nf) 2 puff IH QID #1 inha 12/10/17 Unknown Rx [Combivent Inhaler] Metoprolol [Lopressor TAB] 25 mg PO BID #60 tablet 12/10/17 Unknown Rx Dicyclomine [Bentyl] 10 mg PO QID #14 capsule 05/05/19 Unknown Rx Ondansetron [Zofran Odt] 4 mg PO Q8HR PRN #20 tab.rapdis 05/05/19 Unknown Rx Pantoprazole [Protonix TAB] 40 mg PO QDAY #30 tablet 05/05/19 Unknown Rx Allergies Allergy/AdvReac Type Severity Reaction Status Date / Time acetaminophen [From Percocet] Allergy Swelling Verified 12/23/17 18:04 metoclopramide HCl Allergy Swelling Verified 12/27/15 13:07 [From Reglan] morphine Allergy Itching Verified 12/27/15 13:07 nitroglycerin Allergy Hives Verified 04/26/18 10:59 ondansetron HCl [From Zofran] Allergy Swelling Verified 12/27/15 13:07 oxycodone [From Percocet] Allergy Swelling Verified 12/23/17 18:04 Penicillins Allergy Swelling Verified 12/27/15 13:07 prochlorperazine edisylate Allergy Swelling Verified 12/27/15 13:07 [From Compazine] prochlorperazine maleate Allergy Swelling Verified 12/27/15 13:07 [From Compazine] Sulfa (Sulfonamide Allergy Swelling Verified 12/27/15 13:07 Antibiotics) tramadol Allergy Swelling Verified 12/27/15 13:07 ED Review of Systems ROS: Stated complaint: CHEST AND RT LEG PAIN Other details as noted in HPI Constitutional: malaise. denies: fever Eyes: denies: eye discharge ENT: congestion Respiratory: shortness of breath Cardiovascular: chest pain Gastrointestinal: nausea, vomiting Musculoskeletal: arthralgia, myalgia Skin: denies: lesions Neurological: weakness (global) ED Past Medical Hx - Past Medical History Hx Hypertension: Yes Hx CVA: Yes (TIAs) Hx Congestive Heart Failure: Yes Hx Diabetes: No Hx Arthritis: Yes (spine) Hx Headaches / Migraines: Yes Hx Psychiatric Treatment: Yes (anxiety) Hx Asthma: Yes Hx COPD: Yes Additional medical history: vertigo, Obesity. lupus, C.diff. sarcoidosis. Subarachnoid hemorrhage. DDD WITH L5 BULGING DISK, DVT right leg - Surgical History Past Surgical History?: Yes Additional Surgical History: rt lung surgery BIOPSY 2004. x 5, Uter ine Ablation - Social History Smoking Status: Never Smoker Substance Use Type: None - Medications Home Medications: Home Medications Medication Instructions Recorded Confirmed Last Taken Type Albuterol Sulfate [Albuterol 0.63% 0.63 mg IH TID PRN #180 vial.neb 12/10/17 04/28/18 Unknown Rx NEBS] AtorvaSTATin [Lipitor] 10 mg PO QHS #30 tablet 12/10/17 04/28/18 Unknown Rx Docusate Sodium [Colace CAP] 100 mg PO BID #60 capsule 12/10/17 04/28/18 Unknown Rx Ipratropium/Albuter (Nf) 2 puff IH QID #1 inha 12/10/17 04/28/18 Unknown Rx [Combivent Inhaler] Metoprolol [Lopressor TAB] 25 mg PO BID #60 tablet 12/10/17 04/28/18 Unknown Rx Dicyclomine [Bentyl] 10 mg PO QID #14 capsule 05/05/19 Unknown Rx Ondansetron [Zofran Odt] 4 mg PO Q8HR PRN #20 tab.rapdis 05/05/19 Unknown Rx Pantoprazole [Protonix TAB] 40 mg PO QDAY #30 tablet 05/05/19 Unknown Rx ED Physical Exam - General Limitations: Physical Limitation General appearance: alert, anxious, obese - Head Head exam: Present: atraumatic, normocephalic - Eye Eye exam: Present: normal appearance, EOMI. Absent: nystagmus - ENT ENT exam: Present: normal exam, normal orophraynx, mucous membranes moist, normal external ear exam - Neck Neck exam: Present: normal inspection, full ROM. Absent: tenderness, meningismus - Respiratory Respiratory exam: Present: normal lung sounds bilaterally, chest wall tenderness. Absent: respiratory distress, wheezes, rales, rhonchi, stridor - Cardiovascular Cardiovascular Exam: Present: regular rate, normal rhythm, normal heart sounds. Absent: bradycardia, tachycardia, irregular rhythm, systolic murmur, diastolic murmur, rubs, gallop - GI/Abdominal GI/Abdominal exam: Present: soft. Absent: distended, tenderness, guarding, rebound, rigid, pulsatile mass - Extremities Exam Extremities exam: Present: normal inspection (chaperoned by nurse Shahid Lorenz), full ROM, tenderness (right medial thigh tenderness. no palpable cord. compartments soft), other (2+ pulses noted in the bilateral upper, lower extremities. Compartments soft. No long bony tenderness. The pelvis is stable.). Absent: calf tenderness - Back Exam Back exam: Present: normal inspection, full ROM, tenderness (there is reproducible right sided anterior and lateral and medial knee tenderness. There is medial thigh tenderness.). Absent: CVA tenderness (R), CVA tenderness (L), paraspinal tenderness, vertebral tenderness - Neurological Exam Neurological exam: Present: alert, oriented X3, other (2+ pulses noted in the bilateral upper, lower extremities. Compartments soft. No long bony tenderness. The pelvis is stable.). Absent: motor sensory deficit - Psychiatric Psychiatric exam: Present: anxious - Skin Skin exam: Present: warm, dry, intact, normal color. 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 03/27/2019 2 03/26/2019 ALPRAZOLAM 0.5 MG TABLET 30.0 30 ZE FOR [id number] [facility] [id number] [place] 02/23/2019 1 02/23/2019 ZOLPIDEM TARTRATE 5 MG TABLET 18.0 26 JE PHI [id number] [facility] ([id number]) 0 [place] 02/01/2019 1 02/01/2019 ACETAMINOPHEN-COD #3 TABLET 28.0 7 FOR [id number] [facility] ([id number]) 0 18.0 [facility] [place] 01/29/2019 1 01/29/2019 PROMETHAZINE-CODEINE SYRUP 70.0 7 JE PHI [id number] [facility] ([id number]) 0 3.0 [place] 01/29/2019 5 01/21/2019 ALPRAZOLAM 0.5 MG TABLET 60.0 30 [facility] [id number] [facility] ([id number]) 0 [place] 01/26/2019 2 01/25/2019 HYDROCODONE-CHLORPHEN ER SUSP 20.0 3 [facility] [id number] [facility] ([id number]) 0 13.33 [place] 01/03/2019 6 09/20/2018 OXYCODONE-ACETAMINOPHEN 5-325 60.0 30 [facility] [id number] [facility] ([id number]) 0 15.0 [place] 01/01/2019 5 10/20/2018 ALPRAZOLAM 0.5 MG TABLET 60.0 30 [facility] [id number] [facility] ([id number]) 0 [place] 12/02/2018 5 10/20/2018 OXYCODONE-ACETAMINOPHEN 5-325 60.0 30 [facility] [id number] [facility] ([id number]) 0 15.0 [place] Reevaluation #2: 05/04/19 20:37 Differential diagnosis, including but not limited to: Patellofemoral syndrome, sprain, strain, fracture, dislocation, arthritis secondary to morbid obesity Costochondritis, GERD, gastritis, hiatal hernia, pneumonia, acute coronary syndrome, pulmonary embolus Assessment and plan: 58-year-old female, morbid obesity, hypertension, diabetes, with multiple complaints Complaint #1, intermittent, reproducible, right leg, thigh pain and subjective swelling. She is tender, without evidence of cellulitis or compartment syndro me. Highly doubt DVT. This is most likely secondary to morbid obesity, deconditioning, question patellofemoral syndrome. We will obtain plain films. She will be given hydromorphone for her pain, which she reports she can tolerate. We'll attempt trial of ambulation after pain medication has been given. It appears that she is taking meloxicam for her muscular skeletal pain. This may be exacerbating complaint #2. Complaint #2, chest wall pain, nausea, vomiting. Suspect GI etiology, likely m ultifactorial, secondary to probable NSAID use. Shortness of breath appears to be chronic, she is not hypoxic, she is not tachycardic, I think a pulmonary embolus is unlikely, but we will send a d-dimer to risk stratify the patient for pulmonary embolus. Her EKG today is reviewed and appreciated, and appears to be unchanged from her old EKG. Her age, vascular risk factors, and history are reviewed and appreciated, I appreciate her heart score, however, I think the patient is unlikely to experience a major adverse cardiac event, given the history and contacts in totality. Reevaluation #3: 05/04/19 20:41 Patient watching movies on her cellular phone, headphones on, speaking in an animated fashion on her cellular phone prior to my interview, does not appear to be in any acute distress at this time. Reevaluation #4: 05/05/19 00:56 Patient is asking for saltine crackers. Patient also endorsing nausea. No active vomiting noted. Troponin negative 3. EKG unchanged 2. Nuclear medicine study low probability for pulmonary embolus. Pelvic x-ray, right femur x-ray, right knee x-ray negative for acute traumatic disease. Right-sided knee osteoarthritis is reviewed and appreciated. The patient has been observed in the emergency department for a prolonged period of time. She was observed by nursing staff to have ambulated with minimal assistance to a commode, and she reported to nursing team that she lives at home with her daughter. A case management consult has been ordered as an outpatient to determine if the patient is eligible for physical therapy. I have strongly encouraged the patient to consider diet and lifestyle modifications, as her right leg pain is likely secondary to morbid obesity, arthritis, and musculoskeletal pain. Renal insufficiency appears to be improved. Nuclear medicine study and is reviewed and appreciated. The patient will need to follow up with her primary care doctor, she can follow up with outpatient cardiology team that saw her earlier on this year, and I will refer her to outpatient bariatric surgery for consultation, as well as orthopedic surgery to discuss her options for outpatient management. Unfortunately, the patient is not an NSAID candidate given her history of mild renal insufficiency, and presumed GERD, gastritis. She is also unfortunately allergic to acetaminophen and tramadol. She will therefore need to follow up with her primary care physician for alternatives for pain control, and we can also refer her to outpatient pain specialist. ED Medical Decision Making - Lab Data Result diagrams: 05/04/19 19:05 05/04/19 23:48 Vital Signs 05/04/19 05/04/19 18:28 18:42 Temperature 98.6 F Pulse Rate 84 Respiratory 15 Rate Blood Pressure 111/59 O2 Sat by Pulse 96 99 Oximetry Lab Results 05/04/19 05/04/19 Range/Units 19:05 19:05 WBC 7.8 (4.5-11.0) K/mm3 RBC 4.00 (3.65-5.03) M/mm3 Hgb 11.6 (10.1-14.3) gm/dl Hct 34.9 (30.3-42.9) % MCV 87 (79-97) fl MCH 29 (28-32) pg MCHC 33 (30-34) % RDW 15.0 (13.2-15.2) % Plt Count 290 (140-440) K/mm3 Lymph % (Auto) 35.3 H (13.4-35.0) % [place] % (Auto) 9.8 H (0.0-7.3) % Eos % (Auto) 1.6 (0.0-4.3) % Baso % (Auto) 1.0 (0.0-1.8) % Lymph # 2.7 (1.2-5.4) K/mm3 [place] # 0.8 (0.0-0.8) K/mm3 Eos # 0.1 (0.0-0.4) K/mm3 Baso # 0.1 (0.0-0.1) K/mm3 Seg Neutrophils % 52.3 (40.0-70.0) % Seg Neutrophils # 4.1 (1.8-7.7) K/mm3 Sodium 140 (137-145) mmol/L Potassium 4.0 (3.6-5.0) mmol/L Chloride 99.7 (98-107) mmol/L Carbon Dioxide 25 (22-30) mmol/L Anion Gap 19 mmol/L BUN 36 H (7-17) mg/dL Creatinine 1.5 H (0.7-1.2) mg/dL Estimated GFR 43 ml/min BUN/Creatinine Ratio 24 % Glucose 91 (65-100) mg/dL Calcium 9.8 (8.4-10.2) mg/dL Troponin T < 0.010 (0.00-0.029) ng/mL - EKG Data -: EKG Interpreted by Me EKG shows normal: sinus rhythm Rate: normal - EKG Data 05/04/19 20:40 EKG today shows a sinus rhythm, 73 bpm, normal axis, normal intervals, unremarkable EKG, not consistent with ST elevation myocardial infarction, unchanged from prior EKG from December 2018. - Radiology Data Radiology results: report reviewed, image reviewed X-ray of the chest shows enlarged cardiac silhouette, otherwise, no acute disease. Critical care attestation.: If time is entered above; I have spent that time in minutes in the direct care of this critically ill patient, excluding procedure time. ED Disposition Clinical Impression: Thigh pain, Chest wall pain, History of nausea Disposition: -01 TO HOME OR SELFCARE Is pt being admited?: No Does the pt Need Aspirin: No Condition: Stable Instructions: Chest Pain (ED) Additional Instructions: Discontinue meloxicam, Motrin, ibuprofen, Naprosyn, Aleve. These medications will affect the way the kidney is functioning, and they may upset the stomach, and cause additional nausea, vomiting and discomfort. The patient will need to follow up with either her primary care doctor or a pain specialist for control of her pain. Unfortunately, because of the allergies of the patient has endorsed, the emergency room will not be able to provide outpatient pain medication, as we would typically recommend either acetaminophen, Motrin, ibuprofen, Naprosyn, Aleve, or some cases tramadol. One of the local pain specialist is Dr. Roca Avoid consumption of heavy, spicy foods. Participate in physical activities as tolerated. We recommend diet and lifestyle modifications, aggressive weight loss, and the patient may follow-up with her primary care doctor, or bariatric surgeon, Dr. Villafana, within the next month for further evaluation and management of these conditions. The patient's right leg pain is likely coming from arthritis, and excessive body weight and strain on the musculoskeletal joints. Weight loss will most likely alleviate the symptoms. The patient can follow up with her primary care doctor or orthopedic surgeon for her right leg pain, Dr. Miller is a local orthopedic surgeon. We do recommend that the patient follow up with her primary care doctor or cardi ologist, such as Dr. Del Angel, within the next 3-5 days for her chest wall pain. Please return to the emergency room right away with new, worsening or different symptoms. The patient may follow-up with orthopedics within the next 3-4 weeks. A case management consult has been requested to determine if the patient is eligible for a home physical therapy evaluation and treatment. Referrals: AGUSTIN DEL ANGEL MD [Staff Physician] - 3-5 Days CARMINA MILLER MD [Staff Physician] - 3-5 Days ROBERT VILLAFANA MD [Staff Physician] - 3-5 Days CAREY SWARTZ MD [Staff Physician] - 3-5 Days
[2019-05-04] MEDS ORDERED: CARAFATE PO ONE (19:33)
[2019-05-04] MEDS ORDERED: DILAUDID IV ONE (19:33)
[2019-05-04] MEDS ORDERED: PEPCID IV ONE (19:33)
[2019-05-04 19:37] LABS: BUN/Creatinine Ratio 24; Blood Urea Nitrogen 36 mg/dL (7-17); Calcium 9.8 mg/dL (8.4-10.2); Hemolysis Index 25
[2019-05-04] MEDS ORDERED: BANOPHEN PO ONE (19:38)
[2019-05-04] MEDS ORDERED: ZOFRAN IV ONE (19:38)
--- NOTE | 2019-05-04 20:07 | XRay Report ---
PROCEDURE: XR CHEST 1V AP TECHNIQUE: Chest radiograph single view. HISTORY: Chest Pain COMPARISONS: CXR 12/27/2018 . FINDINGS: Heart: Enlarged but stable. Mediastinum/Vessels: Normal. Lungs/Pleural space: Normal. Bony thorax: No acute osseous abnormality. Life support devices: None. IMPRESSION: No acute cardiopulmonary abnormality. Cardiomegaly is stable. This document is electronically signed by Radha Reich MD., May 04 2019 08:05:12 PM ET
[2019-05-04] MEDS ORDERED: NACL 0.9% 1000 ML 1,000 ML IV ONE (20:27)
[2019-05-04 21:52] VITALS: BP 134/60
[2019-05-05] MEDS ORDERED: DILAUDID IV ONE (00:23)
[2019-05-05 00:27] LABS: Calcium 9.9 mg/dL (8.4-10.2); Hemolysis Index 11
--- NOTE | 2019-05-05 00:29 | XRay Report ---
PROCEDURE: XR FEMUR 2+V RT TECHNIQUE: Right femur radiographs, AP and lateral views. HISTORY: right leg pain COMPARISONS: None . FINDINGS: Fracture (s) and/or Dislocation(s): None . Joint space(s): Normal . Soft tissues: Normal . Bone mineralization: Normal . Foreign bodies: None . IMPRESSION: Normal Examination . This document is electronically signed by Chi Alvares MD., May 04 2019 10:01:39 PM ET
--- NOTE | 2019-05-05 00:29 | XRay Report ---
PROCEDURE: XR KNEE 3V RT TECHNIQUE: Right knee radiographs, AP, lateral, and oblique views. HISTORY: right leg pain COMPARISONS: None FINDINGS: Bony alignment is within normal limits. Moderate degree osteophyte formation is noted involving the l ateral tibiofemoral and patellofemoral compartments. There is no evidence of joint effusion. An acute fracture is not identified. Soft tissues are normal. No radiopaque foreign bodies. IMPRESSION: Osteoarthritis of mild to moderate degree This document is electronically signed by Chi Alvares MD., May 04 2019 10:01:03 PM ET
--- NOTE | 2019-05-05 00:29 | XRay Report ---
PROCEDURE: XR PELVIS 1-2V TECHNIQUE: Pelvis radiograph, one view. HISTORY: leg pain COMPARISONS: None FINDINGS: Fracture(s): None Joint spaces: Normal Soft tissues: Normal Foreign bodies: None Bone mineralization: Normal IMPRESSION: Normal Examination This document is electronically signed by Chi Alvares MD., May 04 2019 10:02:16 PM ET
--- NOTE | 2019-05-05 00:30 | Nuclear Medicine Report ---
PROCEDURE: NM LUNG SCAN PERF/VENT TECHNIQUE: 3.96 mCi Tc-99m MAA was injected IV for pulmonary perfusion imaging in multiple projectio ns. 19.7 mCi xenon-133 gas was inhaled for pulmonary ventilation imaging in multiple projections. Inj ection site: RIGHT antecubital fossa. HISTORY: cp sob COMPARISONS: None . FINDINGS: Perfusion: No defects . Ventilation: No defects . IMPRESSION: Normal Examination . This document is electronically signed by Bozena Huratdo DO., May 04 2019 11:23:30 PM ET
[2019-05-05] MEDS ORDERED: PHENERGAN PO ONE (00:32)
[2019-05-05 00:47] LABS: BUN/Creatinine Ratio 26; Blood Urea Nitrogen 34 mg/dL (7-17)
== END 2019-05-05 02:01 | disposition home or self-care (01) ==
LOC: ED 18:01
DX: M79.651 Pain in right thigh (principal); R07.89 Other chest pain; R11.0 Nausea
CPT/HCPCS: 36415; 71045; 72170; 73552; 73562; 78582; 80048; 82550; 83735; 84484; 85025; 85379; 93005; 93010; 96361; 96374; 96375; 96376; 99285; A9540; A9558; J1170; J2405; J7030; Q0163; Q0169

== ENCOUNTER 2019-05-18 20:24 | Emergency (ER) | payer MEDICAID ==
--- NOTE | 2019-05-18 20:59 | Event Note ---
ED Screening Note Date of service: 05/18/19 Time: 20:57 ED Screening Note: 58 y/o female c/o N/V back pain and right leg pain and swelling. This initial assessment/diagnostic orders/clinical plan/treatment(s) is/are subject to change based on patients health status, clinical progression and re- assessment by fellow clinical providers in the ED. Further treatment and workup at subsequent clinical providers discretion. Patient/guardian urged not to elope from the ED as their condition may be serious if not clinically assessed and managed. Initial orders include:
[2019-05-18 21:33] LABS: Basophils % (Auto) 0.6 % (0.0-1.8); Eosinophils # (Auto) 0.1 K/mm3 (0.0-0.4); Eosinophils % (Auto) 2.4 % (0.0-4.3); Hemoglobin 11.2 gm/dl (10.1-14.3); Lymphocytes # (Auto) 2.5 K/mm3 (1.2-5.4); Mean Corpuscular HGB Conc 33 % (30-34); Mean Corpuscular Volume 88 fl (79-97); Monocytes # (Auto) 0.7 K/mm3 (0.0-0.8); Monocytes % (Auto) 11.7 % (0.0-7.3); Platelet Count 285 K/mm3 (140-440); Red Blood Count 3.86 M/mm3 (3.65-5.03); Red Cell Distribution Width 14.4 % (13.2-15.2)
[2019-05-18 22:06] LABS: Albumin 3.8 g/dL (3.9-5); Calcium 9.7 mg/dL (8.4-10.2)
[2019-05-18] MEDS ORDERED: BENADRYL IM ONE (23:33)
[2019-05-18] MEDS ORDERED: MORPHINE IM ONE (23:33)
--- NOTE | 2019-05-18 23:37 | Emergency Department Report ---
ED General Adult HPI - General Chief complaint: Extremity Injury, Lower Stated complaint: RT THIGH AND BACK PAIN Time Seen by Provider: 05/18/19 20:53 Source: patient, EMS Mode of arrival: Wheelchair Limitations: No Limitations - History of Present Illness Initial comments: Patient is 58 years old female morbidly obese. Patient presented to the ER comp laining of right thigh pain and swelling since yesterday. Patient also had history of chronic back pain. Patient stated that she had history of blood clots in her right leg and she was on Lovenox. Patient denied any chest pain or shortness of breath. - Related Data Previous Rx's Medication Instructions Recorded Last Taken Type Albuterol Sulfate [Albuterol 0.63% 0.63 mg IH TID PRN #180 vial.neb 12/10/17 Unknown Rx NEBS] AtorvaSTATin [Lipitor] 10 mg PO QHS #30 tablet 12/10/17 Unknown Rx Docusate Sodium [Colace CAP] 100 mg PO BID #60 capsule 12/10/17 Unknown Rx Ipratropium/Albuter (Nf) 2 puff IH QID #1 inha 12/10/17 Unknown Rx [Combivent Inhaler] Metoprolol [Lopressor TAB] 25 mg PO BID #60 tablet 12/10/17 Unknown Rx Dicyclomine [Bentyl] 10 mg PO QID #14 capsule 05/05/19 Unknown Rx Ondansetron [Zofran Odt] 4 mg PO Q8HR PRN #20 tab.rapdis 05/05/19 Unknown Rx Pantoprazole [Protonix TAB] 40 mg PO QDAY #30 tablet 05/05/19 Unknown Rx Allergies Allergy/AdvReac Type Severity Reaction Status Date / Time acetaminophen [From Percocet] Allergy Swelling Verified 12/23/17 18:04 metoclopramide HCl Allergy Swelling Verified 12/27/15 13:07 [From Reglan] morphine Allergy Itching Verified 12/27/15 13:07 nitroglycerin Allergy Hives Verified 04/26/18 10:59 ondansetron HCl [From Zofran] Allergy Swelling Verified 12/27/15 13:07 oxycodone [From Percocet] Allergy Swelling Verified 12/23/17 18:04 Penicillins Allergy Swelling Verified 12/27/15 13:07 prochlorperazine edisylate Allergy Swelling Verified 12/27/15 13:07 [From Compazine] prochlorperazine maleate Allergy Swelling Verified 12/27/15 13:07 [From Compazine] Sulfa (Sulfonamide Allergy Swelling Verified 12/27/15 13:07 Antibiotics) tramadol Allergy Swelling Verified 12/27/15 13:07 ED Review of Systems ROS: Stated complaint: RT THIGH AND BACK PAIN Other details as noted in HPI Comment: All other systems reviewed and negative Constitutional: denies: chills, fever Respiratory: denies: cough, orthopnea, shortness of breath, SOB with exertion, wheezing Cardiovascular: denies: chest pain, palpitations Gastrointestinal: denies: abdominal pain, nausea, vomiting, diarrhea, constipation, hematemesis, melena, hematochezia Musculoskeletal: back pain Neurological: denies: headache, weakness, numbness, paresthesias, confusion, abnormal gait ED Past Medical Hx - Past Medical History Previous Medical History?: Yes Hx Hypertension: Yes Hx CVA: Yes (TIAs) Hx Congestive Heart Failure: Yes Hx Diabetes: No Hx Arthritis: Yes (spine) Hx Headaches / Migraines: Yes Hx Psychiatric Treatment: Yes (anxiety) Hx Asthma: Yes Hx COPD: Yes Additional medical history: vertigo, Obesity. lupus, C.diff. sarcoidosis. Subarachnoid hemorrhage. DDD WITH L5 BULGING DISK, DVT right leg - Surgical History Past Surgical History?: Yes Additional Surgical History: rt lung surgery BIOPSY 2004. x 5, Uterine Ablation - Social History Smoking Status: Never Smoker Substance Use Type: None - Medications Home Medications: Home Medications Medication Instructions Recorded Confirmed Last Taken Type Albuterol Sulfate [Albuterol 0.63% 0.63 mg IH TID PRN #180 vial.neb 12/10/17 04/28/18 Unknown Rx NEBS] AtorvaSTATin [Lipitor] 10 mg PO QHS #30 tablet 12/10/17 04/28/18 Unknown Rx Docusate Sodium [Colace CAP] 100 mg PO BID #60 capsule 12/10/17 04/28/18 Unknown Rx Ipratropium/Albuter (Nf) 2 puff IH QID #1 inha 12/10/17 04/28/18 Unknown Rx [Combivent Inhaler] Metoprolol [Lopressor TAB] 25 mg PO BID #60 tablet 12/10/17 04/28/18 Unknown Rx Dicyclomine [Bentyl] 10 mg PO QID #14 capsule 05/05/19 Unknown Rx Ondansetron [Zofran Odt] 4 mg PO Q8HR PRN #20 tab.rapdis 05/05/19 Unknown Rx Pantoprazole [Protonix TAB] 40 mg PO QDAY #30 tablet 05/05/19 Unknown Rx ED Physical Exam - General Limitations: No Limitations General appearance: alert, in no apparent distress - Head Head exam: Present: atraumatic, normocephalic, normal inspection - Eye Eye exam: Present: normal appearance, PERRL - ENT ENT exam: Present: normal exam, normal orophraynx, mucous membranes moist - Neck Neck exam: Present: normal inspection, full ROM. Absent: tenderness, meningismus, lymphadenopathy, thyromegaly - Respiratory Respiratory exam: Present: normal lung sounds bilaterally - Cardiovascular Cardiovascular Exam: Present: regular rate, normal rhythm, normal heart sounds - GI/Abdominal GI/Abdominal exam: Present: soft, normal bowel sounds. Absent: distended, tenderness, guarding, rebound, rigid, organomegaly, mass, bruit, pulsatile mass, hernia - Extremities Exam Extremities exam: Present: normal inspection, full ROM, normal capillary refill. Absent: calf tenderness - Back Exam Back exam: Present: normal inspection, full ROM. Absent: tenderness, CVA tenderness (R), CVA tenderness (L), muscle spasm, paraspinal tenderness, vertebral tenderness - Neurological Exam Neurological exam: Present: alert, oriented X3, CN II-XII intact - Skin Skin exam: Present: warm, intact, normal color ED Course Vital Signs 05/18/19 05/18/19 05/18/19 20:51 23:12 23:30 Temperature 98.5 F Pulse Rate 64 63 Respiratory 18 21 16 Rate Blood Pressure 106/50 Blood Pressure [Right] O2 Sat by Pulse 98 98 Oximetry 05/19/19 05/19/19 05/19/19 00:00 00:10 00:40 Temperature Pulse Rate 67 Respiratory 11 L 16 16 Rate Blood Pressure 129/74 Blood Pressure [Right] O2 Sat by Pulse 98 Oximetry 05/19/19 05/19/19 05/19/19 01:00 02:43 03:07 Temperature 98.1 F Pulse Rate 67 69 Respiratory 12 16 17 Rate Blood Pressure 129/74 Blood Pressure 123/73 [Right] O2 Sat by Pulse 97 98 Oximetry ED Medical Decision Making - Lab Data Result diagrams: 05/18/19 21:01 05/18/19 21:01 - Radiology Data Radiology results: report reviewed - Medical Decision Making Patient is 58 years old female morbidly obese. Patient presented to the ER complaining of right thigh pain and swelling since yesterday. Patient also had history of chronic back pain. Patient stated that she had history of blood clots in her right leg and she was on Lovenox. Patient denied any chest pain or shortness of breath. Labs reviewed and is unremarkable. D-dimer is negative. Right lower extremity Doppler ultrasound is negative for acute finding no DVT. Patient stated that symptoms improved after pain medicine and patient advised to follow-up with her primary care physician in the next 2-3 days and to return to the ER if symptoms are not improved. Critical care attestation.: If time is entered above; I have spent that time in minutes in the direct care of this critically ill patient, excluding procedure time. ED Disposition Clinical Impression: Right thigh pain, Back pain Disposition: TO HOME OR SELFCARE Is pt being admited?: No Condition: Stable Instructions: Lumbar Radiculopathy (ED), Arthralgia (ED) Referrals: LORETA CRANE MD [Primary Care Provider] - 3-5 Days
[2019-05-19] MEDS ORDERED: PHENERGAN PO ONE (00:32)
[2019-05-19 00:48] LABS: INR 1.07 (0.87-1.13)
[2019-05-19 00:49] LABS: Partial Thromboplastin Time 30.1 Sec. (24.2-36.6)
[2019-05-19] MEDS ORDERED: MORPHINE IM ONE (02:28)
--- NOTE | 2019-05-19 02:55 | Vascular Lab Report ---
PROCEDURE: VL VENOUS DUPLEX LE RT TECHNIQUE: Duplex Doppler sonography of the right lower extremity. Matt scale imaging with and witho ut compression, spectral waveform analysis with and without augmentation, and color flow Doppler were employed. HISTORY: leg swelling and pain COMPARISONS: None FINDINGS: Deep Venous Thrombus: None Superficial Venous Thrombus: None Venous valvular incompetence: None Soft tissue abnormality: None IMPRESSION: No evidence of deep venous thrombosis This document is electronically signed by Bozena Hurtado DO., May 19 2019 02:53:17 AM ET
[2019-05-19 03:07] VITALS: BP 123/73
== END 2019-05-19 03:52 | disposition home or self-care (01) ==
LOC: ED 20:24
DX: M79.651 Pain in right thigh (principal); M54.9 Dorsalgia, unspecified; I11.0 Hypertensive heart disease with heart failure; I50.9 Heart failure, unspecified; M19.90 Unspecified osteoarthritis, unspecified site; J44.9 Chronic obstructive pulmonary disease, unspecified; Z86.73 Personal history of transient ischemic attack (TIA), and cerebral infarction without residual deficits; Z79.899 Other long term (current) drug therapy; Z88.6 Allergy status to analgesic agent; Z88.0 Allergy status to penicillin; Z88.2 Allergy status to sulfonamides; Z88.8 Allergy status to other drugs, medicaments and biological substances
CPT/HCPCS: 29505; 36415; 80053; 83690; 85025; 85379; 85610; 85730; 93971; 96372; 99284; J1200; J2270; Q0169

== ENCOUNTER 2019-05-28 19:50 | Emergency (ER) | payer MEDICAID ==
[2019-05-28 20:10] VITALS: BP 99/38
--- NOTE | 2019-05-28 21:04 | Event Note ---
ED Screening Note Date of service: 05/28/19 Time: 20:37 ED Screening Note: This is a 58 y.o. F. that presents to the ER with right thigh pain and swelling for several weeks. She also report back pain without recent injury. Patient states she was told RLE pain was related to obesity. She consulted a bariatric surgeon and can't have surgery until 6 month due to her insurance. This initial assessment/diagnostic orders/clinical plan/treatment(s) is/are subject to change based on patients health status, clinical progression and re- assessment by fellow clinical providers in the ED. Further treatment and workup at subsequent clinical providers discretion. Patient/guardian urged not to elope from the ED as their condition may be serious if not clinically assessed and managed. Initial orders include: XR of L-spine and labs
--- NOTE | 2019-05-28 21:30 | XRay Report ---
PROCEDURE: XR SPINE LUMBOSACRAL 2-3V TECHNIQUE: Lumbar spine 2 views HISTORY: low back pain COMPARISONS: Comparison is dated December 23, 2017 FINDINGS: Demonstrated is grade 1 anterolisthesis of L4 relative L5 which appears unchanged from prior exam. Th ere is disc space narrowing at L5-S1. Facet joint hypertrophy at L4-L5 and L5-S1 again noted. Vertebr al bodies are normal in height. Remaining disc spaces appear within normal limits. Overall stable fro m prior exam IMPRESSION: Spondylolisthesis at L4-L5 with disc space narrowing unchanged. Degenerative disc space narrowing at L5-S1 Facet joint hypertrophy lower lumbar spine. This document is electronically signed by Sher Gomez MD., May 28 2019 09:28:12 PM ET
[2019-05-29] MEDS ORDERED: TORADOL IM ONE (00:50)
--- NOTE | 2019-05-29 00:50 | Emergency Department Report ---
ED Lower Extremity HPI - General Chief Complaint: Back Pain/Injury Stated Complaint: VOMITING,BACK PAIN Time Seen by Provider: 05/28/19 20:31 Source: patient Mode of arrival: Ambulatory Limitations: No Limitations - History of Present Illness Initial Comments: Mrs. Williamson is a 58 yo female who presents with right leg swelling for 5-6 weeks. 2 years ago, dx'd with DVT in RLE. Previously treated with Lovenox. 10 days ago, US negative for DVT in RLE. Severe pain. Desires orthopedic referral. She also desires "Pain shot." Complaint: other (leg pain for 5-6 weeks) -: week(s) Injury: Leg: Right Severity: severe Worsens With: weight bearing Associated Symptoms: snap/pop sensation (feels that her knee is popping out of place) - Related Data Previous Rx's Medication Instructions Recorded Last Taken Type Albuterol Sulfate [Albuterol 0.63% 0.63 mg IH TID PRN #180 vial.neb 12/10/17 Unknown Rx NEBS] AtorvaSTATin [Lipitor] 10 mg PO QHS #30 tablet 12/10/17 Unknown Rx Docusate Sodium [Colace CAP] 100 mg PO BID #60 capsule 12/10/17 Unknown Rx Ipratropium/Albuter (Nf) 2 puff IH QID #1 inha 12/10/17 Unknown Rx [Combivent Inhaler] Metoprolol [Lopressor TAB] 25 mg PO BID #60 tablet 12/10/17 Unknown Rx Dicyclomine [Bentyl] 10 mg PO QID #14 capsule 05/05/19 Unknown Rx Ondansetron [Zofran Odt] 4 mg PO Q8HR PRN #20 tab.rapdis 05/05/19 Unknown Rx Pantoprazole [Protonix TAB] 40 mg PO QDAY #30 tablet 05/05/19 Unknown Rx HYDROcodone/APAP 5-325 [Silex 1 each PO Q6HR PRN #10 tablet 05/19/19 Unknown Rx 5/325] Promethazine [Phenergan] 25 mg PO Q8HR PRN #10 tab 05/19/19 Unknown Rx HYDROcodone/APAP 5-325 [Silex 1 each PO Q6HR PRN #10 tablet 05/29/19 Unknown Rx 5/325] Promethazine [Phenergan] 25 mg PO Q6HR PRN #10 tab 05/29/19 Unknown Rx Allergies Allergy/AdvReac Type Severity Reaction Status Date / Time acetaminophen [From Percocet] Allergy Swelling Verified 12/23/17 18:04 metoclopramide HCl Allergy Swelling Verified 12/27/15 13:07 [From Reglan] morphine Allergy Itching Verified 12/27/15 13:07 nitroglycerin Allergy Hives Verified 04/26/18 10:59 ondansetron HCl [From Zofran] Allergy Swelling Verified 12/27/15 13:07 oxycodone [From Percocet] Allergy Swelling Verified 12/23/17 18:04 Penicillins Allergy Swelling Verified 12/27/15 13:07 prochlorperazine edisylate Allergy Swelling Verified 12/27/15 13:07 [From Compazine] prochlorperazine maleate Allergy Swelling Verified 12/27/15 13:07 [From Compazine] Sulfa (Sulfonamide Allergy Swelling Verified 12/27/15 13:07 Antibiotics) tramadol Allergy Swelling Verified 12/27/15 13:07 ED Review of Systems ROS: Stated complaint: VOMITING,BACK PAIN Other details as noted in HPI Comment: All other systems reviewed and negative Constitutional: denies: fever, malaise Respiratory: denies: cough Cardiovascular: denies: chest pain ED Past Medical Hx - Past Medical History Previous Medical History?: Yes Hx Hypertension: Yes Hx CVA: Yes (TIAs) Hx Congestive Heart Failure: Yes Hx Diabetes: No Hx Arthritis: Yes (spine) Hx Headaches / Migraines: Yes Hx Psychiatric Treatment: Yes (anxiety) Hx Asthma: Yes Hx COPD: Yes Additional medical history: vertigo, Obesity. lupus, C.diff. sarcoidosis. Subarachnoid hemorrhage. DDD WITH L5 BULGING DISK, DVT right leg - Surgical History Past Surgical History?: Yes Additional Surgical History: rt lung surgery BIOPSY 2004. x 5, Uterine Ablation - Social History Smoking Status: Never Smoker Substance Use Type: None - Medications Home Medications: Home Medications Medication Instructions Recorded Confirmed Last Taken Type Albuterol Sulfate [Albuterol 0.63% 0.63 mg IH TID PRN #180 vial.neb 12/10/17 04/28/18 Unknown Rx NEBS] AtorvaSTATin [Lipitor] 10 mg PO QHS #30 tablet 01/10/18 05/29/18 Unknown Rx Docusate Sodium [Colace CAP] 100 mg PO BID #60 capsule 12/10/17 04/28/18 Unknown Rx Ipratropium/Albuter (Nf) 2 puff IH QID #1 inha 12/10/17 04/28/18 Unknown Rx [Combivent Inhaler] Metoprolol [Lopressor TAB] 25 mg PO BID #60 tablet 12/10/17 04/28/18 Unknown Rx Dicyclomine [Bentyl] 10 mg PO QID #14 capsule 05/05/19 Unknown Rx Ondansetron [Zofran Odt] 4 mg PO Q8HR PRN #20 tab.rapdis 05/05/19 Unknown Rx Pantoprazole [Protonix TAB] 40 mg PO QDAY #30 tablet 05/05/19 Unknown Rx HYDROcodone/APAP 5-325 [Silex 1 each PO Q6HR PRN #10 tablet 05/19/19 Unknown Rx 5/325] Promethazine [Phenergan] 25 mg PO Q8HR PRN #10 tab 05/19/19 Unknown Rx HYDROcodone/APAP 5-325 [Silex 1 each PO Q6HR PRN #10 tablet 05/29/19 Unknown Rx 5/325] Promethazine [Phenergan] 25 mg PO Q6HR PRN #10 tab 05/29/19 Unknown Rx ED Physical Exam - General Limitations: No Limitations General appearance: alert, in no apparent distress - Head Head exam: Present: atraumatic, normocephalic - Eye Eye exam: Present: normal appearance - ENT ENT exam: Present: mucous membranes moist - Neck Neck exam: Present: normal inspection, full ROM - Respiratory Respiratory exam: Present: normal lung sounds bilaterally. Absent: respiratory distress, wheezes, rales, rhonchi - Cardiovascular Cardiovascular Exam: Present: regular rate, normal rhythm, normal heart sounds. Absent: systolic murmur, diastolic murmur, rubs, gallop - GI/Abdominal GI/Abdominal exam: Present: soft, normal bowel sounds. Absent: distended, tenderness, guarding, rebound - Extremities Exam Extremities exam: Present: normal inspection - Back Exam Back exam: Present: normal inspection - Neurological Exam Neurological exam: Present: alert, oriented X3, other (steady gait but ambulates with slight limp) - Psychiatric Psychiatric exam: Present: normal affect, normal mood - Skin Skin exam: Present: warm, dry, intact, normal color. Absent: rash ED Course Vital Signs 05/28/19 20:07 Temperature 97.7 F Pulse Rate 74 Respiratory 19 Rate Blood Pressure 99/38 O2 Sat by Pulse 93 Oximetry ED Lower Extremity MDM - Medical Decision Making Mrs. Williamson presents with right lower extremity pain: Suspect DJD due to severe obesity BMI 57. Recent ultrasound negative for DVT. No evidence of cellulitis. Provided referral to orthopedic surgeon. Prescription for promethazine and Silex provided. Critical care attestation.: If time is entered above; I have spent that time in minutes in the direct care of this critically ill patient, excluding procedure time. ED Disposition Clinical Impression: Osteoarthritis, Severe obesity Disposition: DC- TO HOME OR SELFCARE Is pt being admited?: No Does the pt Need Aspirin: No Condition: Stable Instructions: Osteoarthritis (ED) Prescriptions: HYDROcodone/APAP 5-325 [Silex 5/325] 1 each PO Q6HR PRN #10 tablet PRN Reason: Pain Promethazine [Phenergan] 25 mg PO Q6HR PRN #10 tab PRN Reason: Nausea Referrals: CARMINA COPELAND MD [Staff Physician] - 3-5 Days
[2019-05-29] MEDS ORDERED: NORCO 5/325 PO ONE (01:32)
[2019-05-29] MEDS ORDERED: ZOFRAN ONE (01:45)
[2019-05-29] MEDS ORDERED: ZOFRAN IM ONE (02:22)
== END 2019-05-29 02:29 | disposition home or self-care (01) ==
LOC: ED 19:50
DX: M19.90 Unspecified osteoarthritis, unspecified site (principal); E66.01 Morbid (severe) obesity due to excess calories; Z68.43 Body mass index [BMI] 50.0-59.9, adult; I11.0 Hypertensive heart disease with heart failure; I50.9 Heart failure, unspecified; Z86.73 Personal history of transient ischemic attack (TIA), and cerebral infarction without residual deficits; M46.90 Unspecified inflammatory spondylopathy, site unspecified; G43.909 Migraine, unspecified, not intractable, without status migrainosus; F41.9 Anxiety disorder, unspecified; J44.9 Chronic obstructive pulmonary disease, unspecified; Z86.718 Personal history of other venous thrombosis and embolism; Z79.01 Long term (current) use of anticoagulants; Z79.899 Other long term (current) drug therapy; Z88.6 Allergy status to analgesic agent; Z88.0 Allergy status to penicillin; Z88.8 Allergy status to other drugs, medicaments and biological substances; M51.36 Other intervertebral disc degeneration, lumbar region
CPT/HCPCS: 36415; 72100; 85379; 96372; 99283; J2405; J1885

== ENCOUNTER 2019-06-14 12:43 | Emergency (ER) | payer MEDICAID ==
--- NOTE | 2019-06-14 12:52 | Emergency Department Report ---
Blank Doc - Documentation Documentation: This is a 58-year-old female that presents with bilateral leg pain and SOB. HX of CHF. This initial assessment/diagnostic orders/clinical plan/treatment(s) is/are subject to change based on patient's health status, clinical progression and re- assessment by fellow clinical providers in the ED. Further treatment and workup at subsequent clinical providers discretion. Patient/guardians urged not to elope from the ED as their condition may be serious if not clinically assessed and managed. Initial orders include: 1- Patient sent to MAIN ED for further evaluation and treatment 2- labs 3- EKG 4- CXR
--- NOTE | 2019-06-14 13:45 | XRay Report ---
CHEST 2 VIEWS INDICATION: Chest Pain. COMPARISON: 05/04/2019 FINDINGS: Support devices: None. Heart: Within normal limits. Pulmonary vasculature: Mild central vascular congestion and indistinctness of the pulmonary vessels. Lungs/pleura: Low lung volumes and left basal subsegmental atelectasis. No airspace disease or pleura l effusion. No pneumothorax. Additional findings: None. IMPRESSION: Low lung volumes and mild left lower lobe subsegmental atelectasis. No CHF or pneumonia. Signer Name: Collin Yeager MD Signed: 06/14/2019 1:40 PM Workstation Name: [id number]
[2019-06-14] MEDS ORDERED: NORCO 5/325 PO ONE (16:05)
[2019-06-14] MEDS ORDERED: ZOFRAN ODT ONE (16:19)
[2019-06-14] MEDS ORDERED: ZOFRAN ODT PO ONE (16:23)
[2019-06-14] MEDS ORDERED: MORPHINE IM ONE (17:02)
--- NOTE | 2019-06-14 17:02 | Emergency Department Report ---
ED Extremity Problem HPI - General Chief complaint: Back Pain/Injury Stated complaint: SOB/BACK PAIN Time Seen by Provider: 06/14/19 12:51 Source: patient Mode of arrival: Ambulatory Limitations: No Limitations - History of Present Illness Initial comments: 58 yo F presents to ED with complaint of right knee and leg pain and swelling x 1 week. Pt states she was previously told that her symptoms was due to her being overweight, so she recently saw a weight loss surgeon for possible bariatric surgery. Pt states she was seen at [facility] for same, given a dose of lovenox, and appt was scheduled for 2 weeks from now for an US. Pt states here PCP advised her to come to ED b/c 2 weeks was too long to wait for vascular US. MD Complaint: extremity pain, extremity swelling -: week(s) (1) Location: right, lower extremity History of Same: No -: Yes arthralgia, No fever, No associated chest pain Severity scale (0 -10): 9 Quality: aching Consistency: constant Improves with: immobilization Worsens with: weight bearing, walking Associated Symptoms: shortness of breath. denies: chest pain, fever - Related Data Previous Rx's Medication Instructions Recorded Last Taken Type Albuterol Sulfate [Albuterol 0.63% 0.63 mg IH TID PRN #180 vial.neb 12/10/17 Unknown Rx NEBS] AtorvaSTATin [Lipitor] 10 mg PO QHS #30 tablet 12/10/17 Unknown Rx Docusate Sodium [Colace CAP] 100 mg PO BID #60 capsule 12/10/17 Unknown Rx Ipratropium/Albuter (Nf) 2 puff IH QID #1 inha 12/10/17 Unknown Rx [Combivent Inhaler] Metoprolol [Lopressor TAB] 25 mg PO BID #60 tablet 12/10/17 Unknown Rx Dicyclomine [Bentyl] 10 mg PO QID #14 capsule 05/05/19 Unknown Rx Ondansetron [Zofran Odt] 4 mg PO Q8HR PRN #20 tab.rapdis 05/05/19 Unknown Rx Pantoprazole [Protonix TAB] 40 mg PO QDAY #30 tablet 05/05/19 Unknown Rx HYDROcodone/APAP 5-325 [[place] 1 each PO Q6HR PRN #10 tablet 05/19/19 Unknown Rx 5/325] Promethazine [Phenergan] 25 mg PO Q8HR PRN #10 tab 05/19/19 Unknown Rx HYDROcodone/APAP 5-325 [[place] 1 each PO Q6HR PRN #10 tablet 05/29/19 Unknown Rx 5/325] Promethazine [Phenergan] 25 mg PO Q6HR PRN #10 tab 05/29/19 Unknown Rx Allergies Allergy/AdvReac Type Severity Reaction Status Date / Time acetaminophen [From Percocet] Allergy Swelling Verified 12/23/17 18:04 metoclopramide HCl Allergy Swelling Verified 12/27/15 13:07 [From Reglan] nitroglycerin Allergy Hives Verified 04/26/18 10:59 ondansetron HCl [From Zofran] Allergy Swelling Verified 12/27/15 13:07 oxycodone [From Percocet] Allergy Swelling Verified 12/23/17 18:04 Penicillins Allergy Swelling Verified 12/27/15 13:07 prochlorperazine edisylate Allergy Swelling Verified 12/27/15 13:07 [From Compazine] prochlorperazine maleate Allergy Swelling Verified 12/27/15 13:07 [From Compazine] Sulfa (Sulfonamide Allergy Swelling Verified 12/27/15 13:07 Antibiotics) tramadol Allergy Swelling Verified 12/27/15 13:07 ED Review of Systems ROS: Stated complaint: SOB/BACK PAIN Other details as noted in HPI Comment: All other systems reviewed and negative Constitutional: denies: chills, fever Respiratory: shortness of breath Cardiovascular: denies: chest pain Musculoskeletal: joint swelling, arthralgia ED Past Medical Hx - Past Medical History Previous Medical History?: Yes Hx Hypertension: Yes Hx CVA: Yes (TIAs) Hx Congestive Heart Failure: Yes Hx Diabetes: No Hx Arthritis: Yes (spine) Hx Headaches / Migraines: Yes Hx Psychiatric Treatment: Yes (anxiety) Hx Asthma: Yes Hx COPD: Yes Additional medical history: vertigo, Obesity. lupus, C.diff. sarcoidosis. Subarachnoid hemorrhage. DDD WITH L5 BULGING DISK, DVT right leg - Surgical History Past Surgical History?: Yes Additional Surgical History: rt lung surgery BIOPSY 2004. x 5, Uterine Ablation - Social History Smoking Status: Former Smoker Substance Use Type: None - Medications Home Medications: Home Medications Medication Instructions Recorded Confirmed Last Taken Type Albuterol Sulfate [Albuterol 0.63% 0.63 mg IH TID PRN #180 vial.neb 12/10/17 04/28/18 Unknown Rx NEBS] AtorvaSTATin [Lipitor] 10 mg PO QHS #30 tablet 12/10/17 04/28/18 Unknown Rx Docusate Sodium [Colace CAP] 100 mg PO BID #60 capsule 12/10/17 04/28/18 Unknown Rx Ipratropium/Albuter (Nf) 2 puff IH QID #1 inha 12/10/17 04/28/18 Unknown Rx [Combivent Inhaler] Metoprolol [Lopressor TAB] 25 mg PO BID #60 tablet 12/10/17 04/28/18 Unknown Rx Dicyclomine [Bentyl] 10 mg PO QID #14 capsule 05/05/19 Unknown Rx Ondansetron [Zofran Odt] 4 mg PO Q8HR PRN #20 tab.rapdis 05/05/19 Unknown Rx Pantoprazole [Protonix TAB] 40 mg PO QDAY #30 tablet 05/05/19 Unknown Rx HYDROcodone/APAP 5-325 [[place] 1 each PO Q6HR PRN #10 tablet 05/19/19 Unknown Rx 5/325] Promethazine [Phenergan] 25 mg PO Q8HR PRN #10 tab 05/19/19 Unknown Rx HYDROcodone/APAP 5-325 [[place] 1 each PO Q6HR PRN #10 tablet 05/29/19 Unknown Rx 5/325] Promethazine [Phenergan] 25 mg PO Q6HR PRN #10 tab 05/29/19 Unknown Rx ED Physical Exam - General Limitations: No Limitations General appearance: alert, in no apparent distress - Head Head exam: Present: atraumatic, normocephalic - Eye Eye exam: Present: normal appearance, PERRL, EOMI - ENT ENT exam: Present: mucous membranes moist - Neck Neck exam: Present: normal inspection - Respiratory Respiratory exam: Present: normal lung sounds bilaterally. Absent: respiratory distress, wheezes - Cardiovascular Cardiovascular Exam: Present: regular rate, normal rhythm - GI/Abdominal GI/Abdominal exam: Present: soft. Absent: distended - Extremities Exam Extremities exam: Present: other (RLE slightly larger tahn LLE, tenderness present, no erythema present) - Neurological Exam Neurological exam: Present: alert, oriented X3 - Psychiatric Psychiatric exam: Present: normal affect, normal mood - Skin Skin exam: Present: warm, dry, intact, normal color. Absent: rash ED Course Vital Signs 06/14/19 06/14/19 06/14/19 12:52 15:00 15:29 Temperature 98.5 F Pulse Rate 79 Respiratory 18 19 Rate Blood Pressure 146/83 O2 Sat by Pulse 100 100 86 Oximetry 06/14/19 06/14/19 06/14/19 15:30 15:46 16:00 Temperature Pulse Rate 66 65 Respiratory 15 13 13 Rate Blood Pressure 126/59 126/59 O2 Sat by Pulse 98 100 100 Oximetry 06/14/19 06/14/19 06/14/19 16:16 16:30 16:46 Temperature Pulse Rate 65 67 58 L Respiratory 11 L 10 L 18 Rate Blood Pressure 126/59 126/59 126/59 O2 Sat by Pulse 92 100 100 Oximetry 06/14/19 06/14/19 06/14/19 17:04 17:29 17:30 Temperature Pulse Rate Respiratory Rate Blood Pressure 126/59 126/59 126/59 O2 Sat by Pulse 87 80 L 82 L Oximetry 06/14/19 17:46 Temperature Pulse Rate Respiratory Rate Blood Pressure 126/59 O2 Sat by Pulse 100 Oximetry - Reevaluation(s) Reevaluation #1: 06/14/19 17:00 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 ED Disposition Clinical Impression: Pain of right lower extremity Disposition: TO HOME OR SELFCARE Is pt being admited?: No Condition: Stable Instructions: Knee Pain (ED), Arthralgia (ED) Referrals: GOOD VOSSCAVALIER MD YAS [Primary Care Provider] - 3-5 Days PRIMARY CAREMD [Referring] - 3-5 Days Time of Disposition: 17:01
--- NOTE | 2019-06-14 17:14 | Vascular Lab Report ---
DUPLEX DOPPLER LOWER EXTREMITY VEINS, RIGHT INDICATION: pain, swelling. TECHNIQUE: Duplex doppler imaging was performed through the veins of the right lower extremity using venous comp ression and other maneuvers. COMPARISON: None available. FINDINGS: Common Femoral vein: Negative. Femoral vein: Negative. Popliteal vein: Negative. Calf veins: Negative. Additional findings: Small right popliteal cyst IMPRESSION: 1. No sonographic evidence for DVT in the right lower extremity. Signer Name: Anil Guerrero MD Signed: 06/14/2019 5:10 PM Workstation Name: [id number]
[2019-06-14] MEDS ORDERED: BENADRYL PO ONE (17:50)
[2019-06-14 19:15] VITALS: BP 135/84
== END 2019-06-14 18:15 | disposition home or self-care (01) ==
LOC: ED 12:43
DX: M25.561 Pain in right knee (principal); I11.0 Hypertensive heart disease with heart failure; I50.9 Heart failure, unspecified; M19.90 Unspecified osteoarthritis, unspecified site; F41.9 Anxiety disorder, unspecified; J44.9 Chronic obstructive pulmonary disease, unspecified; Z86.73 Personal history of transient ischemic attack (TIA), and cerebral infarction without residual deficits; Z79.899 Other long term (current) drug therapy; Z98.890 Other specified postprocedural states; Z87.891 Personal history of nicotine dependence; Z88.6 Allergy status to analgesic agent; Z88.0 Allergy status to penicillin; Z88.2 Allergy status to sulfonamides; Z88.8 Allergy status to other drugs, medicaments and biological substances
CPT/HCPCS: 71046; 93005; 93010; 93971; 96372; 99284; J2270; Q0162

== ENCOUNTER 2019-06-19 18:30 | Emergency (ER) | payer MEDICAID ==
[2019-06-19 18:37] VITALS: BP 162/87
--- NOTE | 2019-06-19 19:33 | XRay Report ---
Right knee, 4 views INDICATION: Right knee pain FINDINGS: The joint spaces are intact. There is slight lateral and patellofemoral spurring. No fractu re is seen. There may be a small joint effusion. No acute abnormality. Signer Name: Moi Solorzano MD Signed: 06/19/2019 7:28 PM Workstation Name: [id number]
[2019-06-19] MEDS ORDERED: SOLU-Medrol IV ONE (20:50)
[2019-06-19] MEDS ORDERED: MORPHINE IV STA (20:57)
[2019-06-19] MEDS ORDERED: BENADRYL IV STA (20:58)
--- NOTE | 2019-06-19 21:03 | Emergency Department Report ---
ED General Adult HPI - General Chief complaint: Extremity Injury, Lower Stated complaint: RT KNEE SWELLING/PAIN Time Seen by Provider: 06/19/19 20:26 Source: patient Mode of arrival: Wheelchair Limitations: No Limitations - History of Present Illness Initial comments: 58-year-old morbidly obese -[place] female with past medical history of lupus the care of orthopedics emergency department complaining of pain to the right knee. She status post injection to her right knee with still reports a couple days ago reports since getting the injection. She noticed more swelling to the thigh area and pain in the was some warmth. She also been experiencing some nausea, vomiting, and seeks treatment for that as well. She is requesting a steroid-induced diabetes thinks this may be flaring up and trying to be healed over until she can follow up with orthopedic. She's been taken Motrin at home but has not been resolving. The pain reports no fever, chills, sweats. Location: lower extremity Radiation: non-radiation Quality: aching, dull Consistency: constant Improves with: none Worsens with: none Associated Symptoms: denies: chest pain, cough, diaphoresis, malaise, nausea/vomiting, shortness of breath, syncope, weakness Treatments Prior to Arrival: none - Related Data Previous Rx's Medication Instructions Recorded Last Taken Type Albuterol Sulfate [Albuterol 0.63% 0.63 mg IH TID PRN #180 vial.neb 12/10/17 Unknown Rx NEBS] AtorvaSTATin [Lipitor] 10 mg PO QHS #30 tablet 12/10/17 Unknown Rx Docusate Sodium [Colace CAP] 100 mg PO BID #60 capsule 12/10/17 Unknown Rx Ipratropium/Albuter (Nf) 2 puff IH QID #1 inha 12/10/17 Unknown Rx [Combivent Inhaler] Metoprolol [Lopressor TAB] 25 mg PO BID #60 tablet 12/10/17 Unknown Rx Dicyclomine [Bentyl] 10 mg PO QID #14 capsule 05/05/19 Unknown Rx Ondansetron [Zofran Odt] 4 mg PO Q8HR PRN #20 tab.rapdis 05/05/19 Unknown Rx Pantoprazole [Protonix TAB] 40 mg PO QDAY #30 tablet 05/05/19 Unknown Rx HYDROcodone/APAP 5-325 [[place] 1 each PO Q6HR PRN #10 tablet 05/19/19 Unknown Rx 5/325] Promethazine [Phenergan] 25 mg PO Q8HR PRN #10 tab 05/19/19 Unknown Rx HYDROcodone/APAP 5-325 [[place] 1 each PO Q6HR PRN #10 tablet 05/29/19 Unknown Rx 5/325] Promethazine [Phenergan] 25 mg PO Q6HR PRN #10 tab 05/29/19 Unknown Rx predniSONE [Deltasone] 20 mg PO QDAY #7 tab 06/19/19 Unknown Rx Allergies Allergy/AdvReac Type Severity Reaction Status Date / Time acetaminophen [From Percocet] Allergy Swelling Verified 12/23/17 18:04 metoclopramide HCl Allergy Swelling Verified 12/27/15 13:07 [From Reglan] nitroglycerin Allergy Hives Verified 04/26/18 10:59 ondansetron HCl [From Zofran] Allergy Swelling Verified 12/27/15 13:07 oxycodone [From Percocet] Allergy Swelling Verified 12/23/17 18:04 Penicillins Allergy Swelling Verified 12/27/15 13:07 prochlorperazine edisylate Allergy Swelling Verified 12/27/15 13:07 [From Compazine] prochlorperazine maleate Allergy Swelling Verified 12/27/15 13:07 [From Compazine] Sulfa (Sulfonamide Allergy Swelling Verified 12/27/15 13:07 Antibiotics) tramadol Allergy Swelling Verified 12/27/15 13:07 ED Review of Systems ROS: Stated complaint: RT KNEE SWELLING/PAIN Other details as noted in HPI Comment: All other systems reviewed and negative ED Past Medical Hx - Past Medical History Previous Medical History?: Yes Hx Hypertension: Yes Hx CVA: Yes (TIAs) Hx Congestive Heart Failure: Yes Hx Diabetes: No Hx Arthritis: Yes (spine) Hx Headaches / Migraines: Yes Hx Psychiatric Treatment: Yes (anxiety) Hx Asthma: Yes Hx COPD: Yes Additional medical history: vertigo, Obesity. lupus, C.diff. sarcoidosis. Subarachnoid hemorrhage. DDD WITH L5 BULGING DISK, DVT right leg - Surgical History Past Surgical History?: Yes Additional Surgical History: rt lung surgery BIOPSY 2004. x 5, Uterine Ablation - Social History Smoking Status: Never Smoker Substance Use Type: None - Medications Home Medications: Home Medications Medication Instructions Recorded Confirmed Last Taken Type Albuterol Sulfate [Albuterol 0.63% 0.63 mg IH TID PRN #180 vial.neb 12/10/17 04/28/18 Unknown Rx NEBS] AtorvaSTATin [Lipitor] 10 mg PO QHS #30 tablet 12/10/17 04/28/18 Unknown Rx Docusate Sodium [Colace CAP] 100 mg PO BID #60 capsule 12/10/17 04/28/18 Unknown Rx Ipratropium/Albuter (Nf) 2 puff IH QID #1 inha 12/10/17 04/28/18 Unknown Rx [Combivent Inhaler] Metoprolol [Lopressor TAB] 25 mg PO BID #60 tablet 12/10/17 04/28/18 Unknown Rx Dicyclomine [Bentyl] 10 mg PO QID #14 capsule 05/05/19 Unknown Rx Ondansetron [Zofran Odt] 4 mg PO Q8HR PRN #20 tab.rapdis 05/05/19 Unknown Rx Pantoprazole [Protonix TAB] 40 mg PO QDAY #30 tablet 05/05/19 Unknown Rx HYDROcodone/APAP 5-325 [[place] 1 each PO Q6HR PRN #10 tablet 05/19/19 Unknown Rx 5/325] Promethazine [Phenergan] 25 mg PO Q8HR PRN #10 tab 05/19/19 Unknown Rx HYDROcodone/APAP 5-325 [[place] 1 each PO Q6HR PRN #10 tablet 05/29/19 Unknown Rx 5/325] Promethazine [Phenergan] 25 mg PO Q6HR PRN #10 tab 05/29/19 Unknown Rx predniSONE [Deltasone] 20 mg PO QDAY #7 tab 06/19/19 Unknown Rx ED Physical Exam - General Limitations: No Limitations General appearance: alert, in no apparent distress - Head Head exam: Present: atraumatic, normocephalic - Eye Eye exam: Present: normal appearance - ENT ENT exam: Present: mucous membranes moist - Neck Neck exam: Present: normal inspection - Respiratory Respiratory exam: Present: normal lung sounds bilaterally. Absent: respiratory distress - Cardiovascular Cardiovascular Exam: Present: regular rate, normal rhythm. Absent: systolic murmur, diastolic murmur, rubs, gallop - GI/Abdominal GI/Abdominal exam: Present: soft, normal bowel sounds - Extremities Exam Extremities exam: Present: normal inspection, full ROM, tenderness (right knee with palpation. Joint is stable. No popliteal masses appreciated. Pulses 2+. No crepitus or effusion appreciated) - Back Exam Back exam: Present: normal inspection, full ROM. Absent: CVA tenderness (R), CVA tenderness (L) - Neurological Exam Neurological exam: Present: alert, oriented X3, CN II-XII intact, normal gait - Psychiatric Psychiatric exam: Present: normal affect, normal mood - Skin Skin exam: Present: warm, dry, intact, normal color. Absent: rash ED Course Vital Signs 06/19/19 06/19/19 18:35 22:16 Temperature 98.3 F Pulse Rate 87 Respiratory 18 16 Rate Blood Pressure 162/87 O2 Sat by Pulse 95 Oximetry ED Medical Decision Making - Lab Data Result diagrams: 06/19/19 21:52 06/19/19 21:52 Critical care attestation.: If time is entered above; I have spent that time in minutes in the direct care of this critically ill patient, excluding procedure time. ED Disposition Clinical Impression: Chronic knee pain Disposition: DC-01 TO HOME OR SELFCARE Is pt being admited?: No Does the pt Need Aspirin: No Condition: Stable Instructions: Arthralgia (ED), RICE Therapy (ED), Ice Pack Application (ED) Additional Instructions: Please be sure to follow with the orthopedics and they can [id number] right leg post knee injection. Be sure to apply ice as we discussed and utilize distillates for an time from torticollis Prescriptions: predniSONE [Deltasone] 20 mg PO QDAY #7 tab Referrals: MICHELE ESCOBAR MD [Primary Care Provider] - 3-5 Days
[2019-06-19 22:05] LABS: Basophils % (Auto) 0.5 % (0.0-1.8); Eosinophils # (Auto) 0.1 K/mm3 (0.0-0.4); Eosinophils % (Auto) 1.9 % (0.0-4.3); Hematocrit 36.1 % (30.3-42.9); Hemoglobin 11.7 gm/dl (10.1-14.3); Lymphocytes # (Auto) 2.5 K/mm3 (1.2-5.4); Lymphocytes % (Auto) 33.2 % (13.4-35.0); Mean Corpuscular HGB Conc 32 % (30-34); Mean Corpuscular Hemoglobin 29 pg (28-32); Mean Corpuscular Volume 90 fl (79-97); Monocytes # (Auto) 0.8 K/mm3 (0.0-0.8); Monocytes % (Auto) 9.9 % (0.0-7.3); Platelet Count 275 K/mm3 (140-440); Red Blood Count 4.01 M/mm3 (3.65-5.03); Red Cell Distribution Width 14.2 % (13.2-15.2)
[2019-06-19 22:17] LABS: Alanine Aminotransferase 10 units/L (7-56); Albumin 4.2 g/dL (3.9-5); BUN/Creatinine Ratio 15; Blood Urea Nitrogen 17 mg/dL (7-17); Calcium 9.3 mg/dL (8.4-10.2); Hemolysis Index 9
[2019-06-20] MEDS ORDERED: ZOFRAN ODT PO ONE (00:31)
[2019-06-20] MEDS ORDERED: PERCOCET 5/325 PO ONE (00:31)
[2019-06-20] MEDS ORDERED: PERCOCET 5/325 ONE (00:38)
[2019-06-20] MEDS ORDERED: ZOFRAN ODT ONE (00:38)
== END 2019-06-20 01:10 | disposition home or self-care (01) ==
LOC: ED 18:30
DX: G89.29 Other chronic pain (principal); M25.561 Pain in right knee; M79.89 Other specified soft tissue disorders; R11.2 Nausea with vomiting, unspecified; I11.0 Hypertensive heart disease with heart failure; I50.9 Heart failure, unspecified; M19.90 Unspecified osteoarthritis, unspecified site; F41.9 Anxiety disorder, unspecified; Z86.73 Personal history of transient ischemic attack (TIA), and cerebral infarction without residual deficits; Z86.718 Personal history of other venous thrombosis and embolism; Z79.899 Other long term (current) drug therapy; Z88.6 Allergy status to analgesic agent; Z88.8 Allergy status to other drugs, medicaments and biological substances; Z88.0 Allergy status to penicillin; Z88.2 Allergy status to sulfonamides; Z98.890 Other specified postprocedural states
CPT/HCPCS: 36415; 73562; 80053; 85025; 96374; 96375; 99284; J1200; J2270; J2930; Q0162

== ENCOUNTER 2019-07-17 20:55 | Emergency (ER) | payer MEDICAID ==
[2019-07-17 21:08] VITALS: BP 135/67
[2019-07-17] MEDS ORDERED: ASPIRIN PO ONE (21:15)
[2019-07-17] MEDS ORDERED: CARAFATE PO ONE (21:39)
[2019-07-17] MEDS ORDERED: PEPCID PO ONE (21:39)
[2019-07-17] MEDS ORDERED: PHENERGAN PO ONE (21:42)
--- NOTE | 2019-07-17 22:03 | XRay Report ---
CHEST 1 VIEW INDICATION: Chest Pain. COMPARISON: none FINDINGS: SUPPORT DEVICES: None. HEART / MEDIASTINUM: No significant abnormality. LUNGS / PLEURA: No significant pulmonary or pleural abnormality. No pneumothorax. ADDITIONAL FINDINGS: IMPRESSION: 1. No acute findings. Signer Name: Jay De Luna MD Signed: 07/17/2019 9:59 PM Workstation Name: [id number]
--- NOTE | 2019-07-17 22:10 | Emergency Department Report ---
ED General Adult HPI - General Chief complaint: Chest Pain Stated complaint: CHEST PAIN Time Seen by Provider: 07/17/19 21:31 Source: patient, RN notes reviewed, old records reviewed Mode of arrival: Ambulatory Limitations: Physical Limitation - History of Present Illness Initial comments: This is a 58-year-old female. I evaluated this patient in the past. Her primary care provider is nurse practitioner Yasmine Weeks Past medical history includes morbid obesity, hypertension, diabetes, COPD/bronchitis, costochondritis, questionable GERD, gastritis I evaluated this patient for chest wall pain May 2019. Patient was evaluated for ischemic chest pain at this hospital in December 2018. She had a negative nuclear stress test, and cardiology did not recommend additional ischemic workup. In addition, the patient had a low probability nuclear medicine study for pulmonary embolism in May 2019. Today, the patient presents to the ER with her typical complaint of central chest wall pressure, present approximately 422 hours, radiates to the neck, with associated quivering breath, but no vomiting. She reports that she is nauseous. No recent aspirin consumption. No recent travel or surgeries. She reports that she followed up with an outpatient brick grader after I evaluated her, and they recommended supportive and expected management. The patient is also currently following up with Dr. Villafana for bariatric surgery evaluation. The patient denies fever. Positive dry cough. Positive congestion. No lower abdominal pain. No urinary symptoms. Chest wall pressure is described as pressure and heaviness, and is constant. It worsens with palpation. It decreases with rest. -: Gradual, hour(s) (22) Location: chest Radiation: other Quality: other Improves with: other Worsens with: other - Related Data Previous Rx's Medication Instructions Recorded Last Taken Type Albuterol Sulfate [Albuterol 0.63% 0.63 mg IH TID PRN #180 vial.neb 12/10/17 Unknown Rx NEBS] AtorvaSTATin [Lipitor] 10 mg PO QHS #30 tablet 12/10/17 Unknown Rx Docusate Sodium [Colace CAP] 100 mg PO BID #60 capsule 12/10/17 Unknown Rx Ipratropium/Albuter (Nf) 2 puff IH QID #1 inha 12/10/17 Unknown Rx [Combivent Inhaler] Metoprolol [Lopressor TAB] 25 mg PO BID #60 tablet 12/10/17 Unknown Rx Promethazine [Phenergan] 25 mg PO Q6HR PRN #10 tab 05/29/19 Unknown Rx predniSONE [Deltasone] 20 mg PO QDAY #7 tab 06/19/19 Unknown Rx Dicyclomine [Bentyl] 10 mg PO QID #14 capsule 07/17/19 Unknown Rx Pantoprazole [Protonix TAB] 40 mg PO QDAY #30 tablet 07/17/19 Unknown Rx Promethazine [Phenergan] 25 mg PO Q8HR PRN #10 tab 07/17/19 Unknown Rx Allergies Allergy/AdvReac Type Severity Reaction Status Date / Time acetaminophen [From Percocet] Allergy Swelling Verified 12/23/17 18:04 metoclopramide HCl Allergy Swelling Verified 12/27/15 13:07 [From Reglan] nitroglycerin Allergy Hives Verified 04/26/18 10:59 ondansetron HCl [From Zofran] Allergy Swelling Verified 12/27/15 13:07 oxycodone [From Percocet] Allergy Swelling Verified 12/23/17 18:04 Penicillins Allergy Swelling Verified 12/27/15 13:07 prochlorperazine edisylate Allergy Swelling Verified 12/27/15 13:07 [From Compazine] prochlorperazine maleate Allergy Swelling Verified 12/27/15 13:07 [From Compazine] Sulfa (Sulfonamide Allergy Swelling Verified 12/27/15 13:07 Antibiotics) tramadol Allergy Swelling Verified 12/27/15 13:07 ED Review of Systems ROS: Stated complaint: CHEST PAIN Other details as noted in HPI Constitutional: denies: fever Eyes: denies: vision change ENT: congestion Respiratory: cough Cardiovascular: chest pain Gastrointestinal: vomiting Genitourinary: denies: dysuria Musculoskeletal: arthralgia, myalgia Skin: denies: lesions Neurological: weakness Psychiatric: anxiety ED Past Medical Hx - Past Medical History Hx Hypertension: Yes Hx CVA: Yes (TIAs) Hx Congestive Heart Failure: Yes Hx Diabetes: No Hx Arthritis: Yes (spine) Hx Headaches / Migraines: Yes Hx Psychiatric Treatment: Yes (anxiety) Hx Asthma: Yes Hx COPD: Yes Additional medical history: vertigo, Obesity. lupus, C.diff. sarcoidosis. Subarachnoid hemorrhage. DDD WITH L5 BULGING DISK, DVT right leg - Surgical History Additional Surgical History: rt lung surgery BIOPSY 2004. x 5, Uterine Ablation - Social History Smoking Status: Never Smoker Substance Use Type: None - Medications Home Medications: Home Medications Medication Instructions Recorded Confirmed Last Taken Type Albuterol Sulfate [Albuterol 0.63% 0.63 mg IH TID PRN #180 vial.neb 12/10/17 04/28/18 Unknown Rx NEBS] AtorvaSTATin [Lipitor] 10 mg PO QHS #30 tablet 12/10/17 04/28/18 Unknown Rx Docusate Sodium [Colace CAP] 100 mg PO BID #60 capsule 12/10/17 04/28/18 Unknown Rx Ipratropium/Albuter (Nf) 2 puff IH QID #1 inha 12/10/17 04/28/18 Unknown Rx [Combivent Inhaler] Metoprolol [Lopressor TAB] 25 mg PO BID #60 tablet 12/10/17 04/28/18 Unknown Rx Promethazine [Phenergan] 25 mg PO Q6HR PRN #10 tab 05/29/19 Unknown Rx predniSONE [Deltasone] 20 mg PO QDAY #7 tab 06/19/19 Unknown Rx Dicyclomine [Bentyl] 10 mg PO QID #14 capsule 07/17/19 Unknown Rx Pantoprazole [Protonix TAB] 40 mg PO QDAY #30 tablet 07/17/19 Unknown Rx Promethazine [Phenergan] 25 mg PO Q8HR PRN #10 tab 07/17/19 Unknown Rx ED Physical Exam - General Limitations: No Limitations General appearance: alert, in no apparent distress, obese - Head Head exam: Present: atraumatic, normocephalic - Eye Eye exam: Present: normal appearance, EOMI. Absent: nystagmus - ENT ENT exam: Present: normal exam, normal orophraynx, mucous membranes moist, normal external ear exam - Neck Neck exam: Present: normal inspection, full ROM. Absent: tenderness, meningismus - Respiratory Respiratory exam: Present: normal lung sounds bilaterally, chest wall tenderness, other (chaperoned by KVNG Tan). Absent: respiratory distress, wheezes, rales, rhonchi, stridor - Cardiovascular Cardiovascular Exam: Present: regular rate, normal rhythm, normal heart sounds. Absent: bradycardia, tachycardia, irregular rhythm, systolic murmur, diastolic murmur, rubs, gallop - GI/Abdominal GI/Abdominal exam: Present: soft. Absent: distended, tenderness, guarding, rebound, rigid, pulsatile mass - Extremities Exam Extremities exam: Present: normal inspection, other (there is no palpable cord. There is negative Homans sign.2+ pulses noted in the bilateral upper, lower extremities. Compartments soft. No long bony tenderness. The pelvis is stable.). Absent: pedal edema, joint swelling, calf tenderness - Back Exam Back exam: Present: normal inspection, full ROM. Absent: tenderness, CVA tenderness (R), CVA tenderness (L), paraspinal tenderness, vertebral tenderness - Neurological Exam Neurological exam: Present: alert, other (Extraocular movements intact. Tongue midline. No facial droop. Facial sensation intact to light touch in the V1, V2, V3 distribution bilaterally. 5 and 5 strength in 4 extremities.. Sensation is intact to light touch in 4 extremities.). Absent: motor sensory deficit - Psychiatric Psychiatric exam: Present: anxious - Skin Skin exam: Present: warm, dry, intact, normal color. Absent: rash ED Course Vital Signs 07/17/19 21:06 Temperature 98.3 F Pulse Rate 88 Respiratory 20 Rate Blood Pressure 135/67 O2 Sat by Pulse 100 Oximetry - Reevaluation(s) Reevaluation #1: 07/17/19 22:09 differential diagnosis, including but not limited to: GERD, gastritis, costochondritis, pneumonia, acute coronary syndrome, anxiety Assessment and plan: 58-year-old female, who has been seen in this department and by myself for chest pain, has had extensive workup, recent ischemic e valuation, unchanged EKG 2, not tachycardic, not hypoxic, risk by well's criteria, with reproducible recurrent chest wall pain. Patient endorses pain for the past 22 hours constantly. As for the [employer] clinical policy, myocardial infarction may be ruled out with one set of cardiac enzymes if symptoms present for greater than 8 hours. Furthermore, the patient is quite comfortable, not vomiting, and speaking underside of the phone. Her physical exam today is unchanged from her prior physical examination. Her EKGs appear to be unchanged. The patient does not appear to have an emergent medical condition at this time, given her extensive and thorough recent workups and evaluations, assuming unremarkable laboratory studies, we would consider the patient medically suitable to follow up as an outpatient Reevaluation #2: 07/17/19 22:40 Laboratory studies unremarkable. Patient no acute distress. No active vomiting. Patient medically suitable to be discharged at this point in time. ED Medical Decision Making - Lab Data Result diagrams: 07/17/19 21:56 07/17/19 21:56 Vital Signs 07/17/19 21:06 Temperature 98.3 F Pulse Rate 88 Respiratory 20 Rate Blood Pressure 135/67 O2 Sat by Pulse 100 Oximetry Lab Results 07/17/19 07/17/19 Range/Units 21:56 21:56 WBC 6.4 (4.5-11.0) K/mm3 RBC 3.81 (3.65-5.03) M/mm3 Hgb 11.1 (10.1-14.3) gm/dl Hct 33.4 (30.3-42.9) % MCV 88 (79-97) fl MCH 29 (28-32) pg MCHC 33 (30-34) % RDW 14.0 (13.2-15.2) % Plt Count 330 (140-440) K/mm3 Sodium 140 (137-145) mmol/L Potassium 3.6 (3.6-5.0) mmol/L Chloride 102.9 (98-107) mmol/L Carbon Dioxide 26 (22-30) mmol/L Anion Gap 15 mmol/L BUN 24 H (7-17) mg/dL Creatinine 0.9 (0.7-1.2) mg/dL Estimated GFR > 60 ml/min BUN/Creatinine Ratio 27 % Glucose 95 (65-100) mg/dL Calcium 9.1 (8.4-10.2) mg/dL Troponin T < 0.010 (0.00-0.029) ng/mL - EKG Data -: EKG Interpreted by Ca EKG shows normal: sinus rhythm Rate: normal - EKG Data When compared to previous EKG there are: no significant change 07/17/19 22:11 EKG #1 shows a normal sinus rhythm, 89 bpm, normal axis, normal intervals, unremarkable EKG, not consistent with ST elevation myocardial infarction. EKG #2 is unchanged. Both EKGs are unchanged from prior EKG from May 2019. Neither EKG consistent with ST elevation myocardial infarction. - Radiology Data Radiology results: report reviewed, image reviewed X-ray of the chest is negative for acute disease Critical care attestation.: If time is entered above; I have spent that time in minutes in the direct care of this critically ill patient, excluding procedure time. ED Disposition Clinical Impression: Chest wall pain Disposition: DC-01 TO HOME OR SELFCARE Is pt being admited?: No Does the pt Need Aspirin: No Condition: Stable Instructions: Costochondritis (ED) Additional Instructions: Continue outpatient medications. Follow up with a primary care doctor or brick grader for recurrent chest wall pain within the next 3-5 days. Follow-up with your bariatric surgeon as scheduled. Recommend weight loss, physical activities as tolerated, and avoidance of food groups that are high in sugar and simple carbohydrates. Return to the emergency room right away with new, worsening or different symptoms not present on the initial emergency room evaluation. Prescriptions: Dicyclomine [Bentyl] 10 mg PO QID #14 capsule Promethazine [Phenergan] 25 mg PO Q8HR PRN #10 tab PRN Reason: Nausea Pantoprazole [Protonix TAB] 40 mg PO QDAY #30 tablet Referrals: LORETA CRANE MD [Primary Care Provider] - 3-5 Days ROBERT VILLAFANA MD [Staff Physician] - 3-5 Days AGUSTIN DEL ANGEL MD [Staff Physician] - 3-5 Days
[2019-07-17 22:23] LABS: Hematocrit 33.4 % (30.3-42.9); Hemoglobin 11.1 gm/dl (10.1-14.3); Mean Corpuscular HGB Conc 33 % (30-34); Mean Corpuscular Volume 88 fl (79-97); Platelet Count 330 K/mm3 (140-440); Red Blood Count 3.81 M/mm3 (3.65-5.03)
[2019-07-17 22:34] LABS: BUN/Creatinine Ratio 27; Blood Urea Nitrogen 24 mg/dL (7-17); Calcium 9.1 mg/dL (8.4-10.2); Hemolysis Index 6
[2019-07-17 22:57] LABS: Band Neutrophils # (Manual) 0.1 K/mm3; Basophils % (Manual) 0 % (0.0-1.8); Total Cells Counted 100
[2019-07-17 22:58] LABS: Anisocytosis 1+
== END 2019-07-17 22:35 | disposition home or self-care (01) ==
LOC: ED 20:55
DX: R07.89 Other chest pain (principal); I10 Essential (primary) hypertension; E11.9 Type 2 diabetes mellitus without complications; E66.01 Morbid (severe) obesity due to excess calories; Z68.43 Body mass index [BMI] 50.0-59.9, adult; J44.9 Chronic obstructive pulmonary disease, unspecified; F41.9 Anxiety disorder, unspecified; G43.909 Migraine, unspecified, not intractable, without status migrainosus; M94.0 Chondrocostal junction syndrome [Tietze]; Z79.899 Other long term (current) drug therapy; Z88.2 Allergy status to sulfonamides; Z88.8 Allergy status to other drugs, medicaments and biological substances; Z88.5 Allergy status to narcotic agent; Z88.0 Allergy status to penicillin; Z86.73 Personal history of transient ischemic attack (TIA), and cerebral infarction without residual deficits; Z98.890 Other specified postprocedural states
CPT/HCPCS: 36415; 71045; 80048; 84484; 85007; 85025; 93005; 93010; 99284; Q0169

== ENCOUNTER 2020-08-07 13:04 | Emergency (ER) | payer MEDICAID ==
[2020-08-07] MEDS ORDERED: ALBUTEROL 2.5 MG/3 ML NEBU IH ONE (13:56)
--- NOTE | 2020-08-07 15:18 | Emergency Department Report ---
ED Asthma HPI - General Chief Complaint: Dyspnea/Respdistress Stated Complaint: ASTHMA Time Seen by Provider: 08/07/20 13:55 Source: patient Mode of arrival: Wheelchair Limitations: No Limitations - History of Present Illness Initial Comments: 60-year-old obese Afro-[place]ian female past medical history of asthma presents emerge department complaining of asthma flareup that started prior to arrival, unknown the etiology with exception of her running out of her asthma medication. Ports no fever, chills, sweats no hemoptysis no hematemesis no hematochezia no palpitations no nausea vomiting. States that she took a coffee remedy to avert her asthma attack as she has done in the past and states that it was doing well but she still needed a refill of her inhaler. She reports no significant shortness of breath at this present time but is requesting a breathing treatment and medication refill. Severity: mild Context: ran out of meds Associated Symptoms: none - Related Data Current Asthma Therapy: inhaled bronchodilator Previous Rx's Medication Instructions Recorded Last Taken Type Albuterol Sulfate [Albuterol 0.63% 0.63 mg IH TID PRN #180 vial.neb 12/10/17 Unknown Rx NEBS] AtorvaSTATin 10 mg PO QHS #30 tablet 12/10/17 Unknown Rx Docusate Sodium [Colace CAP] 100 mg PO BID #60 capsule 12/10/17 Unknown Rx Ipratropium/Albuter (Nf) 2 puff IH QID #1 inha 12/10/17 Unknown Rx [Combivent Inhaler] Metoprolol [Lopressor TAB] 25 mg PO BID #60 tablet 12/10/17 Unknown Rx Promethazine [Phenergan] 25 mg PO Q6HR PRN #10 tab 05/29/19 Unknown Rx predniSONE [Deltasone] 20 mg PO QDAY #7 tab 06/19/19 Unknown Rx Dicyclomine [Bentyl] 10 mg PO QID #14 capsule 07/17/19 Unknown Rx Pantoprazole [Protonix TAB] 40 mg PO QDAY #30 tablet 07/17/19 Unknown Rx Promethazine [Phenergan] 25 mg PO Q8HR PRN #10 tab 07/17/19 Unknown Rx Albuterol Mdi (or & Nicu Only) 2 puff IH QID PRN #1 inhalation 08/07/20 Unknown Rx [ProAir HFA Inhaler] predniSONE [Deltasone] 50 mg PO QDAY #5 tab 08/07/20 Unknown Rx Allergies Allergy/AdvReac Type Severity Reaction Status Date / Time acetaminophen [From Percocet] Allergy Swelling Verified 12/23/17 18:04 metoclopramide HCl Allergy Swelling Verified 12/27/15 13:07 [From Reglan] nitroglycerin Allergy Hives Verified 04/26/18 10:59 ondansetron HCl [From Zofran] Allergy Swelling Verified 12/27/15 13:07 oxycodone [From Percocet] Allergy Swelling Verified 12/23/17 18:04 Penicillins Allergy Swelling Verified 12/27/15 13:07 prochlorperazine edisylate Allergy Swelling Verified 12/27/15 13:07 [From Compazine] prochlorperazine maleate Allergy Swelling Verified 12/27/15 13:07 [From Compazine] Sulfa (Sulfonamide Allergy Swelling Verified 12/27/15 13:07 Antibiotics) tramadol Allergy Swelling Verified 12/27/15 13:07 ED Review of Systems ROS: Stated complaint: ASTHMA Other details as noted in HPI Comment: All other systems reviewed and negative ED Past Medical Hx - Past Medical History Previous Medical History?: Yes Hx Hypertension: Yes Hx CVA: Yes (TIAs) Hx Congestive Heart Failure: Yes Hx Diabetes: No Hx Arthritis: Yes (spine) Hx Headaches / Migraines: Yes Hx Psychiatric Treatment: Yes (anxiety) Hx Asthma: Yes Hx COPD: Yes Additional medical history: vertigo, Obesity. lupus, C.diff. sarcoidosis. Subarachnoid hemorrhage. DDD WITH L5 BULGING DISK, DVT right leg - Surgical History Additional Surgical History: rt lung surgery BIOPSY 2004. x 5, Uterine Ablation - Social History Smoking Status: Never Smoker Substance Use Type: None - Medications Home Medications: Home Medications Medication Instructions Recorded Confirmed Last Taken Type Albuterol Sulfate [Albuterol 0.63% 0.63 mg IH TID PRN #180 vial.neb 12/10/17 04/28/18 Unknown Rx NEBS] AtorvaSTATin 10 mg PO QHS #30 tablet 12/10/17 04/28/18 Unknown Rx Docusate Sodium [Colace CAP] 100 mg PO BID #60 capsule 12/10/17 04/28/18 Unknown Rx Ipratropium/Albuter (Nf) 2 puff IH QID #1 inha 12/10/17 04/28/18 Unknown Rx [Combivent Inhaler] Metoprolol [Lopressor TAB] 25 mg PO BID #60 tablet 12/10/17 04/28/18 Unknown Rx Promethazine [Phenergan] 25 mg PO Q6HR PRN #10 tab 05/29/19 Unknown Rx predniSONE [Deltasone] 20 mg PO QDAY #7 tab 06/19/19 Unknown Rx Dicyclomine [Bentyl] 10 mg PO QID #14 capsule 07/17/19 Unknown Rx Pantoprazole [Protonix TAB] 40 mg PO QDAY #30 tablet 07/17/19 Unknown Rx Promethazine [Phenergan] 25 mg PO Q8HR PRN #10 tab 07/17/19 Unknown Rx Albuterol Mdi (or & Nicu Only) 2 puff IH QID PRN #1 inhalation 08/07/20 Unknown Rx [ProAir HFA Inhaler] predniSONE [Deltasone] 50 mg PO QDAY #5 tab 08/07/20 Unknown Rx ED Physical Exam - General Limitations: No Limitations General appearance: alert, in no apparent distress - Head Head exam: Present: atraumatic, normocephalic - Eye Eye exam: Present: normal appearance - ENT ENT exam: Present: mucous membranes moist - Neck Neck exam: Present: normal inspection - Respiratory Respiratory exam: Present: normal lung sounds bilaterally. Absent: respiratory distress, wheezes, rales, accessory muscle use, decreased breath sounds, prolonged expiratory - Cardiovascular Cardiovascular Exam: Present: regular rate, normal rhythm. Absent: systolic murmur, diastolic murmur, rubs, gallop - GI/Abdominal GI/Abdominal exam: Present: soft, normal bowel sounds. Absent: guarding, rebound, organomegaly, mass, pulsatile mass - Extremities Exam Extremities exam: Present: normal inspection, normal capillary refill. Absent: tenderness, pedal edema - Back Exam Back exam: Present: normal inspection. Absent: tenderness, CVA tenderness (R), CVA tenderness (L), muscle spasm, paraspinal tenderness - Neurological Exam Neurological exam: Present: alert, oriented X3, CN II-XII intact, normal gait - Psychiatric Psychiatric exam: Present: normal affect, normal mood - Skin Skin exam: Present: warm, dry, intact, normal color. Absent: rash ED Medical Decision Making - Medical Decision Making No altered mental status, saddle respirations, belly breathing or other signs of impending ventilatory failure. No intubations or recent admissions to the hospital for asthma. Unlikely pneumonia, CHF, COPD, GERD Workup Review include a chest x-ray which was normal she also received steroids and albuterol Therapies: Prednisone 50 mg PO. Albuterol nebulizer Reassessment: Patient improved with albuterol and ipratropium in less than 3 h ours. Disposition: Discharge home with return precautions. Advised to follow up with primary care physician within next 24-48 hours. Aside from this acute exacerbation patient has been well controlled on baseline home regimen. Rx short steroid course, albuterol, Singulair, Flovent Critical care attestation.: If time is entered above; I have spent that time in minutes in the direct care of this critically ill patient, excluding procedure time. ED Disposition Clinical Impression: Asthma Disposition: DC-01 TO HOME OR SELFCARE Is pt being admited?: No Does the pt Need Aspirin: No Condition: Stable Instructions: Asthma (ED), Reactive Airways Disease (ED) Prescriptions: predniSONE [Deltasone] 50 mg PO QDAY #5 tab Albuterol Mdi (or & Nicu Only) [ProAir HFA Inhaler] 2 puff IH QID PRN #1 inhalation PRN Reason: Shortness Of Breath Referrals: PRIMARY CARE, [Primary Care Provider] - 3-5 Days [facility] [Provider Group] - 3-5 Days
[2020-08-07] MEDS ORDERED: dexAMETHasone 4 MG/ML VIAL IM ONE (15:27)
[2020-08-07] MEDS ORDERED: diphenhydrAMINE 25 MG/10 ML ORAL LIQUID PO ONE (15:49)
== END 2020-08-07 15:43 | disposition home or self-care (01) ==
LOC: ED 13:04
DX: J45.909 Unspecified asthma, uncomplicated (principal); I11.0 Hypertensive heart disease with heart failure; I50.9 Heart failure, unspecified; M19.90 Unspecified osteoarthritis, unspecified site; G43.909 Migraine, unspecified, not intractable, without status migrainosus; F41.9 Anxiety disorder, unspecified; E66.9 Obesity, unspecified; Z86.73 Personal history of transient ischemic attack (TIA), and cerebral infarction without residual deficits; Z79.899 Other long term (current) drug therapy; Z88.8 Allergy status to other drugs, medicaments and biological substances; Z98.890 Other specified postprocedural states; Z68.43 Body mass index [BMI] 50.0-59.9, adult
CPT/HCPCS: 94640; 96372; 99282; J1100

== ENCOUNTER 2020-09-16 20:39 | Emergency (ER) | payer MEDICAID ==
[2020-09-16 21:21] LABS: Basophils % (Auto) 0.7 % (0.0-1.8); Eosinophils # (Auto) 0.1 K/mm3 (0.0-0.4); Eosinophils % (Auto) 1.7 % (0.0-4.3); Hematocrit 34.6 % (30.3-42.9); Hemoglobin 11.6 gm/dl (10.1-14.3); Lymphocytes # (Auto) 2.6 K/mm3 (1.2-5.4); Lymphocytes % (Auto) 39.2 % (13.4-35.0); Mean Corpuscular HGB Conc 33 % (30-34); Mean Corpuscular Volume 89 fl (79-97); Monocytes # (Auto) 0.6 K/mm3 (0.0-0.8); Monocytes % (Auto) 9.3 % (0.0-7.3); Platelet Count 240 K/mm3 (140-440); Red Blood Count 3.91 M/mm3 (3.65-5.03); Red Cell Distribution Width 14.2 % (13.2-15.2)
[2020-09-16 21:36] LABS: Alanine Aminotransferase 14 units/L (7-56); Albumin 3.8 g/dL (3.9-5); BUN/Creatinine Ratio 14; Blood Urea Nitrogen 14 mg/dL (7-17); Calcium 9.8 mg/dL (8.4-10.2); Hemolysis Index 50
[2020-09-17] MEDS ORDERED: dexAMETHasone 20 MG/5 ML VIAL IM ONE (00:04)
[2020-09-17] MEDS ORDERED: IBUPROFEN 800 MG TAB PO ONE (00:04)
[2020-09-17] MEDS ORDERED: diphenhydrAMINE 50 MG/ML VIAL IM ONE (00:06)
--- NOTE | 2020-09-17 00:10 | Emergency Department Report ---
ED General Adult HPI - General Chief complaint: Dyspnea/Respdistress Stated complaint: LUPAS FLARE Time Seen by Provider: 09/16/20 23:57 Source: patient Mode of arrival: Ambulatory Limitations: No Limitations - History of Present Illness Initial comments: The patient was evaluated in the emergency department for symptoms described in the history of present illness. He/she was evaluated in the context of the global COVID-19 pandemic, which necessitated consideration that the patient might be at risk for infection with the virus that causes COVID-19. Institutional protocols and algorithms that pertain to the evaluation of patients at risk for COVID-19 are in a state of rapid change based on information released by regulatory bodies including the CDC and federal and state organizations. These policies and algorithms were followed during the colby pierson's care in the emergency department. Please note that these policies, procedures and recommendations changed on a rapid basis. 60-year-old morbid obese female presents to the emergency room stating she is having a flareup of her lupus that started a day and a half ago. Patient admits to vomiting and chills and feels her right thigh is swollen today. Patient states is been using her inhaler and nebs. She states she has pain from her neck to her right side of back. Patient reports she is having difficulty ambulating. Patient has not taken anything for pain. Has multiple allergies of tramadol Percocet and oxycodone. Patient will be given ibuprofen 800 mg, dexamethasone 10 mg IM and Benadryl 50 mg IM for nausea. Patient be discharged home on ibuprofen prednisone 50 mg daily for the next 5 days and Phenergan. Patient is to follow-up with her special education inclusion teacher or primary care provider. Onset/Timin -: days(s) Location: neck, back, lower extremity (right side) Severity scale (0 -10): 10 Quality: sharp Consistency: constant Improves with: none Worsens with: movement Associated Symptoms: fever/chills (chills), nausea/vomiting (no vomiting). denies: chest pain, cough, loss of appetite, weakness Treatments Prior to Arrival: none - Related Data Previous Rx's Medication Instructions Recorded Last Taken Type Albuterol Sulfate [Albuterol 0.63% 0.63 mg IH TID PRN #180 vial.neb 12/10/17 Unknown Rx NEBS] AtorvaSTATin 10 mg PO QHS #30 tablet 12/10/17 Unknown Rx Docusate Sodium [Colace CAP] 100 mg PO BID #60 capsule 12/10/17 Unknown Rx Ipratropium/Albuter (Nf) 2 puff IH QID #1 inha 12/10/17 Unknown Rx [Combivent Inhaler] Metoprolol [Lopressor TAB] 25 mg PO BID #60 tablet 12/10/17 Unknown Rx Promethazine [Phenergan] 25 mg PO Q6HR PRN #10 tab 05/29/19 Unknown Rx predniSONE [Deltasone] 20 mg PO QDAY #7 tab 06/19/19 Unknown Rx Dicyclomine [Bentyl] 10 mg PO QID #14 capsule 07/17/19 Unknown Rx Pantoprazole [Protonix TAB] 40 mg PO QDAY #30 tablet 07/17/19 Unknown Rx Promethazine [Phenergan] 25 mg PO Q8HR PRN #10 tab 07/17/19 Unknown Rx Albuterol Mdi (or & Nicu Only) 2 puff IH QID PRN #1 inhalation 08/07/20 Unknown Rx [ProAir HFA Inhaler] Ibuprofen [Motrin 800 MG tab] 800 mg PO Q8HR PRN #30 tablet 09/17/20 Unknown Rx Promethazine [Phenergan] 25 mg PO Q8HR PRN #10 tab 09/17/20 Unknown Rx predniSONE [Deltasone] 50 mg PO QDAY #5 tab 09/17/20 Unknown Rx Allergies Allergy/AdvReac Type Severity Reaction Status Date / Time acetaminophen [From Percocet] Allergy Swelling Verified 12/23/17 18:04 metoclopramide HCl Allergy Swelling Verified 12/27/15 13:07 [From Reglan] nitroglycerin Allergy Hives Verified 04/26/18 10:59 ondansetron HCl [From Zofran] Allergy Swelling Verified 12/27/15 13:07 oxycodone [From Percocet] Allergy Swelling Verified 12/23/17 18:04 Penicillins Allergy Swelling Verified 12/27/15 13:07 prochlorperazine edisylate Allergy Swelling Verified 12/27/15 13:07 [From Compazine] prochlorperazine maleate Allergy Swelling Verified 12/27/15 13:07 [From Compazine] Sulfa (Sulfonamide Allergy Swelling Verified 12/27/15 13:07 Antibiotics) tramadol Allergy Swelling Verified 12/27/15 13:07 ED Review of Systems ROS: Stated complaint: LUPAS FLARE Other details as noted in HPI Comment: All other systems reviewed and negative ED Past Medical Hx - Past Medical History Previous Medical History?: Yes Hx Hypertension: Yes Hx CVA: Yes (TIAs) Hx Congestive Heart Failure: Yes Hx Diabetes: No Hx Arthritis: Yes (spine) Hx Headaches / Migraines: Yes Hx Psychiatric Treatment: Yes (anxiety) Hx Asthma: Yes Hx COPD: Yes Additional medical history: vertigo, Obesity. lupus, C.diff. sarcoidosis. Subarachnoid hemorrhage. DDD WITH L5 BULGING DISK, DVT right leg - Surgical History Past Surgical History?: Yes Additional Surgical History: rt lung surgery BIOPSY 2004. x 5, Uterine Ablation - Social History Smoking Status: Never Smoker Substance Use Type: None - Medications Home Medications: Home Medications Medication Instructions Recorded Confirmed Last Taken Type Albuterol Sulfate [Albuterol 0.63% 0.63 mg IH TID PRN #180 vial.neb 12/10/17 04/28/18 Unknown Rx NEBS] AtorvaSTATin 10 mg PO QHS #30 tablet 12/10/17 04/28/18 Unknown Rx Docusate Sodium [Colace CAP] 100 mg PO BID #60 capsule 12/10/17 04/28/18 Unknown Rx Ipratropium/Albuter (Nf) 2 puff IH QID #1 inha 12/10/17 04/28/18 Unknown Rx [Combivent Inhaler] Metoprolol [Lopressor TAB] 25 mg PO BID #60 tablet 12/10/17 04/28/18 Unknown Rx Promethazine [Phenergan] 25 mg PO Q6HR PRN #10 tab 05/29/19 Unknown Rx predniSONE [Deltasone] 20 mg PO QDAY #7 tab 06/19/19 Unknown Rx Dicyclomine [Bentyl] 10 mg PO QID #14 capsule 07/17/19 Unknown Rx Pantoprazole [Protonix TAB] 40 mg PO QDAY #30 tablet 07/17/19 Unknown Rx Promethazine [Phenergan] 25 mg PO Q8HR PRN #10 tab 07/17/19 Unknown Rx Albuterol Mdi (or & Nicu Only) 2 puff IH QID PRN #1 inhalation 08/07/20 Unknown Rx [ProAir HFA Inhaler] Ibuprofen [Motrin 800 MG tab] 800 mg PO Q8HR PRN #30 tablet 09/17/20 Unknown Rx Promethazine [Phenergan] 25 mg PO Q8HR PRN #10 tab 09/17/20 Unknown Rx predniSONE [Deltasone] 50 mg PO QDAY #5 tab 09/17/20 Unknown Rx ED Physical Exam - General Limitations: No Limitations General appearance: alert, in no apparent distress, in distress - Head Head exam: Present: atraumatic, normocephalic - Eye Eye exam: Present: normal appearance - ENT ENT exam: Present: mucous membranes moist - Neck Neck exam: Present: normal inspection, full ROM - Respiratory Respiratory exam: Absent: accessory muscle use - Cardiovascular Cardiovascular Exam: Present: regular rate, normal rhythm. Absent: systolic murmur, diastolic murmur, rubs, gallop - Expanded Lower Extremity Exam Right Upper Leg exam: Present: tenderness Knee exam: Present: tenderness Lower Leg exam: Present: normal inspection, full ROM Ankle exam: Present: normal inspection, full ROM Foot/Toe exam: Present: normal inspection, full ROM - Back Exam Back exam: Present: normal inspection, full ROM - Neurological Exam Neurological exam: Present: alert, oriented X3 - Psychiatric Psychiatric exam: Present: normal affect, normal mood - Skin Skin exam: Present: warm, dry, intact, normal color. Absent: rash ED Course Vital Signs 09/16/20 20:51 Temperature 98.0 F Pulse Rate 88 Respiratory 18 Rate Blood Pressure 121/66 O2 Sat by Pulse 95 Oximetry ED Medical Decision Making - Lab Data Result diagrams: 09/16/20 21:09 09/16/20 21:09 Laboratory Tests 09/16/20 09/16/20 21:09 21:09 WBC 6.7 RBC 3.91 Hgb 11.6 Hct 34.6 MCV 89 MCH 30 MCHC 33 RDW 14.2 Plt Count 240 Lymph % (Auto) 39.2 H [place] % (Auto) 9.3 H Eos % (Auto) 1.7 Baso % (Auto) 0.7 Lymph # (Auto) 2.6 [place] # (Auto) 0.6 Eos # (Auto) 0.1 Baso # (Auto) 0.0 Seg Neutrophils % 49.1 Seg Neutrophils # 3.3 Sodium 139 Potassium 4.1 Chloride 105.0 Carbon Dioxide 21 L Anion Gap 17 BUN 14 Creatinine 1.0 Estimated GFR > 60 BUN/Creatinine Ratio 14 Glucose 90 Calcium 9.8 Total Bilirubin 0.20 AST 23 ALT 14 Alkaline Phosphatase 86 Total Protein 7.6 Albumin 3.8 L Albumin/Globulin Ratio 1.0 - Medical Decision Making 60-year-old morbid obese female presents to the emergency room stating she is having a flareup of her lupus that started a day and a half ago. Patient admits to vomiting and chills and feels her right thigh is swollen today. Patient states is been using her inhaler and nebs. She states she has pain from her neck to her right side of back. Patient reports she is having difficulty ambulating. Patient has not taken anything for pain. Has multiple allergies of tramadol Percocet and oxycodone. Patient will be given ibuprofen 800 mg, dexamethasone 10 mg IM and Benadryl 50 mg IM for nausea. Patient be discharged home on ibuprofen prednisone 50 mg daily for the next 5 days and Phenergan. Patient is to follow-up with her special education inclusion teacher or primary care provider. Patient has multiple allergies to acetaminophen Percocet oxycodone Compazine Zofran and Reglan. Patient be given Benadryl dexamethasone and ibuprofen for pain management. Patient be discharged home on prednisone 50 mg p.o. daily for 5 days she can take the Phenergan for the nausea and what ever pain medication that she has taken in the past for her chronic pain and lupus. Patient is instructed to follow-up with her special education inclusion teacher and her primary care provider. Critical care attestation.: If time is entered above; I have spent that time in minutes in the direct care of this critically ill patient, excluding procedure time. ED Disposition Clinical Impression: Severely overweight, Lupus, Arthralgia Disposition: DC-01 TO HOME OR SELFCARE Is pt being admited?: No Does the pt Need Aspirin: No Condition: Stable Instructions: Chronic Pain (ED), Sarcoidosis (ED) Additional Instructions: Please complete the prednisone as prescribed. Phenergan as needed for nausea. He can take pain medication that he is taken in the past that has worked for you. Prescriptions: predniSONE [Deltasone] 50 mg PO QDAY #5 tab Ibuprofen [Motrin 800 MG tab] 800 mg PO Q8HR PRN #30 tablet PRN Reason: Pain , Severe (7-10) Promethazine [Phenergan] 25 mg PO Q8HR PRN #10 tab PRN Reason: Nausea Referrals: PRIMARY CARE, [Primary Care Provider] - 3-5 Days Your, primary care provider and special education inclusion teacher [Other] - 3-5 Days
[2020-09-17] MEDS ORDERED: HYDROmorphone 1 MG/1 ML INJ IM ONE (01:37)
[2020-09-17 03:10] VITALS: BP 118/78
== END 2020-09-17 03:11 | disposition home or self-care (01) ==
LOC: ED 20:39
DX: M32.9 Systemic lupus erythematosus, unspecified (principal); M54.2 Cervicalgia; M54.6 Pain in thoracic spine; M79.604 Pain in right leg; M79.601 Pain in right arm; I11.0 Hypertensive heart disease with heart failure; I50.9 Heart failure, unspecified; G43.909 Migraine, unspecified, not intractable, without status migrainosus; F41.9 Anxiety disorder, unspecified; J44.9 Chronic obstructive pulmonary disease, unspecified; E66.3 Overweight; Z68.43 Body mass index [BMI] 50.0-59.9, adult; Z98.890 Other specified postprocedural states; Z79.1 Long term (current) use of non-steroidal anti-inflammatories (NSAID); Z79.899 Other long term (current) drug therapy; Z88.8 Allergy status to other drugs, medicaments and biological substances
CPT/HCPCS: 36415; 80053; 85025; 96372; 99283; J1100; J1170; J1200

== ENCOUNTER 2020-09-19 22:02 | Observation (INO) | payer MEDICAID ==
--- NOTE | 2020-09-20 00:54 | XRay Report ---
CHEST 1 VIEW INDICATION / CLINICAL INFORMATION: Chest Pain. COMPARISON: 07/17/2019 FINDINGS: SUPPORT DEVICES: None. HEART / MEDIASTINUM: No significant abnormality. LUNGS / PLEURA: No significant pulmonary or pleural abnormality.. No pneumothorax. ADDITIONAL FINDINGS: No significant additional findings. IMPRESSION: 1. No acute findings. Signer Name: Harry Muir MD Signed: 09/20/2020 12:50 AM Workstation Name: [id number]
[2020-09-20 01:05] LABS: Basophils % (Auto) 0.2 % (0.0-1.8); Hemoglobin 11.8 gm/dl (10.1-14.3); Lymphocytes # (Auto) 1.3 K/mm3 (1.2-5.4); Lymphocytes % (Auto) 12.6 % (13.4-35.0); Mean Corpuscular HGB Conc 32 % (30-34); Mean Corpuscular Volume 89 fl (79-97); Monocytes # (Auto) 0.3 K/mm3 (0.0-0.8); Platelet Count 266 K/mm3 (140-440); Red Blood Count 4.15 M/mm3 (3.65-5.03); Red Cell Distribution Width 14.6 % (13.2-15.2)
[2020-09-20 01:27] LABS: BUN/Creatinine Ratio 20; Blood Urea Nitrogen 22 mg/dL (7-17); Hemolysis Index 4
[2020-09-20] MEDS ORDERED: diphenhydrAMINE 50 MG/ML VIAL IM ONE (06:05)
[2020-09-20] MEDS ORDERED: PROMETHAZINE 25 MG TAB PO ONE (06:08)
--- NOTE | 2020-09-20 07:42 | Emergency Department Report ---
<JJ JUAN - Last Filed: 09/20/20 11:44> ED Chest Pain HPI - General Chief Complaint: Chest Pain Stated Complaint: LUPUS FLARED UP/CHEST PAIN Time Seen by Provider: 09/20/20 07:28 - Related Data Home Medications Medication Instructions Recorded Confirmed Last Taken Meclizine [Antivert] 25 mg PO TID PRN 09/20/20 09/20/20 Unknown Prednisone [predniSONE (Karl) ER 50 mg PO QDAY 09/20/20 09/20/20 Unknown TAB] Promethazine [Phenergan] 25 mg PO Q8HR 09/20/20 09/20/20 Unknown dilTIAZem [CarDIZEM] 30 mg PO BID 09/20/20 09/20/20 Unknown hydroCHLOROthiazide [HCTZ] 25 mg PO QDAY 09/20/20 09/20/20 Unknown Allergies Allergy/AdvReac Type Severity Reaction Status Date / Time acetaminophen [From Percocet] Allergy Swelling Verified 12/23/17 18:04 metoclopramide HCl Allergy Swelling Verified 12/27/15 13:07 [From Reglan] nitroglycerin Allergy Hives Verified 04/26/18 10:59 ondansetron HCl [From Zofran] Allergy Swelling Verified 12/27/15 13:07 oxycodone [From Percocet] Allergy Swelling Verified 12/23/17 18:04 Penicillins Allergy Swelling Verified 12/27/15 13:07 prochlorperazine edisylate Allergy Swelling Verified 12/27/15 13:07 [From Compazine] prochlorperazine maleate Allergy Swelling Verified 12/27/15 13:07 [From Compazine] Sulfa (Sulfonamide Allergy Swelling Verified 12/27/15 13:07 Antibiotics) tramadol Allergy Swelling Verified 12/27/15 13:07 ED Past Medical Hx - Medications Home Medications: Home Medications Medication Instructions Recorded Confirmed Last Taken Type Meclizine [Antivert] 25 mg PO TID PRN 09/20/20 09/20/20 Unknown History Prednisone [predniSONE (Karl) ER 50 mg PO QDAY 09/20/20 09/20/20 Unknown History TAB] Promethazine [Phenergan] 25 mg PO Q8HR 09/20/20 09/20/20 Unknown History dilTIAZem [CarDIZEM] 30 mg PO BID 09/20/20 09/20/20 Unknown History hydroCHLOROthiazide [HCTZ] 25 mg PO QDAY 09/20/20 09/20/20 Unknown History ED Medical Decision Making - Lab Data Result diagrams: 09/20/20 00:22 09/20/20 00:22 ED Disposition Clinical Impression: Exacerbation of systemic lupus Chest pain Qualifiers: Chest pain type: unspecified Qualified Code(s): R07.9 - Chest pain, unspecified Disposition: -09 OP ADMIT IP TO THIS HOSP Condition: Stable <MARIANA WALKER - Last Filed: 09/20/20 13:02> ED Chest Pain HPI - General Source: patient Mode of arrival: Ambulatory Limitations: No Limitations - History of Present Illness Initial Comments: This is a 60-year-old female who states that she has had a flareup of her lupus for the past 4 days. She states this is the second time she has gone to the emergency department for the same. She was placed on steroids and given analgesia which she states was ineffective. For the past 2 days she states that she has "had an elephant sitting on her chest". She states that the pain is nonradiating and nonpleuritic. He does describe some shortness of breath. Remarkably she states that she has had no cardiac work-up in the past to include stress testing echocardiogram or cardiac catheterization. Previous admission on 2018 apparently documents to the contrary. [facility]. 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 The discharge summary record indicates: Hospital course: 58-year-old woman with a history of obesity, hypertension who presented to the hospital with 2 days of abdominal discomfort and repeated vomiting, culminating in chest pain that occurred at the end of 2 days of bed vomiting. There are no associated symptoms, and the chest pain was nonexertional. Cardiac consultation was requested for chest pain and assessment. ECG is normal sinus rhythm, normal ECG. Chest x-ray was reported normal. Patient has had prior cardiac workup including an echocardiogram several months ago that reported left ventricular ejection fraction 50-55%, and a thallium stress test about a year ago that was negative. CXR and CT abdomen/pelvis was unremarkable. Cardiology recommended medical management. Then she stated that she might feel suicidal if she was discharge, but then later she stated she has no plan for suicide and due to stress she stated something like that but her social issue now has taken care off. She feels safe for discharge and was then discharged home in stable condition at her sister's place. Thus, apparently she has had some cardiac work-up in the past to include a stress thallium it appears in 2018 had an echocardiogram which indicates a normal ejection fraction. Patient tells me that her right leg has been swollen in her hip and her calf area. She states that she had a pulmonary embolism in the past and was on Coumadin. She states that the source of the pulmonary embolism was unclear. MD Complaint: chest pain -: Gradual, days(s) Pain Location: substernal Pain Radiation: none Severity: moderate Quality: heaviness Consistency: constant Improves With: nothing Worsens With: nothing re: dyspnea Other Symptoms: denies: cough, fever, syncope Treatments Prior to Arrival: none - Related Data On Oral Contraceptives: No Heart Score - HEART Score History: Highly suspicious EKG: Non-specific Age: 45-65 Risk factors: > 3 risk factors or hx of atherosclerotic disease Troponin: < normal limit HEART Score: 6 - Critical Actions Critical Actions: 4-6 pts:12-16.6% risk of adverse cardiac event. Should be admitted ED Review of Systems ROS: Stated complaint: LUPUS FLARED UP/CHEST PAIN Other details as noted in HPI Constitutional: denies: chills, fever Eyes: denies: eye pain, eye discharge, vision change ENT: denies: ear pain, throat pain Respiratory: shortness of breath. denies: cough, wheezing Cardiovascular: chest pain. denies: palpitations Endocrine: no symptoms reported Gastrointestinal: denies: abdominal pain, nausea, diarrhea Genitourinary: denies: urgency, dysuria, discharge Musculoskeletal: as per HPI, joint swelling, arthralgia, other. denies: back pain Skin: denies: rash, lesions Neurological: denies: headache, weakness, paresthesias Psychiatric: denies: anxiety, depression Hematological/Lymphatic: denies: easy bleeding, easy bruising ED Past Medical Hx - Past Medical History Hx Hypertension: Yes Hx CVA: Yes (TIAs) Hx Congestive Heart Failure: Yes Hx Diabetes: No Hx Arthritis: Yes (spine) Hx Headaches / Migraines: Yes Hx Psychiatric Treatment: Yes (anxiety) Hx Asthma: Yes Hx COPD: Yes Additional medical history: vertigo, Obesity. lupus, C.diff. sarcoidosis. Subarachnoid hemorrhage. DDD WITH L5 BULGING DISK, DVT right leg - Surgical History Additional Surgical History: rt lung surgery BIOPSY 2005. x 5, Uterine Ablation. States prior pulmonary embolism - Social History Smoking Status: Never Smoker Substance Use Type: None ED Physical Exam - General Limitations: Physical Limitation General appearance: alert, in no apparent distress, obese - Head Head exam: Present: atraumatic, normocephalic - Eye Eye exam: Present: normal appearance. Absent: scleral icterus - ENT ENT exam: Present: mucous membranes moist - Neck Neck exam: Present: normal inspection. Absent: meningismus - Respiratory Respiratory exam: Present: normal lung sounds bilaterally. Absent: respiratory distress - Cardiovascular Cardiovascular Exam: Present: regular rate, normal rhythm. Absent: systolic murmur, diastolic murmur, rubs, gallop - GI/Abdominal GI/Abdominal exam: Present: soft, normal bowel sounds. Absent: distended, tenderness, guarding, rebound - Extremities Exam Extremities exam: Present: normal inspection, other (Patient does appear to have an area of soft tissue swelling of her lateral thigh and lower leg). Absent: calf tenderness - Back Exam Back exam: Present: normal inspection - Neurological Exam Neurological exam: Present: alert, oriented X3, CN II-XII intact. Absent: motor sensory deficit - Psychiatric Psychiatric exam: Present: normal affect, normal mood - Skin Skin exam: Present: warm, dry, intact, normal color. Absent: rash ED Course Vital Signs 09/19/20 23:53 Temperature 97.8 F Pulse Rate 85 Respiratory 17 Rate Blood Pressure 152/78 O2 Sat by Pulse 97 Oximetry - Reevaluation(s) Reevaluation #1: Patient was admitted by the hospitalist service for further care and evaluation prior to completion of multiple studies. 09/20/20 13:01 CEDRICK score - Cedrick Score Age > 65: (0) No Aspirin use within the Past 7 Days: (1) Yes 3 or more CAD Risk Factors: (1) Yes 2 or more Angina events in past 24 hrs: (1) Yes Known CAD with more than 50% Stenosis: (0) No Elevated Cardiac Markers: (0) No ST Deviation Greater than 0.5mm: (0) No CEDRICK Score: 3 ED Medical Decision Making - Lab Data Result diagrams: 09/20/20 00:22 09/20/20 00:22 Laboratory Results - last 24 hr 09/20/20 09/20/20 09/20/20 00:22 00:22 03:33 WBC 10.2 RBC 4.15 Hgb 11.8 Hct 37.0 MCV 89 MCH 29 MCHC 32 RDW 14.6 Plt Count 266 Lymph % (Auto) 12.6 L [place] % (Auto) 3.0 Eos % (Auto) 0.0 Baso % (Auto) 0.2 Lymph # (Auto) 1.3 [place] # (Auto) 0.3 Eos # (Auto) 0.0 Baso # (Auto) 0.0 Seg Neutrophils % 84.2 H Seg Neutrophils # 8.6 H Sodium 141 Potassium 3.7 Chloride 104.4 Carbon Dioxide 20 L Anion Gap 20 BUN 22 H Creatinine 1.1 Estimated GFR > 60 BUN/Creatinine Ratio 20 Glucose 126 H Calcium 10.0 Troponin T < 0.010 < 0.010 09/20/20 05:40 WBC RBC Hgb Hct MCV MCH MCHC RDW Plt Count Lymph % (Auto) [place] % (Auto) Eos % (Auto) Baso % (Auto) Lymph # (Auto) [place] # (Auto) Eos # (Auto) Baso # (Auto) Seg Neutrophils % Seg Neutrophils # Sodium Potassium Chloride Carbon Dioxide Anion Gap BUN Creatinine Estimated GFR BUN/Creatinine Ratio Glucose Calcium Troponin T < 0.010 Laboratory Results - last 24 hr 09/20/20 09/20/20 09/20/20 00:22 00:22 03:33 WBC 10.2 RBC 4.15 Hgb 11.8 Hct 37.0 MCV 89 MCH 29 MCHC 32 RDW 14.6 Plt Count 266 Lymph % (Auto) 12.6 L [place] % (Auto) 3.0 Eos % (Auto) 0.0 Baso % (Auto) 0.2 Lymph # (Auto) 1.3 [place] # (Auto) 0.3 Eos # (Auto) 0.0 Baso # (Auto) 0.0 Seg Neutrophils % 84.2 H Seg Neutrophils # 8.6 H Sodium 141 Potassium 3.7 Chloride 104.4 Carbon Dioxide 20 L Anion Gap 20 BUN 22 H Creatinine 1.1 Estimated GFR > 60 BUN/Creatinine Ratio 20 Glucose 126 H Calcium 10.0 Troponin T < 0.010 < 0.010 09/20/20 05:40 WBC RBC Hgb Hct MCV MCH MCHC RDW Plt Count Lymph % (Auto) [place] % (Auto) Eos % (Auto) Baso % (Auto) Lymph # (Auto) [place] # (Auto) Eos # (Auto) Baso # (Auto) Seg Neutrophils % Seg Neutrophils # Sodium Potassium Chloride Carbon Dioxide Anion Gap BUN Creatinine Estimated GFR BUN/Creatinine Ratio Glucose Calcium Troponin T < 0.010 - EKG Data -: EKG Interpreted by Me EKG shows normal: sinus rhythm, axis, intervals, QRS complexes, ST-T waves Rate: normal - EKG Data Interpretation: other (Biatrial abnormality) - Radiology Data Radiology results: report reviewed Chest x-ray, VQ scan, lower extremity Doppler, no significant findings Critical care attestation.: If time is entered above; I have spent that time in minutes in the direct care of this critically ill patient, excluding procedure time. ED Disposition Is pt being admited?: Yes Does the pt Need Aspirin: Yes Time of Disposition: 13:02
[2020-09-20] MEDS ORDERED: MORPHINE 2 MG/1 ML INJ IV ONE (08:18)
[2020-09-20] MEDS ORDERED: diphenhydrAMINE 50 MG/ML VIAL ONE (09:07)
[2020-09-20] MEDS ORDERED: diphenhydrAMINE 50 MG/ML VIAL IV ONE ×2 (09:10→10:52)
--- NOTE | 2020-09-20 09:40 | Nuclear Medicine Report ---
NUCLEAR MEDICINE PERFUSION LUNG SCAN INDICATION / CLINICAL INFORMATION: CP h/o PE. TECHNIQUE: 5.5 mCi of Tc-99m MAA were given by IV. COMPARISON: Chest radiograph dated September 19, 2020. FINDINGS: PERFUSION: No significant perfusion defects. ADDITIONAL FINDINGS: None. IMPRESSION: 1. Low probability for pulmonary embolism. Signer Name: Jay De Luna MD Signed: 09/20/2020 9:35 AM Workstation Name: [id number]
[2020-09-20] MEDS ORDERED: HYDROmorphone 1 MG/1 ML INJ ONE ×2 (10:41→15:24)
[2020-09-20] MEDS ORDERED: ONDANSETRON 4 MG/2 ML INJ ONE (10:41)
[2020-09-20] MEDS ORDERED: HYDROmorphone 1 MG/1 ML INJ IV ONE (10:52)
[2020-09-20] MEDS ORDERED: ONDANSETRON 4 MG/2 ML INJ IV ONE (10:55)
[2020-09-20] MEDS ORDERED: ONDANSETRON 4 MG/2 ML INJ IV NR (11:00)
--- NOTE | 2020-09-20 11:21 | Vascular Lab Report ---
DUPLEX DOPPLER LOWER EXTREMITY VEINS, RIGHT INDICATION / CLINICAL INFORMATION: Right leg pain and swelling. TECHNIQUE: Duplex doppler imaging was performed through the veins of the right lower extremity using venous comp ression and other maneuvers. COMPARISON: Right lower extremity venous Doppler from 06/14/2019. FINDINGS: RIGHT COMMON FEMORAL VEIN: Negative. RIGHT FEMORAL VEIN: Negative. RIGHT POPLITEAL VEIN: Negative. RIGHT CALF VEINS: Negative. ADDITIONAL FINDINGS: A popliteal cyst is seen measuring 1.9 x 0.8 cm with adjacent mild edema. IMPRESSION: 1. No sonographic evidence for DVT in the right lower extremity. 2. Popliteal cyst as above with adjacent mild edema. Signer Name: Shad Peacock MD Signed: 09/20/2020 11:17 AM Workstation Name: [id number]
--- NOTE | 2020-09-20 11:30 | History and Physical Report ---
History of Present Illness Date of examination: 09/20/20 Date of admission: 09/20/2020 Chief complaint: Lupus flareup/atypical chest pain History of present illness: Very pleasant 60-year-old -Citizen Of [place] obese female patient with multiple medical problems, including lupus ,sarcoidosis, COPD, hypertension and diabetes mellitus presented to the emergency room generalized body pains including chest pain intermittently for the last 4 days, worse since yesterday. Patient had negative stress test about 3 4 years ago. Patient grades her chest pain between 7-8/ 10 at its peak at time of my evaluation about 4-5/10 Complains of mild nausea reports that she vomited once, had mild intermittent shortness of breath. No orthopnea or paroxysmal nocturnal dyspnea Denies headache dizziness weakness numbness Denies fever or urinary symptoms On initial work-up in the emergency room, cardiac enzymes x2 negative, Chest x- ray no acute abnormalities noted lower extremity venous Doppler negative for DVT VQ scan negative for low probability for PE patient complains of generalized weakness Past History Past Medical History: COPD, diabetes, heart failure, hypertension, sarcoidosis, other (Lupus, vertigo, anxiety) Past Surgical History: (X5), Other (Right lung biopsy 2004, anxiety disorder, bronchial asthma) Social history: denies: smoking, alcohol abuse, prescription drug abuse Family history: hypertension Medications and Allergies Allergies Allergy/AdvReac Type Severity Reaction Status Date / Time acetaminophen [From Percocet] Allergy Swelling Verified 12/23/17 18:04 metoclopramide HCl Allergy Swelling Verified 12/27/15 13:07 [From Reglan] nitroglycerin Allergy Hives Verified 04/26/18 10:59 ondansetron HCl [From Zofran] Allergy Swelling Verified 12/27/15 13:07 oxycodone [From Percocet] Allergy Swelling Verified 12/23/17 18:04 Penicillins Allergy Swelling Verified 12/27/15 13:07 prochlorperazine edisylate Allergy Swelling Verified 12/27/15 13:07 [From Compazine] prochlorperazine maleate Allergy Swelling Verified 12/27/15 13:07 [From Compazine] Sulfa (Sulfonamide Allergy Swelling Verified 12/27/15 13:07 Antibiotics) tramadol Allergy Swelling Verified 12/27/15 13:07 Home Medications Medication Instructions Recorded Confirmed Last Taken Type Meclizine [Antivert] 25 mg PO TID PRN 09/20/20 09/20/20 Unknown History Prednisone [predniSONE (Karl) ER 50 mg PO QDAY 09/20/20 09/20/20 Unknown History TAB] Promethazine [Phenergan] 25 mg PO Q8HR 09/20/20 09/20/20 Unknown History dilTIAZem [CarDIZEM] 30 mg PO BID 09/20/20 09/20/20 Unknown History hydroCHLOROthiazide [HCTZ] 25 mg PO QDAY 09/20/20 09/20/20 Unknown History Review of Systems Constitutional: weakness, no weight loss, no weight gain, no fever, no chills Ears, nose, mouth and throat: no nasal congestion, no nasal discharge Cardiovascular: chest pain, shortness of breath, no orthopnea, no palpitations, no edema, no paroxysmal nocturnal dyspnea Respiratory: no cough, no hemoptysis Gastrointestinal: nausea, no abdominal pain, no vomiting, no diarrhea Genitourinary Female: no flank pain, no dysuria Musculoskeletal: no myalgias, no arthritis Integumentary: no rash, no lesions Neurological: no weakness, no parathesias, no numbness, no seizures, no syncope Psychiatric: no anxiety, no depression Endocrine: no cold intolerance, no heat intolerance Hematologic/Lymphatic: no easy bruising, no easy bleeding Allergic/Immunologic: no urticaria, no allergic rhinitis Exam - Constitutional Vitals: Temp Pulse Resp BP Pulse Ox 97.8 F 85 17 152/78 97 09/19/20 23:53 09/19/20 23:53 09/19/20 23:53 09/19/20 23:53 09/19/20 23:53 General appearance: Present: mild distress, obese - EENT Eyes: Present: PERRL, EOM intact - Neck Neck: Present: supple, normal ROM - Respiratory Respiratory effort: normal Respiratory: bilateral: diminished, negative: rales, rhonchi, wheezing - Cardiovascular Rhythm: regular Heart Sounds: Present: S1 & S2 - Extremities Extremities: no ischemia, No edema - Abdominal General gastrointestinal: Present: soft, non-tender, non-distended, normal bowel sounds - Integumentary Integumentary: Present: clear, warm - Musculoskeletal Musculoskeletal: strength equal bilaterally, generalized weakness - Psychiatric Psychiatric: appropriate mood/affect, cooperative - Neurologic Neurologic: moves all extremities HEART Score - HEART Score Troponin: Troponin T < 0.010 ng/mL (0.00-0.029) 09/20/20 05:40 Results - Labs CBC & Chem 7: 09/20/20 00:22 09/20/20 00:22 Labs: Abnormal lab results 09/20/20 09/20/20 Range/Units 00:22 00:22 Lymph % (Auto) 12.6 L (13.4-35.0) % Seg Neutrophils % 84.2 H (40.0-70.0) % Seg Neutrophils # 8.6 H (1.8-7.7) K/mm3 Carbon Dioxide 20 L (22-30) mmol/L BUN 22 H (7-17) mg/dL Glucose 126 H (65-100) mg/dL Assessment and Plan --Atypical chest pain; Probably noncardiac, patient has lupus flareup Serial cardiac enzymes, aspirin beta-blockers SOREN inhibitors If patient continues to have chest pain, will request for stress test And cardiology consult if needed --Gastroesophageal reflux disease[GERD] Probably the cause of atypical chest pain Protonix, if no improvement patient may need outpatient GI evaluation upon discharge --Lupus flareup; Steroids, supportive care Patient will 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
--- NOTE | 2020-09-20 11:36 | History and Physical Report ---
History of Present Illness Date of examination: 09/20/20 Date of admission: 09/20/2020 Medications and Allergies Allergies Allergy/AdvReac Type Severity Reaction Status Date / Time acetaminophen [From Percocet] Allergy Swelling Verified 12/23/17 18:04 metoclopramide HCl Allergy Swelling Verified 12/27/15 13:07 [From Reglan] nitroglycerin Allergy Hives Verified 04/26/18 10:59 ondansetron HCl [From Zofran] Allergy Swelling Verified 12/27/15 13:07 oxycodone [From Percocet] Allergy Swelling Verified 12/23/17 18:04 Penicillins Allergy Swelling Verified 12/27/15 13:07 prochlorperazine edisylate Allergy Swelling Verified 12/27/15 13:07 [From Compazine] prochlorperazine maleate Allergy Swelling Verified 12/27/15 13:07 [From Compazine] Sulfa (Sulfonamide Allergy Swelling Verified 12/27/15 13:07 Antibiotics) tramadol Allergy Swelling Verified 12/27/15 13:07 Home Medications Medication Instructions Recorded Confirmed Last Taken Type Meclizine [Antivert] 25 mg PO TID PRN 09/20/20 09/20/20 Unknown History Prednisone [predniSONE (Karl) ER 50 mg PO QDAY 09/20/20 09/20/20 Unknown History TAB] Promethazine [Phenergan] 25 mg PO Q8HR 09/20/20 09/20/20 Unknown History dilTIAZem [CarDIZEM] 30 mg PO BID 09/20/20 09/20/20 Unknown History hydroCHLOROthiazide [HCTZ] 25 mg PO QDAY 09/20/20 09/20/20 Unknown History Exam - Constitutional Vitals: Temp Pulse Resp BP Pulse Ox 97.8 F 85 17 152/78 97 09/19/20 23:53 09/19/20 23:53 09/19/20 23:53 09/19/20 23:53 09/19/20 23:53 HEART Score - HEART Score Troponin: Troponin T < 0.010 ng/mL (0.00-0.029) 09/20/20 05:40 Results - Labs CBC & Chem 7: 09/20/20 00:22 09/20/20 00:22 Labs: Abnormal lab results 10/21/20 10/21/20 Range/Units 00:22 00:22 Lymph % (Auto) 12.6 L (13.4-35.0) % Seg Neutrophils % 84.2 H (40.0-70.0) % Seg Neutrophils # 8.6 H (1.8-7.7) K/mm3 Carbon Dioxide 20 L (22-30) mmol/L BUN 22 H (7-17) mg/dL Glucose 126 H (65-100) mg/dL
[2020-09-20] MEDS: HYDROmorphone 1 MG/1 ML INJ IV PRN ×2 (15:53→21:29)
[2020-09-20] MEDS: METOPROLOL TARTRATE 25 MG TAB PO SCH (21:28)
[2020-09-20] MEDS: dilTIAZem 30 MG TAB PO SCH (21:28)
[2020-09-20] MEDS: diphenhydrAMINE 25 MG CAP PO PRN (21:28)
[2020-09-20] MEDS: ALPRAZolam 1 MG TAB PO PRN (23:26)
[2020-09-21] MEDS: HYDROmorphone 1 MG/1 ML INJ IV PRN ×3 (02:36→14:30)
[2020-09-21] MEDS: diphenhydrAMINE 25 MG CAP PO PRN (02:36)
[2020-09-21] MEDS: ALPRAZolam 1 MG TAB PO PRN ×2 (06:39→16:37)
[2020-09-21] MEDS: dilTIAZem 30 MG TAB PO SCH (09:23)
[2020-09-21] MEDS: METOPROLOL TARTRATE 25 MG TAB PO SCH (09:24)
[2020-09-21] MEDS ORDERED: LISINOPRIL 5 MG TAB PO SCH (10:00)
[2020-09-21] MEDS ORDERED: hydroCHLOROthiazide 25 MG TAB PO SCH (10:00)
[2020-09-21] MEDS ORDERED: predniSONE 50 MG TAB PO SCH (10:00)
[2020-09-21] MEDS ORDERED: ASPIRIN 325 MG TAB PO SCH (10:00)
[2020-09-21] MEDS ORDERED: ENOXAPARIN 40 MG/0.4 ML INJ SUB-Q SCH (10:00)
--- NOTE | 2020-09-21 15:19 | XRay Report ---
RIGHT KNEE 3 VIEWS INDICATION / CLINICAL INFORMATION: MAIN. COMPARISON: None available. FINDINGS: Advanced degenerative change in the patellofemoral joint with moderate medial and lateral degenerativ e change. No other significant skeletal abnormality Signer Name: Karan Winchester MD FACShan Signed: 09/21/2020 3:15 PM Workstation Name: [id number]
--- NOTE | 2020-09-21 15:57 | Discharge Summary ---
Providers - Providers Date of Admission: 09/20/20 11:37 Date of discharge: 09/21/20 Attending physician: JJ JUAN Primary care physician: SNOW RANGER Hospitalization Condition: Stable Disposition: DC-01 TO HOME OR SELFCARE Time spent for discharge: 32 min Core Measure Documentation - Palliative Care Palliative Care/ Comfort Measures: Not Applicable - Core Measures Any of the following diagnoses?: none Exam - Constitutional Vitals: Temp Pulse Resp BP Pulse Ox 97.7 F 67 18 124/66 96 09/21/20 12:04 09/21/20 12:04 09/21/20 12:04 09/21/20 12:04 09/21/20 12:04 General appearance: Present: no acute distress, well-nourished, obese - EENT Eyes: Present: PERRL, EOM intact - Neck Neck: Present: supple, normal ROM - Respiratory Respiratory effort: normal Respiratory: bilateral: diminished, negative: rales, rhonchi, wheezing - Cardiovascular Rhythm: regular Heart Sounds: Present: S1 & S2 - Extremities Extremities: no ischemia, No edema - Abdominal General gastrointestinal: Present: soft, non-tender, non-distended, normal bowel sounds - Integumentary Integumentary: Present: clear, warm - Musculoskeletal Musculoskeletal: strength equal bilaterally - Psychiatric Psychiatric: appropriate mood/affect, cooperative - Neurologic Neurologic: CNII-XII intact, moves all extremities Plan Activity: advance as tolerated, fall precautions Diet: other (Cardiac diet) Additional Instructions: Ambulate as tolerated. If you continue to have knee pain see private orthopedic surgeon Dr. Miller. If you have worsening symptoms contact MD or go to nearest emergency room Follow up with: MARK ZEPEDA MD [Primary Care Provider] - 3-5 Days CARMINA MILLER MD [Staff Physician] - 14 Days Prescriptions: dilTIAZem [Cardizem] 30 mg PO BID #60 HYDROmorphone [Dilaudid] 1 mg PO BID PRN #10 tablet PRN Reason: Pain , Severe (7-10) hydroCHLOROthiazide [HCTZ] 25 mg PO QDAY #30 Metoprolol [Lopressor TAB] 12.5 mg PO BID #60 tablet Prednisone [predniSONE (Karl) ER TAB] 50 mg PO QDAY #14 lisinopriL [Zestril TAB] 5 mg PO QDAY #30 tablet
[2020-09-21 20:28] VITALS: BP 111/68
== END 2020-09-21 21:00 | disposition home or self-care (01) ==
LOC: ED 22:02 → 4A 09-20 11:37
PROVIDERS: ADMIT Internal Medicine; ATTEND Internal Medicine
DX: R07.89 Other chest pain (principal); K21.9 Gastro-esophageal reflux disease without esophagitis; M32.9 Systemic lupus erythematosus, unspecified; I11.0 Hypertensive heart disease with heart failure; I50.9 Heart failure, unspecified; E11.9 Type 2 diabetes mellitus without complications; E66.01 Morbid (severe) obesity due to excess calories; D86.9 Sarcoidosis, unspecified; G43.909 Migraine, unspecified, not intractable, without status migrainosus; J44.9 Chronic obstructive pulmonary disease, unspecified; M19.90 Unspecified osteoarthritis, unspecified site; R42 Dizziness and giddiness; F41.9 Anxiety disorder, unspecified; M51.36 Other intervertebral disc degeneration, lumbar region; Z98.891 History of uterine scar from previous surgery; Z86.73 Personal history of transient ischemic attack (TIA), and cerebral infarction without residual deficits; Z86.718 Personal history of other venous thrombosis and embolism; Z98.890 Other specified postprocedural states; Z86.711 Personal history of pulmonary embolism; Z68.43 Body mass index [BMI] 50.0-59.9, adult
CPT/HCPCS: 36415; 71045; 73562; 78580; 80048; 84484; 85025; 93005; 93971; 96372; 96374; 96375; 96376; 99285; A9540; G0378; J1170; J1200; J1650; J2270; J2405; J7512; Q0169

== ENCOUNTER 2020-09-21 20:01 | Emergency (ER) | payer MEDICAID ==
[2020-09-21 21:08] VITALS: BP 123/58
== END 2020-09-22 02:00 | disposition left against medical advice (07) ==
LOC: ED 20:01
DX: M32.9 Systemic lupus erythematosus, unspecified (principal); Z53.21 Procedure and treatment not carried out due to patient leaving prior to being seen by health care provider

== ENCOUNTER 2020-10-15 03:05 | Emergency (ER) | payer MEDICAID ==
--- NOTE | 2020-10-15 09:59 | Emergency Department Report ---
ED General Adult HPI - General Chief complaint: Pain General Stated complaint: LUPUS PUI?: No Time Seen by Provider: 10/15/20 09:40 Source: patient, RN notes reviewed, old records reviewed Mode of arrival: Ambulatory Limitations: Physical Limitation - History of Present Illness Initial comments: The patient was evaluated in the emergency department for symptoms described in the history of present illness. He/she was evaluated in the context of the global COVID-19 pandemic, which necessitated consideration that the patient m ight be at risk for infection with the virus that causes COVID-19. Institutional protocols and algorithms that pertain to the evaluation of patients at risk for COVID-19 are in a state of rapid change based on information released by regulatory bodies including the CDC and federal and state organizations. These policies and algorithms were followed during the patient's care in the emergency department. Please note that these policies, procedures and recommendations changed on a rapid basis. During the history and physical examination, I am chaperoned by nurse Emerson Rodgers This is a 60-year-old female. I have evaluated her in the past. 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 Her past medical history includes morbid obesity, sarcoid, hypertension, COPD, diabetes, pulmonary hypertension. She is not on home oxygen. She also does not have a nocturnal CPAP. Patient endorses a history of lupus. However it is unclear where exactly this diagnosis was made. She had a negative CHARMAINE screen at this hospital. She is not able to tell me definitively where this diagnosis was established. She presents to the ER with a complaint of "lupus flare", right lower quadrant abdominal pain, dysuria, and nontraumatic proximal right thigh pain and swelling. The symptoms have been present for 2 days. She indicates everything started at the same time. No headache, neck pain, chest pain. Patient denies fever, chills, exposure to Covid, loss of taste, loss of smell. She endorses complete body pain. She is not currently taking steroids or immune modulating medication. Her pain typically improved with hydromorphone. -: Gradual, days(s) Location: abdomen, left, right, upper extremity, lower extremity Radiation: non-radiation Quality: aching Consistency: constant Improves with: medication, rest Worsens with: medication - Related Data Home Medications Medication Instructions Recorded Confirmed Last Taken Meclizine [Antivert] 25 mg PO TID PRN 09/20/20 09/20/20 Unknown Promethazine [Phenergan] 25 mg PO Q8HR 09/20/20 09/20/20 Unknown Previous Rx's Medication Instructions Recorded Last Taken Type Metoprolol [Lopressor TAB] 12.5 mg PO BID #60 tablet 09/21/20 Unknown Rx Prednisone [predniSONE (Karl) ER 50 mg PO QDAY #14 09/21/20 Unknown Rx TAB] dilTIAZem [Cardizem] 30 mg PO BID #60 09/21/20 Unknown Rx hydroCHLOROthiazide [HCTZ] 25 mg PO QDAY #30 09/21/20 Unknown Rx lisinopriL [Zestril TAB] 5 mg PO QDAY #30 tablet 09/21/20 Unknown Rx Acetaminophen [Non-Aspirin Extra 500 mg PO Q6HR PRN #30 tablet 10/15/20 Unknown Rx Strength] Saba Root [Saba] 250 mg PO QID PRN #30 capsule 10/15/20 Unknown Rx Ondansetron [Zofran Odt] 4 mg PO Q8HR PRN #20 tab.rapdis 10/15/20 Unknown Rx diphenhydrAMINE [Benadryl] 50 mg PO Q8HR PRN #20 capsule 10/15/20 Unknown Rx Allergies Allergy/AdvReac Type Severity Reaction Status Date / Time metoclopramide HCl Allergy Swelling Verified 12/27/15 13:07 [From Reglan] nitroglycerin Allergy Hives Verified 04/26/18 10:59 ondansetron HCl [From Zofran] Allergy Swelling Verified 12/27/15 13:07 Penicillins Allergy Swelling Verified 12/27/15 13:07 prochlorperazine edisylate Allergy Swelling Verified 12/27/15 13:07 [From Compazine] prochlorperazine maleate Allergy Swelling Verified 12/27/15 13:07 [From Compazine] Sulfa (Sulfonamide Allergy Swelling Verified 12/27/15 13:07 Antibiotics) tramadol Allergy Swelling Verified 12/27/15 13:07 ED Review of Systems ROS: Stated complaint: LUPUS Other details as noted in HPI Constitutional: denies: fever, malaise Eyes: denies: vision change ENT: denies: congestion Respiratory: denies: cough Cardiovascular: denies: chest pain Gastrointestinal: abdominal pain, nausea, vomiting Genitourinary: dysuria Musculoskeletal: back pain, arthralgia, myalgia Skin: denies: lesions Neurological: weakness Hematological/Lymphatic: denies: easy bleeding ED Past Medical Hx - Past Medical History Previous Medical History?: Yes Hx Hypertension: Yes Hx CVA: Yes (TIAs) Hx Congestive Heart Failure: Yes Hx Diabetes: No Hx Arthritis: Yes (spine) Hx Headaches / Migraines: Yes Hx Psychiatric Treatment: Yes (anxiety) Hx Asthma: Yes Hx COPD: Yes Additional medical history: vertigo, Obesity. lupus, C.diff. sarcoidosis. Subarachnoid hemorrhage. DDD WITH L5 BULGING DISK, DVT right leg - Surgical History Past Surgical History?: Yes Additional Surgical History: rt lung surgery BIOPSY 2004. x 5, Uterine Ablation. States prior pulmonary embolism - Social History Smoking Status: Current Every Day Smoker Substance Use Type: None - Medications Home Medications: Home Medications Medication Instructions Recorded Confirmed Last Taken Type Meclizine [Antivert] 25 mg PO TID PRN 09/20/20 09/20/20 Unknown History Promethazine [Phenergan] 25 mg PO Q8HR 09/20/20 09/20/20 Unknown History Metoprolol [Lopressor TAB] 12.5 mg PO BID #60 tablet 09/21/20 Unknown Rx Prednisone [predniSONE (Karl) ER 50 mg PO QDAY #14 09/21/20 Unknown Rx TAB] dilTIAZem [Cardizem] 30 mg PO BID #60 09/21/20 Unknown Rx hydroCHLOROthiazide [HCTZ] 25 mg PO QDAY #30 09/21/20 Unknown Rx lisinopriL [Zestril TAB] 5 mg PO QDAY #30 tablet 09/21/20 Unknown Rx Acetaminophen [Non-Aspirin Extra 500 mg PO Q6HR PRN #30 tablet 10/15/20 Unknown Rx Strength] Saba Root [Saba] 250 mg PO QID PRN #30 capsule 10/15/20 Unknown Rx Ondansetron [Zofran Odt] 4 mg PO Q8HR PRN #20 tab.rapdis 10/15/20 Unknown Rx diphenhydrAMINE [Benadryl] 50 mg PO Q8HR PRN #20 capsule 10/15/20 Unknown Rx ED Physical Exam - General Limitations: No Limitations General appearance: alert, obese - Head Head exam: Present: atraumatic, normocephalic - Eye Eye exam: Present: normal appearance, EOMI. Absent: nystagmus - ENT ENT exam: Present: normal exam, normal orophraynx, mucous membranes moist, normal external ear exam - Neck Neck exam: Present: normal inspection, full ROM. Absent: tenderness, meningismus - Respiratory Respiratory exam: Present: decreased breath sounds. Absent: respiratory distress, wheezes, rales, rhonchi, stridor - Cardiovascular Cardiovascular Exam: Present: regular rate, normal rhythm, normal heart sounds. Absent: bradycardia, tachycardia, irregular rhythm, systolic murmur, diastolic murmur, rubs, gallop - GI/Abdominal GI/Abdominal exam: Present: soft, tenderness (Right lower quadrant tenderness to deep palpation). Absent: distended, guarding, rebound, rigid, pulsatile mass - Extremities Exam Extremities exam: Present: normal inspection, full ROM, tenderness (Proximal right thigh tenderness), pedal edema (1+ edema bilateral lower extremity), other (2+ pulses noted in the bilateral upper and lower extremities. There is no palpable cord. negative Homans sign. Muscular compartments are soft. The pelvis is stable.). Absent: calf tenderness - Back Exam Back exam: Present: normal inspection, full ROM. Absent: tenderness, CVA tenderness (R), CVA tenderness (L), paraspinal tenderness, vertebral tenderness - Neurological Exam Neurological exam: Present: alert, other (No facial droop. Tongue midline. Extraocular movements intact bilaterally. Facial sensation intact to light touch in V1, V2, V3 distribution bilaterally. 5 and a 5 strength in 4 extremities. Sensation intact to light touch in 4 extremities.) - Psychiatric Psychiatric exam: Present: normal affect, normal mood - Skin Skin exam: Present: warm, dry, intact, normal color. Absent: rash ED Course Vital Signs 10/15/20 10/15/20 10/15/20 03:09 10:10 10:11 Temperature 98.2 F 98.6 F Pulse Rate 89 Respiratory 20 13 Rate Blood Pressure Blood Pressure 108/61 [Right] O2 Sat by Pulse 100 98 Oximetry 10/15/20 10/15/20 10/15/20 10:14 10:15 10:31 Temperature Pulse Rate 68 67 65 Respiratory 13 15 15 Rate Blood Pressure 123/59 Blood Pressure [Right] O2 Sat by Pulse 100 100 100 Oximetry 10/15/20 10/15/20 10/15/20 10:45 11:01 11:15 Temperature Pulse Rate 62 63 66 Respiratory 16 13 11 L Rate Blood Pressure 123/59 128/75 128/75 Blood Pressure [Right] O2 Sat by Pulse 98 98 99 Oximetry 10/15/20 10/15/20 10/15/20 11:49 12:01 12:15 Temperature Pulse Rate 66 63 67 Respiratory 15 11 L 13 Rate Blood Pressure 128/75 141/61 141/61 Blood Pressure [Right] O2 Sat by Pulse 75 L 100 99 Oximetry 10/15/20 10/15/20 10/15/20 12:31 12:45 13:01 Temperature Pulse Rate 67 79 67 Respiratory 11 L 13 11 L Rate Blood Pressure 141/61 141/61 141/61 Blood Pressure [Right] O2 Sat by Pulse 99 98 96 Oximetry - Reevaluation(s) Reevaluation #1: 10/15/20 09:59 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 Filled ID Written Drug QTY Days Prescriber Rx # Pharmacy * Refills Daily Dose Pymt Type 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 MANAGER 10/03/2020 9 10/03/2020 OXYCODONE-ACETAMINOPHEN 5-325 10.0 2 RO [facility] [id number] [facility] ([id number]) 0 37.5 [facility] [place] 09/22/2020 9 09/21/2020 HYDROMORPHONE 2 MG TABLET 10.0 10 AM KO [id number] [facility] ([id number]) 0 8.0 [place] 08/02/2020 9 08/01/2020 OXYCODONE-ACETAMINOPHEN 10-325 26.0 6 CE FIG [id number] [facility] ([id number]) 0 65.0 MME [place] 07/17/2020 6 07/17/2020 LORAZEPAM 0.5 MG TABLET 21.0 7 [place] BUR [id number] [facility] ([id number]) 0 [place] 07/06/2020 7 07/03/2020 HYDROCODONE-ACETAMIN 7.5-325 15.0 3 OL AIN [id number] [facility] ([id number]) 0 37.5 [place] 06/15/2020 2 06/12/2020 OXYCODONE-ACETAMINOPHEN 5-325 15.0 4 NI MOS [id number] [facility] ([id number]) 0 28.13 [place] 03/31/2020 3 03/28/2020 OXYCODONE-ACETAMINOPHEN 10-325 12.0 3 MA MACHINE II CUTTER [id number] [facility] ([id number]) 0 60.0 [facility] 03/24/2020 8 03/24/2020 OXYCODONE-ACETAMINOPHEN 5-325 6.0 2 ER TRO [id number] [facility] ([id number]) 0 22.5 [place] 03/23/2020 3 03/23/2020 OXYCODONE-ACETAMINOPHEN 10-325 12.0 3 ET DIN [id number] [facility] ([id number]) 0 60.0 [place] 03/17/2020 9 03/15/2020 [id number] 50-325-40 15.0 4 CR DEL [id number] [facility] ([id number]) 0 [place] 03/17/2020 9 03/15/2020 LORAZEPAM 1 MG TABLET 10.0 5 CR DEL [id number] [facility] ([id number]) 0 [place] 03/13/2020 1 03/12/2020 LORAZEPAM 1 MG TABLET 6.0 3 SE NAC [id number] [facility] ([id number]) 0 [place] 02/16/2020 5 02/16/2020 OXYCODONE HCL 5 MG TABLET 10.0 3 SW PRA [id number] [facility] ([id number]) 0 25.0 MME [place] 02/16/2020 5 02/16/2020 [id number] 50-325-40 10.0 1 SW PRA [id number] [facility] ([id number]) 0 [place] 02/16/2020 5 02/16/2020 TEMAZEPAM 15 MG CAPSULE 10.0 10 SW PRA [id number] [facility] ([id number]) 0 [place] 01/27/2020 1 01/19/2020 OXYCODONE-ACETAMINOPHEN 5-325 15.0 4 CR DEL [id number] [facility] ([id number]) 0 28.13 [place] 12/31/2019 3 12/18/2019 OXYCODONE-ACETAMINOPHEN 5-325 15.0 4 CR DEL [id number] [facility] ([id number]) 0 28.13 [place]ME [place] Reevaluation #2: 10/15/20 11:12 Differential diagnosis, including but not limited to: Muscular pain secondary to lupus, lupus flare, pneumonia, urinary tract infection, intra-abdominal infection, appendicitis, renal colic Assessment and plan: 60-year-old female complaining of proximal nontraumatic reproducible right thigh pain, there is no lower extremity asymmetry, ex amination and history not suggestive of DVT, also with right lower quadrant pain, and urinary symptoms, as well as diffuse myalgias. Place patient on cardiac/vascular sonographer. Obtain EKG, urinalysis, x-ray of the chest, appropriate laboratory studies, and CT scan of the abdomen pelvis. We will initiate hydromorphone therapy, and closely observe patient. Reassess after initial data points Reevaluation #3: 10/15/20 11:56 Laboratory studies fairly unremarkable. No active vomiting. Patient playing on her cellular phone. She reports that she is nauseous. She reports she can tolerate Zofran, if premedicated with Benadryl. Advised patient that intramuscular/intravenous diphenhydramine/Benadryl is euphoregenic Therefore, can premedicate with oral diphenhydramine, and administer intravenous Zofran. Patient amenable to this plan of care. EKG fairly unremarkable Reevaluation #4: 10/15/20 13:32 No active vomiting on multiple repeat examinations. Continues to play with her cellular phone. Nursing team unable to establish IV access. Offered patient external jugular IV. She is declining. Counseled patient that CT scan with IV contrast is a superior study, and then a noncontrast CT may be acceptable, however, may miss subtle findings such as inflammation, infection and/or tumor. Patient does not want external jugular IV placed. She is declining further IV placement. She exhibits decision-making capacity at this time. She finds a noncontrast CT scan of the abdomen pelvis to be acceptable option. Therefore, noncontrast CT scan of the abdomen pelvis is ordered. Urinalysis is pending. Reevaluation #5: 10/15/20 14:27 I have conducted an extensive review of this patient's old medical records. In the past, she has been diagnosed with opioid and benzodiazepine dependence. In addition, other providers have indicated that their concern that the patient may have narcotic seeking tendencies. In addition, her CHARMAINE screen was negative, and it is unclear where her diagnosis of lupus was truly made. In addition, it has been documented that she has received Tylenol and Percocet in the past at this hospital, without adverse event. Furthermore, she has had prior CT scans of the abdomen pelvis in the past, which have been negative for acute findings. I have also reviewed the [place] prescription monitoring database, and it appears that the patient has received multiple controlled substances from multiple providers. Urinalysis is not consistent with a urinary tract infection. on multiple repeat evaluations, patient is noted to be playing with her cell phone, with no active vomiting. Assuming CT scan of the abdomen pelvis is negative for acute findings today, which we anticipate, will be happy to discharge the patient with saba, and Zofran, as needed for complaint of unwitnessed and on manifested nausea and vomiting, (patient has had no active vomiting while here in the emergency room), acetaminophen, and she will need to follow-up with a primary care doctor and/or pain specialist. Physical therapy, weight loss may also be of value, would defer to her primary care doctor to further coordinate this. 10/15/20 14:54 I went into the patient's room to discuss my discharge recommendations and plan for outpatient follow-up. During the entire conversation, nurse Radha Watts was present. The patient was advised that she would need to follow-up with an outpatient primary care doctor, and/or vineyard worker. Patient was given a copy of her [place] prescription monitoring database. Patient also advised that I do not feel that steroids are indicated at this time, based off of her history and physical examination, and that I also recommended repeat follow-up with a vineyard worker to definitively rule in/rule out existing diagnosis of lupus. Patient was very dissatisfied with this plan of care. At the end of her conversation, the patient informed us that she was recording us without our knowledge or consent. I requested that the patient remove/delete the recording, as I informed her that she recorded our conversation without my knowledge or consent. I have also escalated this to our housekeeper cleaning cooking nurse, Ms. Garvey, who is going to contact administration and/or risk management, and discussed this with the patient ED Medical Decision Making - Lab Data Result diagrams: 10/15/20 11:08 10/15/20 11:08 Vital Signs 10/15/20 03:09 Temperature 98.2 F Pulse Rate 89 Respiratory 20 Rate Blood Pressure 108/61 [Right] O2 Sat by Pulse 100 Oximetry - EKG Data -: EKG Interpreted by Me EKG shows normal: sinus rhythm Rate: normal - EKG Data 10/15/20 11:56 Sinus rhythm, 65 bpm, normal axis, normal intervals, borderline left ventricular hypertrophy. This EKG is not a STEMI. - Radiology Data Radiology results: report reviewed, image reviewed Print Report Referring Physician: PAYAM MADRIGAL Patient Name: JERRICA MEJIA Date of : 1960 Sex: Female Report Date: 2020-10-15 Report Status: Finalized Findings [facility] [address] [place] [address] XRay Report Signed Patient: JERRICA MEJIA MR#: [id number] : 1960 Acct:[id number] Age/Sex: 60 / F ADM Date: 10/15/20 Loc: ED Attending Dr: Ordering Physician: PAYAM MADRIGAL MD Date of Service: 10/15/20 Procedure(s): XR chest 1V ap Accession Number(s): [id number] cc: PAYAM MADRIGAL MD Fluoro Time In Minutes: CHEST 1 VIEW INDICATION / CLINICAL INFORMATION: lupus flare, abd pain, weak. COMPARISON: 09/20/2020 FINDINGS: SUPPORT DEVICES: None. HEART / MEDIASTINUM: Stable. LUNGS / PLEURA: Interval development of central pulmonary vascular congestion and mild bibasilar opacities. Bilateral small pleural effusions are suspected. No pneumothorax. ADDITIONAL FINDINGS: No significant additional findings. IMPRESSION: 1. Interval development of mild interstitial edema and small bilateral pleural effusions. Signer Name: Main Andre MD Signed: 10/15/2020 10:46 AM Workstation Name: [id number] Transcribed By: Dictated By: MAIN ANDRE Electronically Authenticated By: MAIN ANDRE Signed Date/Time: 10/15/20 1046 DD/ 1045 TD/TT: Critical care attestation.: If time is entered above; I have spent that time in minutes in the direct care of this critically ill patient, excluding procedure time. ED Disposition Clinical Impression: Thigh pain, Obesity, Lower abdominal pain Disposition: DC-01 TO HOME OR SELFCARE Is pt being admited?: No Does the pt Need Aspirin: No Condition: Stable Additional Instructions: Cultures were sent today, and results to be available in the next 3 to 5 days. Please have a primary care doctor contact the medical records department to obtain culture results. Take the pain medication, nausea medication as needed and directed. Mini alirio/avoid consumption of Motrin, ibuprofen, Naprosyn, Aleve, heavy and spicy foods. Review of the [place] prescription monitoring database indicates patient has received multiple controlled substances, from multiple providers. Recommend abstinence/avoidance of controlled substances, such as opioids and benzodiazepines. Long-term utilization of these medications may cause addiction, and dependence, which may lead to , disability, paralysis, loss of quality of life. We recommend aggressive weight loss, and exercise as tolerated. Recommend follow-up with an outpatient primary care doctor, pain specialist within the next week. Recommend follow-up with an outpatient vineyard worker within the next month. As always, the emergency room is open 24 hours a day, 7 days a week and it never closes. Please return to the emergency room right away with new pain, worsened pain, migration of pain, rectal vomiting, change in mental status, confusion, inability to tolerate liquid feeds, new, worsened or different symptoms not present on the initial emergency room evaluation. Prescriptions: diphenhydrAMINE [Benadryl] 50 mg PO Q8HR PRN #20 capsule PRN Reason: Allergic Reaction Saba Root [Asba] 250 mg PO QID PRN #30 capsule PRN Reason: Nausea Acetaminophen [Non-Aspirin Extra Strength] 500 mg PO Q6HR PRN #30 tablet PRN Reason: Pain , Severe (7-10) Ondansetron [Zofran Odt] 4 mg PO Q8HR PRN #20 tab.rapdis PRN Reason: Nausea Referrals: [facility] [Provider Group] - as needed
[2020-10-15] MEDS ORDERED: SODIUM CHLORIDE 0.9% 500 ML 500 ML IV ONE (10:11)
--- NOTE | 2020-10-15 10:51 | XRay Report ---
CHEST 1 VIEW INDICATION / CLINICAL INFORMATION: lupus flare, abd pain, weak. COMPARISON: 09/20/2020 FINDINGS: SUPPORT DEVICES: None. HEART / MEDIASTINUM: Stable. LUNGS / PLEURA: Interval development of central pulmonary vascular congestion and mild bibasilar opac ities. Bilateral small pleural effusions are suspected. No pneumothorax. ADDITIONAL FINDINGS: No significant additional findings. IMPRESSION: 1. Interval development of mild interstitial edema and small bilateral pleural effusions. Signer Name: Main Elkins MD Signed: 10/15/2020 10:46 AM Workstation Name: [id number]
[2020-10-15] MEDS ORDERED: HYDROmorphone 1 MG/1 ML INJ IV ONE (11:13)
[2020-10-15 11:35] LABS: Basophils % (Auto) 0.3 % (0.0-1.8); Eosinophils # (Auto) 0.2 K/mm3 (0.0-0.4); Hematocrit 35.3 % (30.3-42.9); Hemoglobin 11.7 gm/dl (10.1-14.3); Lymphocytes # (Auto) 2.9 K/mm3 (1.2-5.4); Lymphocytes % (Auto) 35.6 % (13.4-35.0); Mean Corpuscular HGB Conc 33 % (30-34); Mean Corpuscular Volume 88 fl (79-97); Monocytes # (Auto) 0.8 K/mm3 (0.0-0.8); Platelet Count 311 K/mm3 (140-440); Red Blood Count 4.01 M/mm3 (3.65-5.03); Red Cell Distribution Width 14.1 % (13.2-15.2)
[2020-10-15 11:49] LABS: Alanine Aminotransferase 10 units/L (7-56); Albumin 3.9 g/dL (3.9-5); BUN/Creatinine Ratio 28; Blood Urea Nitrogen 22 mg/dL (7-17); Calcium 9.8 mg/dL (8.4-10.2); Hemolysis Index 94
[2020-10-15] MEDS ORDERED: ONDANSETRON 4 MG/2 ML INJ IV ONE (11:55)
[2020-10-15] MEDS ORDERED: diphenhydrAMINE 25 MG/10 ML ORAL LIQUID PO ONE (11:55)
[2020-10-15 11:57] LABS: INR 1.05 (0.87-1.13)
[2020-10-15 12:48] VITALS: BP 141/61
[2020-10-15] MEDS ORDERED: ONDANSETRON 4 MG ODT TAB PO ONE (13:30)
[2020-10-15] MEDS ORDERED: HYDROmorphone 1 MG/1 ML INJ IM ONE (13:30)
[2020-10-15 14:03] LABS: Bilirubin,Urine NEG (Negative); Blood,Urine NEG (Negative); Color,Urine Straw (Yellow); Mucus,Urine FEW /HPF; Protein,Urine <15 mg/dL mg/dL (Negative); Urobilinogen,Urine < 2.0 mg/dL (<2.0); WBC,Urine < 1.0 /HPF (0.0-6.0)
--- NOTE | 2020-10-15 14:33 | Cat Scan Report ---
CT abdomen pelvis wo con INDICATION: Lower abdominal pain.. COMPARISON: None TECHNIQUE: Abdominal and pelvic CT exam performed. All CT scans at this location are performed using CT dose reduction for ALARA by means of automated exposure control. FINDINGS: CT ABDOMEN and PELVIS: Lung Bases: No significant abnormality. Liver: No significant abnormality. Biliary: No significant abnormality. Spleen: No significant abnormality. Pancreas: No significant abnormality. Adrenals: No significant abnormality. Kidneys: No significant abnormality. Lymphatics: No lymphadenopathy. Vasculature: No significant abnormality. Bowel: No significant abnormality. Normal appendix. Pelvis: No significant abnormality. Osseous Structures: No aggressive osseous lesion. Additional Findings: None IMPRESSION: 1. No significant abnormality of the abdomen or pelvis. Signer Name: Wale Waldrop MD Signed: 10/15/2020 2:28 PM Workstation Name: [id number]
== END 2020-10-15 16:15 | disposition home or self-care (01) ==
LOC: ED 03:05
DX: R10.31 Right lower quadrant pain (principal); M79.651 Pain in right thigh; R30.0 Dysuria; M79.89 Other specified soft tissue disorders; I11.0 Hypertensive heart disease with heart failure; I50.9 Heart failure, unspecified; G43.909 Migraine, unspecified, not intractable, without status migrainosus; F41.9 Anxiety disorder, unspecified; J44.9 Chronic obstructive pulmonary disease, unspecified; F17.200 Nicotine dependence, unspecified, uncomplicated; Z86.73 Personal history of transient ischemic attack (TIA), and cerebral infarction without residual deficits; Z98.890 Other specified postprocedural states; Z79.899 Other long term (current) drug therapy; Z88.0 Allergy status to penicillin; Z88.8 Allergy status to other drugs, medicaments and biological substances
CPT/HCPCS: 36415; 71045; 74176; 80053; 81001; 82550; 83735; 83880; 85025; 85610; 87086; 93005; 96372; 99285; J1170; Q0163; J2405; Q0162

== ENCOUNTER 2021-01-24 10:25 | Emergency (ER) | payer MEDICAID ==
[2021-01-24 10:30] VITALS: BP 135/78
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
--- NOTE | 2021-01-24 11:38 | XRay Report ---
CHEST 2 VIEWS INDICATION / CLINICAL INFORMATION: pain to chest. COMPARISON: 10/15/2020 FINDINGS: SUPPORT DEVICES: None. HEART / MEDIASTINUM: Stable mild cardiomegaly. LUNGS / PLEURA: No significant pulmonary or pleural abnormality. No pneumothorax. ADDITIONAL FINDINGS: No significant additional findings. IMPRESSION: 1. Stable mild cardiomegaly without acute abnormality. Signer Name: Aj Guerrero MD Signed: 01/24/2021 11:33 AM Workstation Name: [id number]
--- NOTE | 2021-01-24 11:38 | XRay Report ---
LUMBAR SPINE AP AND LATERAL VIEWS INDICATION / CLINICAL INFORMATION: Low back pain. COMPARISON: 05/28/2019 FINDINGS: BONES/JOINT(S): No acute fracture or subluxation. Unchanged grade 1 anterolisthesis at L4-5 and moder ate degenerative disc disease at L5-S1. SOFT TISSUES: No significant abnormality. ADDITIONAL FINDINGS: None. Signer Name: Aj Guerrero MD Signed: 01/24/2021 11:34 AM Workstation Name: [id number]
[2021-01-24] MEDS ORDERED: HYDROcodone/ACETAMINOPHEN 5-325 MG TAB PO ONE (13:10)
== END 2021-01-24 13:43 | disposition home or self-care (01) ==
LOC: ED 10:25
DX: S30.0XXA Contusion of lower back and pelvis, initial encounter (principal); I11.0 Hypertensive heart disease with heart failure; I50.9 Heart failure, unspecified; M19.90 Unspecified osteoarthritis, unspecified site; F41.9 Anxiety disorder, unspecified; J44.9 Chronic obstructive pulmonary disease, unspecified; F17.200 Nicotine dependence, unspecified, uncomplicated; Z98.890 Other specified postprocedural states; Z79.899 Other long term (current) drug therapy; Z88.0 Allergy status to penicillin; Z88.6 Allergy status to analgesic agent; Z88.8 Allergy status to other drugs, medicaments and biological substances; W10.9XXA Fall (on) (from) unspecified stairs and steps, initial encounter; Y93.89 Activity, other specified; Y92.89 Other specified places as the place of occurrence of the external cause; Y99.8 Other external cause status
CPT/HCPCS: 71046; 72100; 99283

== ENCOUNTER 2021-01-31 12:13 | Emergency (ER) | payer MEDICAID ==
[2021-01-31 12:34] VITALS: BP 157/76
--- NOTE | 2021-01-31 12:44 | Emergency Department Report ---
Blank Doc - Documentation Documentation: 60-year-old female that presents with lower abdominal pain with nausea and blood in stool. Had a recent fall and was seen in the ED. 1- This initial assessment/diagnostic orders/clinical plan/ treatment(s) is/are subject to change based on pt's health status, clinical progression and re- assessment by fellow clinical providers in the ED. Further treatment and workup at subsequent clinical provers discretion. Patient/guardians urged not to elope from ED as their condition may be serious if not clinically assessed and managed. 2-labs 3-UA
[2021-01-31 14:20] LABS: Hematocrit 34.2 % (30.3-42.9); Hemoglobin 11.2 gm/dl (10.1-14.3); Mean Corpuscular HGB Conc 33 % (30-34); Mean Corpuscular Volume 90 fl (79-97); Platelet Count 259 K/mm3 (140-440); Red Blood Count 3.79 M/mm3 (3.65-5.03); Red Cell Distribution Width 14.5 % (13.2-15.2)
[2021-01-31 14:42] LABS: Alanine Aminotransferase 29 units/L (7-56); BUN/Creatinine Ratio 27; Blood Urea Nitrogen 27 mg/dL (7-17); Calcium 9.3 mg/dL (8.4-10.2); Hemolysis Index 379
[2021-01-31 15:19] LABS: Total Cells Counted 100
[2021-01-31 15:20] LABS: Platelet Estimate Consistent w Auto; RBC Morphology Normal
== END 2021-01-31 16:18 | disposition left against medical advice (07) ==
LOC: ED 12:13
DX: R11.0 Nausea (principal); Z53.21 Procedure and treatment not carried out due to patient leaving prior to being seen by health care provider
CPT/HCPCS: 36415; 80053; 83690; 85007; 85025

== ENCOUNTER 2021-06-28 19:03 | Emergency (ER) | payer MEDICAID ==
[2021-06-28 21:10] VITALS: BP 111/69
--- NOTE | 2021-06-28 21:17 | Event Note ---
ED Screening Note ED Screening Note: Patient presents for right leg swelling and pain that began a few days ago She has a history of lupus This initial assessment/diagnostic orders/clinical plan/treatment(s) is/are subject to change based on patients health status, clinical progression and re- assessment by fellow clinical providers in the ED. Further treatment and workup at subsequent clinical providers discretion. Patient/guardian urged not to elope from the ED as their condition may be serious if not clinically assessed and managed. Initial orders include: Labs, ultrasound
[2021-06-28 22:07] LABS: Hemoglobin 12.5 gm/dl (10.1-14.3); Mean Corpuscular HGB Conc 33 % (30-34); Mean Corpuscular Volume 88 fl (79-97); Platelet Count 295 K/mm3 (140-440); Red Blood Count 4.32 M/mm3 (3.65-5.03); Red Cell Distribution Width 13.9 % (13.2-15.2)
[2021-06-28 22:09] LABS: Basophils % (Auto) 0.4 % (0.0-1.8); Eosinophils % (Auto) 1.8 % (0.0-4.3); Lymphocytes % (Auto) 28.9 % (13.4-35.0)
[2021-06-28 22:10] LABS: Eosinophils # (Auto) 0.2 K/mm3 (0.0-0.4); Monocytes # (Auto) 0.9 K/mm3 (0.0-0.8)
[2021-06-28 22:21] LABS: Alanine Aminotransferase 10 units/L (7-56); Albumin 3.9 g/dL (3.9-5); BUN/Creatinine Ratio 21; Blood Urea Nitrogen 23 mg/dL (7-17); Hemolysis Index 17
--- NOTE | 2021-06-28 22:49 | Vascular Lab Report ---
DUPLEX DOPPLER LOWER EXTREMITY VEINS, RIGHT INDICATION / CLINICAL INFORMATION: right leg swelling and pain. TECHNIQUE: Duplex doppler imaging was performed through the veins of the right lower extremity using venous comp ression and other maneuvers. COMPARISON: None available. FINDINGS: RIGHT COMMON FEMORAL VEIN: Negative. RIGHT FEMORAL VEIN: Negative. RIGHT POPLITEAL VEIN: Negative. RIGHT CALF VEINS: Negative. ADDITIONAL FINDINGS: None. IMPRESSION: 1. No sonographic evidence for DVT in the right lower extremity. Signer Name: Shad Peacock MD Signed: 06/28/2021 10:45 PM Workstation Name: [id number]
[2021-06-29] MEDS ORDERED: oxyCODONE /ACETAMINOPHEN 5-325MG TAB PO ONE (00:29)
[2021-06-29] MEDS ORDERED: KETOROLAC 30 MG/1 ML INJ IM ONE (00:29)
[2021-06-29] MEDS ORDERED: dexAMETHasone 20 MG/5 ML VIAL IM ONE (00:29)
[2021-06-29] MEDS ORDERED: diphenhydrAMINE 50 MG/ML VIAL IM ONE (01:00)
[2021-06-29] MEDS ORDERED: diphenhydrAMINE 50 MG/ML VIAL ONE (01:01)
--- NOTE | 2021-06-29 01:20 | Emergency Department Report ---
ED Extremity Problem HPI - General Chief complaint: Pain General Stated complaint: LUPUS FLARE/BODY ACHES AND SWELLING Time Seen by Provider: 06/28/21 21:15 Source: patient Mode of arrival: Wheelchair Limitations: Physical Limitation - History of Present Illness Initial comments: Patient is a 60-year-old -[place] female with a history of morbid obesity, hypertension, TIA, CHF, DVT of right leg, chronic osteoarthritis, migraine headaches, chronic low back pain due to chronic lumbar disc disease, sarcoidosis, SLE, asthma and COPD as well as anxiety presents to the ED with complaint of acute onset persistent nontraumatic right hip pain that radiates to the right foot for the last 2 days, worse in the last 24 hours. Patient states that she usually takes Percocet 7.5 mg - 325 mg but admits not to have taken this medication for pain prior to arrival in the ED. Patient states that the pain is especially worse with ambulation, and states that in the last 12 hours she has been on the bed unable to bear weight on the right leg. Patient states that her current symptoms are typical of her chronic pain with exacerbations and she suspects that the pain is due to SLE flare. Patient denies fall, traumatic injury, heavy lifting, chest pain, shortness of breath, nausea and vomiting, fever, chills, dizziness, back pain, cough, headache, syncope or numbness and tingling or weakness of lower extremities bilaterally. MD Complaint: extremity pain (Right hip and foot pain), joint paint (Right hip and foot pain) -: Sudden, days(s) (2) Location: right, lower extremity (Right hip and foot pain) History of Same: Yes (Chronic pain due to SLE) -: Yes arthralgia (Right foot and hip pain) Radiation: distal Severity scale (0 -10): 8 Quality: aching, sharp Consistency: constant Improves with: nothing Worsens with: weight bearing, walking, exertion, palpation Associated Symptoms: denies other symptoms, arthralgias (Right foot and hip pain). denies: chest pain, shortness of breath, fever, myalgias, rash - Related Data Home Medications Medication Instructions Recorded Confirmed Last Taken Meclizine [Antivert] 25 mg PO TID PRN 09/20/20 09/20/20 Unknown Promethazine [Phenergan] 25 mg PO Q8HR 09/20/20 09/20/20 Unknown Previous Rx's Medication Instructions Recorded Last Taken Type Metoprolol [Lopressor TAB] 12.5 mg PO BID #60 tablet 09/21/20 Unknown Rx Prednisone [predniSONE (Karl) ER 50 mg PO QDAY #14 09/21/20 Unknown Rx TAB] dilTIAZem [Cardizem] 30 mg PO BID #60 09/21/20 Unknown Rx hydroCHLOROthiazide [HCTZ] 25 mg PO QDAY #30 09/21/20 Unknown Rx lisinopriL [Zestril TAB] 5 mg PO QDAY #30 tablet 09/21/20 Unknown Rx Acetaminophen [Non-Aspirin Extra 500 mg PO Q6HR PRN #30 tablet 10/15/20 Unknown Rx Strength] Lizzeth Root [Lizzeth] 250 mg PO QID PRN #30 capsule 10/15/20 Unknown Rx Ondansetron [Zofran Odt] 4 mg PO Q8HR PRN #20 tab.rapdis 10/15/20 Unknown Rx diphenhydrAMINE [Benadryl] 50 mg PO Q8HR PRN #20 capsule 10/15/20 Unknown Rx Acetaminophen/Codeine [Tylenol 1 tab PO Q6H PRN #10 tab 01/24/21 Unknown Rx /Codeine # 3 tab] methOCARBAMOL [Robaxin TAB] 750 mg PO Q8H #21 tablet 01/24/21 Unknown Rx Baclofen 20 mg PO Q12H PRN #30 tablet 06/29/21 Unknown Rx predniSONE [Deltasone] 60 mg PO QDAY #15 tab 06/29/21 Unknown Rx Allergies Allergy/AdvReac Type Severity Reaction Status Date / Time ketorolac [From Toradol] Allergy Hives Verified 06/29/21 00:59 metoclopramide HCl Allergy Swelling Verified 01/24/21 10:31 [From Reglan] nitroglycerin Allergy Hives Verified 01/24/21 10:31 ondansetron HCl [From Zofran] Allergy Swelling Verified 01/24/21 10:31 Penicillins Allergy Swelling Verified 01/24/21 10:31 prochlorperazine edisylate Allergy Swelling Verified 01/24/21 10:31 [From Compazine] prochlorperazine maleate Allergy Swelling Verified 01/24/21 10:31 [From Compazine] Sulfa (Sulfonamide Allergy Swelling Verified 01/24/21 10:31 Antibiotics) tramadol Allergy Swelling Verified 01/24/21 10:31 dexamethasone [From Decadron] AdvReac Itching Verified 06/29/21 00:59 ED Review of Systems ROS: Stated complaint: LUPUS FLARE/BODY ACHES AND SWELLING Other details as noted in HPI Constitutional: denies: chills, fever Eyes: denies: eye pain, eye discharge, vision change ENT: denies: ear pain, throat pain Respiratory: denies: cough, shortness of breath, wheezing Cardiovascular: denies: chest pain, palpitations Endocrine: no symptoms reported Gastrointestinal: denies: abdominal pain, nausea, diarrhea Genitourinary: denies: urgency, dysuria, discharge Musculoskeletal: arthralgia (Right hip and foot pain). denies: back pain, joint swelling Skin: denies: rash, lesions Neurological: denies: headache, weakness, paresthesias Psychiatric: denies: anxiety, depression Hematological/Lymphatic: denies: easy bleeding, easy bruising ED Past Medical Hx - Past Medical History Previous Medical History?: Yes Hx Hypertension: Yes Hx CVA: Yes (TIAs) Hx Congestive Heart Failure: Yes Hx Diabetes: No Hx Arthritis: Yes (spine) Hx Headaches / Migraines: Yes Hx Psychiatric Treatment: Yes (anxiety) Hx Asthma: Yes Hx COPD: Yes Additional medical history: vertigo, Obesity. lupus, C.diff. sarcoidosis. Subarachnoid hemorrhage. DDD WITH L5 BULGING DISK, DVT right leg - Surgical History Past Surgical History?: Yes Additional Surgical History: rt lung surgery BIOPSY 2004. x 5, Uterine Ablation. States prior pulmonary embolism - Social History Smoking Status: Never Smoker Substance Use Type: None - Medications Home Medications: Home Medications Medication Instructions Recorded Confirmed Last Taken Type Meclizine [Antivert] 25 mg PO TID PRN 09/20/20 09/20/20 Unknown History Promethazine [Phenergan] 25 mg PO Q8HR 09/20/20 09/20/20 Unknown History Metoprolol [Lopressor TAB] 12.5 mg PO BID #60 tablet 09/21/20 Unknown Rx Prednisone [predniSONE (Karl) ER 50 mg PO QDAY #14 09/21/20 Unknown Rx TAB] dilTIAZem [Cardizem] 30 mg PO BID #60 09/21/20 Unknown Rx hydroCHLOROthiazide [HCTZ] 25 mg PO QDAY #30 09/21/20 Unknown Rx lisinopriL [Zestril TAB] 5 mg PO QDAY #30 tablet 09/21/20 Unknown Rx Acetaminophen [Non-Aspirin Extra 500 mg PO Q6HR PRN #30 tablet 10/15/20 Unknown Rx Strength] Lizzeth Root [Lizzeth] 250 mg PO QID PRN #30 capsule 10/15/20 Unknown Rx Ondansetron [Zofran Odt] 4 mg PO Q8HR PRN #20 tab.rapdis 10/15/20 Unknown Rx diphenhydrAMINE [Benadryl] 50 mg PO Q8HR PRN #20 capsule 10/15/20 Unknown Rx Acetaminophen/Codeine [Tylenol 1 tab PO Q6H PRN #10 tab 01/24/21 Unknown Rx /Codeine # 3 tab] methOCARBAMOL [Robaxin TAB] 750 mg PO Q8H #21 tablet 01/24/21 Unknown Rx Baclofen 20 mg PO Q12H PRN #30 tablet 06/29/21 Unknown Rx predniSONE [Deltasone] 60 mg PO QDAY #15 tab 06/29/21 Unknown Rx ED Physical Exam - General Limitations: Physical Limitation General appearance: alert, in no apparent distress - Head Head exam: Present: atraumatic, normocephalic, normal inspection - Eye Eye exam: Present: normal appearance, PERRL, EOMI Pupils: Present: normal accommodation - ENT ENT exam: Present: normal exam, normal orophraynx, mucous membranes moist, TM's normal bilaterally, normal external ear exam - Neck Neck exam: Present: normal inspection, full ROM - Respiratory Respiratory exam: Present: normal lung sounds bilaterally. Absent: respiratory distress, wheezes, rales, rhonchi, stridor, chest wall tenderness, accessory muscle use, decreased breath sounds - Cardiovascular Cardiovascular Exam: Present: normal rhythm, tachycardia, normal heart sounds. Absent: systolic murmur, diastolic murmur, rubs, gallop - GI/Abdominal GI/Abdominal exam: Present: soft, normal bowel sounds. Absent: tenderness, gu arding, rebound, hyperactive bowel sounds, hypoactive bowel sounds, organomegaly - Extremities Exam Extremities exam: Present: normal inspection, full ROM, tenderness (Palpable right foot and hip tenderness), normal capillary refill. Absent: pedal edema, joint swelling, calf tenderness - Back Exam Back exam: Present: normal inspection, full ROM. Absent: tenderness, CVA tenderness (R), CVA tenderness (L), muscle spasm, paraspinal tenderness, vertebral tenderness, rash noted - Neurological Exam Neurological exam: Present: alert, oriented X3, CN II-XII intact, normal gait, reflexes normal - Psychiatric Psychiatric exam: Present: normal affect, normal mood - Skin Skin exam: Present: warm, dry, intact, normal color. Absent: rash ED Course Vital Signs 06/28/21 21:08 Temperature 98.7 F Pulse Rate 111 H Respiratory 17 Rate Blood Pressure 111/69 O2 Sat by Pulse 100 Oximetry ED Medical Decision Making - Lab Data Result diagrams: 06/28/21 21:31 06/28/21 21:31 - Radiology Data Radiology results: report reviewed, image reviewed [facility] [address] [place] [address] Vascular Lab Report Signed Patient: JERRICA MEJIA MR#: [id number] : 1960 Acct:[id number] Age/Sex: 60 / F ADM Date: 06/28/21 Loc: ED Attending Dr: Ordering Physician: AUBREY CHOUDHURY Date of Service: 06/28/21 Procedure(s): VL venous duplex LE RT Accession Number(s): [id number] cc: AUBREY CHOUDHURY DUPLEX DOPPLER LOWER EXTREMITY VEINS, RIGHT INDICATION / CLINICAL INFORMATION: right leg swelling and pain. TECHNIQUE: Duplex doppler imaging was performed through the veins of the right lower extremity using venous compression and other maneuvers. COMPARISON: None available. FINDINGS: RIGHT COMMON FEMORAL VEIN: Negative. RIGHT FEMORAL VEIN: Negative. RIGHT POPLITEAL VEIN: Negative. RIGHT CALF VEINS: Negative. ADDITIONAL FINDINGS: None. IMPRESSION: 1. No sonographic evidence for DVT in the right lower extremity. Signer Name: Shad Peacock MD Signed: 06/28/2021 10:45 PM Workstation Name: [id number] Transcribed By: SONIA Dictated By: Shad Peacock MD Electronically Authenticated By: Shad Peacock MD Signed Date/Time: 06/28/212244 DD/ 43 TD/TT: Print - Medical Decision Making This is a 60-year-old -[place] female with a history of morbid obesity, hypertension, TIA, CHF, DVT of right leg, chronic osteoarthritis, migraine headaches, chronic low back pain due to chronic lumbar disc disease, sarcoidosi s, SLE, asthma and COPD as well as anxiety presents to the ED with complaint of acute onset persistent nontraumatic right hip pain that radiates to the right foot for the last 2 days, worse in the last 24 hours. Patient states that she usually takes Percocet 7.5 mg - 325 mg but admits not to have taken this medication for pain prior to arrival in the ED. Patient states that the pain is especially worse with ambulation, and states that in the last 12 hours she has been on the bed unable to bear weight on the right leg. Patient states that her current symptoms are typical of her chronic pain with exacerbations and she suspects that the pain is due to SLE flare. In the ED, patient is alert and oriented x3 and is not in any distress but anxious, tachycardic in triage but afebrile. Patient crying during the physical exam due to pain. Lab test results were reviewed and are all nonactionable. Right lower extremity Doppler ultrasound showed no sonographic evidence of DVT. Patient was treated for pain in the ED and on reevaluation with patient's pain is well controlled medication, and tachycardia also resolved. Patient was discharged home and advised to take her regular pain medications at home and to follow-up with her primary care physician in 5 to 7 days for reevaluation. Patient was advised return to the ED immediately if symptoms get worse. - Differential Diagnosis muscle strain; muscle spasm; Osteoarthritis; DVT; Critical care attestation.: If time is entered above; I have spent that time in minutes in the direct care of this critically ill patient, excluding procedure time. ED Disposition Clinical Impression: Muscle spasm of right lower extremity, Chronic idiopathic pain syndrome, Chronic osteoarthritis Muscle strain of right lower extremity Qualifiers: Encounter type: initial encounter Qualified Code(s): S86.911A - Strain of unspecified muscle(s) and tendon(s) at lower leg level, right leg, initial encounter Disposition: TO HOME OR SELFCARE Is pt being admited?: No Does the pt Need Aspirin: No Condition: Stable Instructions: Muscle Cramps and Spasms, [id number], Arthritis, [id number], Chronic Pain, Adult Additional Instructions: All lab test results were reviewed and are all nonactionable. Right leg Doppler ultrasound showed no sonographic evidence of DVT. Your symptoms are likely due to muscle strain or muscle spasm or chronic osteoarthritis or chronic pain exacerbation. Therefore take your regular pain medications with muscle relaxants, follow-up with your primary care physician in 7 to 10 days for reeval uation. Return to the ED immediately if symptoms get worse. Prescriptions: Baclofen 20 mg PO Q12H PRN #30 tablet PRN Reason: Muscle Spasm predniSONE [Deltasone] 60 mg PO QDAY #15 tab Referrals: [facility] [Provider Group] - 7-10 days Time of Disposition: 01:21 Print Language: DIVEHI
== END 2021-06-29 03:05 | disposition home or self-care (01) ==
LOC: ED 19:03
DX: S86.911A Strain of unspecified muscle(s) and tendon(s) at lower leg level, right leg, initial encounter (principal); G89.4 Chronic pain syndrome; M19.09 Primary osteoarthritis, other specified site; I11.0 Hypertensive heart disease with heart failure; M19.90 Unspecified osteoarthritis, unspecified site; F41.8 Other specified anxiety disorders; G43.909 Migraine, unspecified, not intractable, without status migrainosus; J45.909 Unspecified asthma, uncomplicated; J44.9 Chronic obstructive pulmonary disease, unspecified; Z98.890 Other specified postprocedural states; Z88.6 Allergy status to analgesic agent; Z88.0 Allergy status to penicillin; Z88.8 Allergy status to other drugs, medicaments and biological substances; X58.XXXA Exposure to other specified factors, initial encounter; Y92.89 Other specified places as the place of occurrence of the external cause; Y93.89 Activity, other specified; Y99.8 Other external cause status
CPT/HCPCS: 36415; 80053; 83880; 85025; 86140; 93971; 96372; 99284; J1100; J1200; J1885